=== PATIENT | female | born 1945 | race Caucasian/White ===

== ENCOUNTER 2016-09-29 07:31 | Inpatient (IN) ==
--- NOTE | 2016-09-28 20:54 | Discharge Summary ---
<Torri Sweet Karla - Last Filed: 09/28/16 20:52> Date of Encounter: 09/28/16 - Discharge Diagnosis (1) Arthritis of knee, left Priority: Primary Status: Acute (2) HTN (hypertension) Priority: Secondary Status: Chronic Qualifiers: Hypertension type: essential hypertension Qualified Code(s): I10 - Essential (primary) hypertension (3) A-fib Priority: Secondary Status: Chronic Qualifiers: Atrial fibrillation type: chronic Qualified Code(s): I48.2 - Chronic atrial fibrillation (4) Anticoagulated on Coumadin Priority: Secondary Status: Chronic - Discharge Medications Home Medications: Alendronate Sodium [Fosamax] 70 mg PO FR 11/18/15 [History] Hydrochlorothiazide 12.5 mg PO QAM 11/18/15 [History] Lovastatin [Mevacor] 20 mg PO HS 11/18/15 [History] Metoprolol XL (24 HR) Succ [Toprol XL] 25 mg PO QAM 11/18/15 [History] Omeprazole [PriLOSEC] 20 mg PO QAM 11/18/15 [History] PredniSONE 5 mg PO QAM 11/18/15 [History] Warfarin [Coumadin] 2.5 mg PO Q48H 11/18/15 [History] OxyCODONE Immed Rel [Roxicodone 5 MG] 5 - 10 mg PO Q6HR PRN #40 tablet 09/28/16 [Rx] Amlodipine Besylate 2.5 mg PO HS 09/29/16 [History] Enoxaparin [Lovenox] 30 mg SQ Q12HR 09/29/16 [History] Warfarin [Coumadin] 5 mg PO Q48H 09/29/16 [History] Allergies/Adverse Reactions: Allergies codeine Allergy (Verified 09/29/16 11:47) Dizziness albuterol Adverse Reaction (Verified 09/29/16 11:47) Blisters in mouth cephalexin [From Keflex] Adverse Reaction (Verified 09/29/16 11:47) blisters in mouth levofloxacin Adverse Reaction (Verified 09/29/16 11:47) patient unsure of reaction Primary care physician: Iván Rees - Patient Status Disposition: Home, Self-Care Condition: Good - Discharge Instructions Follow Up With: Ashwin Muñoz MD [Partnered Physician] - 10/26/16 10:35 am Trori Sweet, TRUONG [Physician Field Service Consultant] - 10/07/16 1:30 pm Eduardo Floyd DO [Primary Care Provider] - Tobias Perez DO [Partnered Physician] - 10/05/16 8:35 am - Hospital Course Hospital course: Ms. Sabillon is a 71 year old female - Time Spent with Patient Total time spent providing and/or coordinating discharge services: <ToniAshwin - Last Filed: 09/30/16 07:47> Date of Encounter: 09/30/16 Time of Encounter: 07:47 - Discharge Diagnosis (1) Arthritis of knee, left Priority: Primary Status: Acute (2) A-fib Priority: Secondary Status: Chronic Qualifiers: Atrial fibrillation type: chronic Qualified Code(s): I48.2 - Chronic atrial fibrillation (3) Anticoagulated on Coumadin Priority: Secondary Status: Chronic (4) HTN (hypertension) Priority: Secondary Status: Chronic Qualifiers: Hypertension type: essential hypertension Qualified Code(s): I10 - Essential (primary) hypertension (5) KRANTHI (acute kidney injury) Priority: Secondary Status: Resolved (6) Acute blood loss anemia Priority: Primary Status: Acute Primary care physician: Iván Rees - Patient Status Functional capacity at discharge: uses cane/walker Overall status at discharge: patient is progressing back to baseline - Hospital Course Hospital course: Ms. Sabillon is a 71 year old female The patient had an uneventful postoperative course. They received antibiotics and physical therapy and were discharged in stable condition. There will follow -up in the office in 2 weeks. Aspirin DVT prophylaxis - Time Spent with Patient Total time spent providing and/or coordinating discharge services:
[2016-09-29] MEDS ORDERED: Lidocaine 1% 20 ML MDV ID ONE (07:56)
[2016-09-29] MEDS ORDERED: Ringers Solution, Lactated 1,000 ML IVC SCH ×2 (08:00→11:19)
[2016-09-29] MEDS ORDERED: *HR* FentaNYL (PF) 100 MCG/2 ML VIAL ONE (08:01)
[2016-09-29] MEDS ORDERED: *HR* Midazolam HCl 2 MG/2 ML VIAL ONE (08:01)
[2016-09-29] MEDS ORDERED: *HR* Propofol 200 MG/20 ML VIAL IVP ONE (08:01)
[2016-09-29] MEDS ORDERED: Clindamycin 900 MG/50 ML 900 MG/50 ML IV.SOLN IVPB ONE (08:02)
--- NOTE | 2016-09-29 08:13 | History & Physical Report ---
Date of Encounter: 09/29/16 Time of Encounter: 08:12 24 Hour HP Update - Instructions Instructions: If the History and Physical is less than 30 days old and was completed prior to A.M. admission and or procedure and has NOT been updated on calendar day of procedure please complete this update prior to performing procedure. - Update Patient reports changes in Medical Condition: No Changes in assessment/condition: No Changes in Medication: No Preop tests/diagnostics Reviewed: Yes Surgery Remains Indicated: Yes Consent for Planned Operative Procedure(s) Verified: Yes - Pre-Operative Checklist Preoperative Checklist Indicated: No Prophylactic Antibiotic Ordered: Yes Is VTE Prophylaxis Indicated?: Yes
--- NOTE | 2016-09-29 08:14 | Anesthesia Evaluation PreOp ---
Date of Encounter: 09/29/16 Time of Encounter: 08:12 - Past History Planned Operation: left TKA Cardiac History: HTN, Hyperlipidemia, Arrhythmia (afib) Pulmonary History: Denies Any Significant HX SOLE STAPLER WELT History: CVA (resolved, no deficits) Other Medical History: Other (anemia, rheumatoid arthritis) Anesthesia History: No Prior Anesthetic Complications, Past Anesthesia (partial hysterectomy, laparoscopy, back surgery. No problems) : No Alcohol Use: none Drug use: none Medications and Allergies Amlodipine [Norvasc] 5 mg PO HS tablet 04/24/15 [Rx] Cholecalciferol (D-3) 1,000 unit PO DAILY tablet 04/24/15 [Rx] Lisinopril [Zestril] 10 mg PO BID tablet 04/24/15 [Rx] Metoprolol XL (24 HR) Succ [Toprol XL] 25 mg PO DAILY #30 tab.er.24h 04/24/15 [ Rx] Omeprazole [PriLOSEC] 20 mg PO DAILY@0600 capsule 04/24/15 [Rx] PredniSONE 5 mg PO DAILY tablet 04/24/15 [Rx] Warfarin [Coumadin] 5.5 mg PO 1800 tablet 04/24/15 [Rx] Alendronate Sodium [Fosamax] 70 mg PO QWEEK 11/18/15 [History] Amiodarone [Cordarone] 200 mg PO Q12H 11/18/15 [History] Hydrochlorothiazide 12.5 mg PO QAM 11/18/15 [History] Lovastatin [Mevacor] 20 mg PO HS 11/18/15 [History] Metoprolol XL (24 HR) Succ [Toprol XL] 25 mg PO QAM 11/18/15 [History] Omeprazole [PriLOSEC] 20 mg PO QAM 11/18/15 [History] PredniSONE 5 mg PO QAM 11/18/15 [History] Warfarin [Coumadin] 2.5 mg PO Q48H 11/18/15 [History] Warfarin [Coumadin] 3 mg PO Q48H 11/18/15 [History] MetroNIDAZOLE [Flagyl] 500 mg PO TID #21 tablet 11/21/15 [Rx] Potassium Chloride 20 meq PO BID #6 tab.er.prt 11/21/15 [Rx] OxyCODONE Immed Rel [Roxicodone 5 MG] 5 - 10 mg PO Q6HR PRN #40 tablet 09/28/16 [Rx] Allergies albuterol Allergy (Verified 05/16/16 14:27) Blister codeine Allergy (Verified 05/16/16 14:27) Dizziness - Meds/Allergy Pre-op Review Medications Reviewed: Yes Allergies Reviewed: Yes Beta Blockers on Current Med List: Yes If Beta Blockers taken, Date/Time (Last Dose taken): this morning about 6am Anesthesia Results - Labs Laboratory Tests 09/15/16 09/15/16 11:31 11:31 Hgb 12.0 Hct 38.5 Plt Count 245 Sodium 141 Potassium 3.4 L BUN 15 Creatinine 0.95 - Imaging EKG: report reviewed Additional studies: EF 60%, severly dilated left atrium. Anesthesia Exam Selected Entries 09/29/16 07:54 Temperature 98.8 F Pulse Rate 96 Respiratory Rate 18 Blood Pressure 140/87 O2 Sat by Pulse Oximetry 97 Height: 64in Weight: 150lbs NPO (# of Hours): 8 Pain Scale: 2 Pain Scale Used: Numeric (1 - 10) - HEENT Pupil (Motor): EOMI Mallampati: II Teeth: Edentulous (upper) Oral Opening: Greater than 3 - SOLE STAPLER WELT LOC: Oriented SOLE STAPLER WELT Motor: Normal RUE, Normal LUE, Normal RLE, Normal LLE, Normal Face SOLE STAPLER WELT Sensory: Normal: RUE, LUE, RLE, LLE, Face - Cardiac Rhythm: Irregular (afib) Murmur: None - Pulmonary Breath Sounds: bilateral Clear Respiratory Effort: Symmetrical Anesthesia Assess/Plan ASA Score: 3 Modified Farida Scale for Level of Consciousness: Cooperative, oriented, and tranquil Anesthetic Plan: General Monitoring Plan: Standard Monitors Recovery Plan: PACU (Discussed risks of GA and block. Questions answered. Agrees to proceed with block and GA)
[2016-09-29] MEDS ORDERED: Bupivacaine/Clonidine Syringe 1 EACH SYRINGE ONE (08:21)
--- NOTE | 2016-09-29 08:59 | Anesthesia Procedures ---
Date of Encounter: 09/29/16 Time of Encounter: 08:57 Procedures: Anesthesia - Nerve Block Procedure Date: 09/29/16 Time: 08:57 Allergies/Adv Reactions: albuterol Allergy (Verified 05/16/16 14:27) Blister codeine Allergy (Verified 05/16/16 14:27) Dizziness Pre-op Diagnosis: OA left knee Surgical Procedure: left total knee Checklist: Correct Patient Identifier, Correct procedure, History checked Correct side: Left Blood Thinner: No Monitor Applied: EKG, BP, Pulse Oximetry Supplemental Oxygen via Nasal Cannula (L/min): 2 Sedation: Versed (mg): 2 Sedation: Fentanyl (mcg): 100 Indication: Post Op Analgesia Pre-op Neuro Deficits: No Block Type: Femoral (30cc 0.5% bup), Other (iPACK 20cc 0.25% bup) Catheter placed: No Sterile Technique: Yes Ultrasound used: Yes Anatomy identified: Yes Visual spread of Local: Yes Neuro Stimulation: Yes Nerve Stimulator Range: 0.2 - 0.4 mA Blood on Needle Aspiration: No Smooth Injection of Local: Yes Pain with Injection of Local: No Prep: Chlorhexadine Needle: 22 x 50 mm Stimuplex, 21 x 100 mm Stimuplex Local: Other (see above) Volume (cc): 50 Number of Attempts: 1 Complications: None/effective block Vitals: Vital Signs/O2 Sat, Most Current Temp Pulse Resp BP Pulse Ox 98.8 F 80 16 133/87 97 09/29/16 07:54 09/29/16 08:51 09/29/16 08:51 09/29/16 08:51 09/29/16 08:51 Comments: peripheral nerve block with ultrasound for post op pain relief per dr botello request
[2016-09-29] MEDS ORDERED: *HR* HYDROmorphone (PF) 1 MG/ML SYRINGE IVP PRN ×2 (09:02→11:19)
[2016-09-29] MEDS ORDERED: Ondansetron 4 MG/2 ML VIAL ONE (09:43)
[2016-09-29] MEDS ORDERED: Dexamethasone 4 MG/ML VIAL ONE (09:43)
--- NOTE | 2016-09-29 09:51 | Orthopedic Operative Note ---
Date of procedure: 09/29/16 Pre-op diagnosis: Left knee arthritis Post-op diagnosis: same Procedure: Procedure: Left Total knee replacement Estimated blood loss: 700 cc Hardware: Arthrex Femur: 3 Tibia: 4 PS insert: 20 Patella: 34 Exam Under anesthesia: Full flexion full extension no instability Procedural Notes: Grade 4 arthritic changes medial compartment patellofemoral joint. Operative procedure: The patient was brought to the operating room and placed on the operating room table. After general anesthesia was administered the operative knee was examined. Findings were noted in the exam under anesthesia. The operative extremity was prepped and draped in sterile surgical fashion. The patient received IV antibiotics prior to skin incision. A standard midline incision was made centered over the patella. The incision was made through the skin and subcutaneous tissue. A medial parapatellar tendon approach was performed. Care was taken to preserve tissue along the medial aspect of the patella. And to protect the patella tendon. The deep MCL was released off the medial tibia. The infra patella fat pad was excised. Knee was brought into flexion. Patient noted to have grade 4 arthritic changes medial compartment patellofemoral joint. The entry hole was made for the intramedullary femoral guide. The guide was seated in 6 degrees of valgus. Anterior cut was made followed by the distal cut. The ACL the PCL the medial and the lateral menisci were excised. The tibia was subluxed forward. The entry hole was made for the intramedullary tibial guide. Guide was seated to resect 2 mm off the more abnormal side. The knee was brought into flexion the distal femur was sized to a 3. The femoral guide was seated, the anterior cut was made followed by the posterior condylar cut, followed by the chamfer cuts. The finishing guide was seated the box cut was made and the lug holes were drilled. The tibia was sized to a 4 the tibial tray was seated and prepared with the large drill followed by the fin cutter. Trial reduction revealed full extension no varus valgus instability with the appropriate 20 PS Noemy. The patella was everted and cut was made at the level of the insertion of the quadriceps and patella tendon. The patella was sized to a 34 the guide was seated and the lug holes are drilled. Trial reduction revealed excellent patella tracking. All trial components were removed all bony surfaces were irrigated. The tibia was cemented first followed by the femur. The 20 PS Noemy was seated and the knee was brought into full extension. The patella was cemented and held in place with the patellar holding clamp. After the cement had hardened, the knee sat for 2 minutes with a Betadine saline solution. The knee was then irrigated out with 2 L of pulse irrigation. The extensor mechanism was closed with #2 FiberWire suture and #2 PDS suture. The subcutaneous tissue was then irrigated and closed deep with #1 PDS suture superficially with 0 PDS suture and skin was closed with skin carmen and Dermabond. The patient was then placed in a sterile dressing and a postoperative brace extubated and transferred to recovery room in stable condition. Anesthesia: GETA Surgeon: Ashwin Muñoz Condition: stable Disposition: PACU
--- NOTE | 2016-09-29 10:50 | Anesthesia Evaluation Post Op ---
Date of Encounter: 09/29/16 Time of Encounter: 10:49 - Vital Signs Vital Signs: Vital Signs/O2 Sat, Most Current Temp Pulse Resp BP Pulse Ox 97.4 F L 73 18 112/72 97 09/29/16 10:44 09/29/16 10:44 09/29/16 10:44 09/29/16 10:44 09/29/16 10:44 - Lungs Lungs: Clear Ascult./Percussion - Airway Airway: Non-obstructed - Cardiovascular Regular Rate - Mental Status Mental Status: Alert & Oriented, Answers Appropriately - Pain Pain Scale: 0 - Nausea Vomiting Nausea Vomiting: Not Present - Hydration Hydration: Ice chips, Able to void - Discharge PostOp Status: Transfer Patient to floor
[2016-09-29 11:11] LABS: Hematocrit 32.6 % (35.3-44.9); Hemoglobin 10.2 g/dL (11.5-15.4)
[2016-09-29] MEDS ORDERED: Naloxone 0.4 MG/ML INJ IVP PRN (11:19)
[2016-09-29] MEDS ORDERED: Acetaminophen 325 MG TABLET PO PRN (11:19)
[2016-09-29] MEDS ORDERED: *HR* OxyCODONE Immed Rel 5 MG TABLET PO PRN (11:19)
[2016-09-29] MEDS ORDERED: MOM Conc 10 ML UD.LIQ PO PRN (11:19)
[2016-09-29] MEDS ORDERED: Ondansetron 4 MG/2 ML VIAL IVP PRN (11:19)
[2016-09-29] MEDS ORDERED: Sennosides 8.6 MG TABLET PO PRN (11:19)
[2016-09-29] MEDS ORDERED: Temazepam 15 MG CAPSULE PO PRN (11:19)
[2016-09-29] MEDS: Clindamycin 900 MG/50 ML 900 MG/50 ML IV.SOLN IVPB SCH (16:54)
[2016-09-29] MEDS: *HR* Enoxaparin 30 MG/0.3 ML SYRINGE SQ SCH (16:55)
[2016-09-29] MEDS ORDERED: *HR* Enoxaparin 30 MG/0.3 ML SYRINGE SQ SCH (18:00)
[2016-09-29] MEDS: *HR* OxyCODONE Immed Rel 5 MG TABLET PO PRN (21:01)
[2016-09-30] MEDS: Clindamycin 900 MG/50 ML 900 MG/50 ML IV.SOLN IVPB SCH (00:55)
[2016-09-30 05:00] LABS: Hematocrit 27.7 % (35.3-44.9)
[2016-09-30 05:17] LABS: BUN/Creatinine Ratio 17 (6-26); Blood Urea Nitrogen 15 mg/dL (7-20); Calcium 8.5 mg/dL (8.6-10.8); Carbon Dioxide 23 mEq/L (19-29); Chloride 102 mEq/L (98-109); Glucose 110 mg/dL (70-99); Osmolality,Calculated 283 (280-300); Potassium 3.8 mEq/L (3.5-4.5); Sodium 136 mEq/L (136-145); eGFR For African Americans > 60 (> 60); eGFR For Non-African Americans > 60 (> 60)
[2016-09-30] MEDS: *HR* Enoxaparin 30 MG/0.3 ML SYRINGE SQ SCH (06:20)
--- NOTE | 2016-09-30 07:48 | Orthopedics Progress Note ---
Date of Encounter: 09/30/16 Time of Encounter: 07:48 - Assessment and Plan (1) Arthritis of knee, left Current Visit: Yes Status: Acute (2) A-fib Current Visit: Yes Status: Chronic Qualifiers: Atrial fibrillation type: chronic Qualified Code(s): I48.2 - Chronic atrial fibrillation (3) Anticoagulated on Coumadin Current Visit: Yes Status: Chronic (4) HTN (hypertension) Current Visit: Yes Status: Chronic Qualifiers: Hypertension type: essential hypertension Qualified Code(s): I10 - Essential (primary) hypertension (5) KRANTHI (acute kidney injury) Current Visit: No Status: Resolved (6) Acute blood loss anemia Current Visit: Yes Status: Acute Subjective Interval history: Patient was seen this morning doing well without complaints. Afebrile vital signs stable. Operative extremity: Neurovascularly intact Dressing clean dry and intact Calves nontender Assessment and plan: Continue with postoperative care Hemoglobin 9.0 discharged today Objective Vital signs: Vital Signs Temp Pulse Resp BP Pulse Ox 09/30/16 06:30 99.0 F 97 20 119/71 96 09/30/16 05:22 100.7 F H 102 16 100/61 92 L 09/30/16 01:22 100.4 F H 105 17 114/66 94 L 09/29/16 21:37 97.9 F 91 16 109/60 97 09/29/16 14:30 98.4 F 96 18 144/92 98 09/29/16 13:20 97.9 F 70 17 99 09/29/16 12:25 97.6 F 84 16 109/88 97 09/29/16 11:20 97.7 F 80 17 133/80 98 09/29/16 10:54 97.4 F L 70 18 120/82 97 09/29/16 10:44 97.4 F L 73 18 112/72 97 09/29/16 10:34 79 18 100/72 97 09/29/16 10:24 81 20 112/76 97 09/29/16 10:14 98.0 F 88 20 123/74 98 09/29/16 08:51 80 16 133/87 97 09/29/16 08:40 92 18 164/104 98 09/29/16 07:54 98.8 F 96 18 140/87 97 Intake and Output 09/29/16 09/29/16 09/30/16 15:59 23:59 07:59 Intake Total 50 / 50 50 / 50 Output Total 700 / 700 Balance -650 / -650 50 / 50 Intake: IV Fluids 50 / 50 50 / 50 Cleocin 900 MG/50 ML 900 50 / 50 50 / 50 mg In 50 ml @ 50 mls/hr IVPB Q8HR ELVIN Rx#: [id number] Output: Estimated Blood Loss 700 / 700 Other: # Voids 1 - Labs CBC & BMP: 09/30/16 04:39 09/30/16 04:39 Labs: Abnormal lab results Hgb 9.0 g/dL (11.5-15.4) L 09/30/16 04:39 Hct 27.7 % (35.3-44.9) L 09/30/16 04:39 Glucose 110 mg/dL (70-99) H 09/30/16 04:39 Calcium 8.5 mg/dL (8.6-10.8) L 09/30/16 04:39 - VTE Documentation of Mechanical Device: Venous foot pump, device Consult Discharge Plan - Plan Referrals: Ashwin Muñoz MD [Partnered Physician] - 10/26/16 10:35 am Torri Sweet PAC [Physician Criminal Justice Teacher] - 10/07/16 1:30 pm Eduardo Floyd DO [Primary Care Provider] - Tobias Perez DO [Partnered Physician] - 10/05/16 8:35 am
[2016-09-30] MEDS: *HR* OxyCODONE Immed Rel 5 MG TABLET PO PRN ×2 (08:20→14:41)
[2016-09-30] MEDS ORDERED: Metoprolol XL (24 HR) Succ 25 MG TAB.ER.24H PO SCH (09:00)
[2016-09-30] MEDS ORDERED: hydroCHLOROthiazide 25 MG TABLET PO SCH (09:00)
[2016-09-30] MEDS ORDERED: amLODIPine 5 MG TABLET PO SCH (09:00)
[2016-09-30 14:28] VITALS: BP 126/72
[2016-10-01] MEDS ORDERED: ALENDRONATE 70 MG PO SCH (09:00)
== END 2016-09-30 17:30 | disposition home or self-care (01) | DRG 470 ==
LOC: SAMDAY 07:31 → 3NENU 11:18
PROVIDERS: ADMIT Orthopaedic Surgery; ATTEND Orthopaedic Surgery

== ENCOUNTER 2016-10-23 18:42 | Inpatient (IN) ==
--- NOTE | 2016-10-23 19:00 | Emergency Department Note ---
Disposition Clinical Impression: Atrial fibrillation with RVR Disposition: Admitted As Inpatient Condition: Fair Time of Disposition: 21:14 Arrhythmia/Palpitations HPI - General Chief Complaint: ED Arrhythmia/Palpitations Stated Complaint: "Think im in afib" Time Seen by Provider: 10/23/16 18:58 Source: patient, family Limitations: no limitations Nursing Notes Reviewed: Yes Vital Signs Reviewed: Yes - History of Present Illness HPI Narrative: 71-year-old female on Coumadin, history of paroxysmal A. fib, not usually in atrophic ablation was felt subjective palpitations for the last few weeks. She recently had a left knee replacement with Dr. Muñoz, she states that she has had 8 out of 10 now currently 6 out of 10 crampy chest pressure worse with exertion, increased shortness of breath and dyspnea on exertion. Patient states that she has been feeling lightheaded when she walks around. She has some improvement with standing still. Patient states that she is not able to take Tikosyn or amiodarone and was also discontinued on her Toprol recently for hypotension by Dr. Perez her general maintenance engineer. She denies hematuria dysuria productive cough, nausea vomiting diarrhea or constipation Pt Subjective Complaint: rapid heart beat Onset (ago): week(s) (2) Duration: intermittent Severity: moderate Context: occurred during rest, occurred during exertion Arrhythmia History: atrial fibrillation Associated symptoms: Reports: chest pain, shortness of breath, near-syncope. Denies: nausea, vomiting, anxiety, diaphoresis - Related Data Home Medications Medication Instructions Recorded Confirmed Alendronate Sodium [Fosamax] 70 mg PO 11/18/15 09/29/16 Hydrochlorothiazide 12.5 mg PO [facility] 11/18/15 09/29/16 Lovastatin [Mevacor] 20 mg PO 11/18/15 09/29/16 Metoprolol XL (24 HR) Succ [Toprol 25 mg PO QAM 11/18/15 09/29/16 XL] Omeprazole [PriLOSEC] 20 mg PO QAM 11/18/15 09/29/16 PredniSONE 5 mg PO [facility] 11/18/15 09/29/16 Warfarin [Coumadin] 2.5 mg PO Q48H 11/18/15 09/29/16 Amlodipine Besylate 2.5 mg PO 09/29/16 09/29/16 Enoxaparin [Lovenox] 30 mg SQ Q12HR 09/29/16 09/29/16 Warfarin [Coumadin] 5 mg PO Q48H 09/29/16 09/29/16 Previous Rx's Medication Instructions Recorded OxyCODONE Immed Rel [Roxicodone 5 5 - 10 mg PO Q6HR PRN #40 tablet 09/28/16 MG] Allergies Allergy/AdvReac Type Severity Reaction Status Date / Time codeine Allergy Dizziness Verified 09/29/16 11:47 albuterol AdvReac Blisters Verified 09/29/16 11:47 in mouth cephalexin [From Keflex] AdvReac blisters Verified 09/29/16 11:47 in mouth levofloxacin AdvReac patient Verified 09/29/16 11:47 unsure of reaction Constitutional: Denies: as per HPI, fever, chills, weakness Cardiovascular: Reports: as per HPI, chest pain, palpitations, dyspnea on exertion. Denies: syncope Respiratory: Reports: as per HPI, dyspnea. Denies: cough, wheezes, hemoptysis Gastrointestinal: Denies: abdominal pain, nausea, vomiting, diarrhea, hematochezia Genitourinary: Denies: urgency, dysuria, hematuria Neurological: Denies: headache Past Medical History - Past Medical History Attestation: Yes The following information was validated with the patient. Source: patient Medical history: Reports: atrial fibrillation, GERD, hypertension Surgical history: Reports: hysterectomy Psychiatric history: Reports: no psych history DIRECTOR OF CASEWORK history: Reports: no DIRECTOR OF CASEWORK history - Social History Smoking Status: Never smoker Smokeless Tobacco Status: No Alcohol use: Reports: none Drug use: Reports: none Physical Exam Constitutional: Thin pleasant elderly female alert and oriented, mild distress , tachycardic irregular rhythm Neck: normal inspection, neck is supple, trachea midline Resp: normal chest inspection, CTA bilaterally, no resp distress CV: Irregularly irregular. GI: Soft nontender nondistended abdomen Back: normal inspection, no tenderness to palpation Neuro: A&O3, no gross motor or sensory deficits bilaterally MSK: normal inspection, bilateral UE and LE with normal ROM Psych: normal mood, normal affect Skin: No rashes, skin warm, dry, intact - General Limitations: no limitations General appearance: alert Course Course Narrative: 71-year-old female with atrial fibrillation, history of paroxysmal A. fib, she appears to be in A. fib with RVR will start on Cardizem drip, basic lab work plan admit to hospital - Reevaluation(s) Reevaluation #1: Labwork reviewed troponin negative, EKG with no acute changes, admitting hospital service for workup and cardiology consultation, HR 92 vital signs stable patient stress Time: 21:14 Vital Signs Temperature 97.7 F 10/23/16 18:45 Pulse Rate 111 10/23/16 18:45 Respiratory Rate 16 10/23/16 18:45 Blood Pressure 159/85 10/23/16 18:45 O2 Sat by Pulse Oximetry 100 10/23/16 18:45 Temperature 97.7 F 10/23/16 18:45 Pulse Rate 88 10/23/16 20:08 Respiratory Rate 18 10/23/16 21:14 Blood Pressure 146/93 10/23/16 21:14 O2 Sat by Pulse Oximetry 100 10/23/16 20:08 Oxygen Delivery Oxygen Delivery Room Air Arrhythmia/Palpitations - MDM Narrative Medical decision making narrative: 71-year-old female atrial fibrillation RVR history of paroxysmal A. fib on Coumadin Cardizem Drip and Admitted to Medicine Service in Stable Condition - Differential Diagnosis Differential Diagnosis: Likely: palpitations, undetermined arrhythmia - Medical Records Medical records reviewed: Yes I reviewed the patient's medical records. - Lab Data Lab results reviewed: Yes I reviewed the patient's lab results. Result diagrams: 10/23/16 18:30 10/23/16 18:30 Lab Results 10/23/16 10/23/16 10/23/16 Range/Units 18:30 18:30 18:30 WBC 6.4 (4.3-11.1) K/mcL RBC 3.97 (3.82-4.97) M/mcL Hgb 10.0 L (11.5-15.4) g/dL Hct 32.8 L (35.3-44.9) % MCV 82.6 L (83.0-100.0) fL MCH 25.2 L (28.0-33.3) pg MCHC 30.5 L (31.6-35.5) g/dL RDW 15.2 H (11.5-14.5) % Plt Count 270 (140-400) K/mcL MPV 10.6 (9.4-12.4) fL Immature Gran % 0.2 (0-4) % Seg Neutrophils % 56.3 % Lymphocytes % 34.4 % Monocytes % 8.6 % Eosinophils % 0.2 % Basophils % 0.3 % Neutrophils # 3.6 (1.6-8.9) K/mcL Lymphocytes # 2.2 (0.6-4.6) K/mcL Monocytes # 0.6 (0.0-1.3) K/mcL Eosinophils # 0.0 (0.0-0.6) K/mcL Basophils # 0.0 (0.0-0.2) K/mcL PT 27.8 H (9.4-12.1) Seconds INR 2.5 APTT 31.0 (26.0-36.0) Seconds Sodium 140 (136-145) mEq/L Potassium 3.0 L (3.5-4.5) mEq/L Chloride 105 (98-109) mEq/L Carbon Dioxide 24 (19-29) mEq/L BUN 12 (7-20) mg/dL Creatinine 0.87 (0.57-1.11) mg/dL Est GFR ( Amer) > 60 (> 60) Est GFR (Non-Af Amer) > 60 (> 60) BUN/Creatinine Ratio 14 (6-26) Glucose 94 (70-99) mg/dL Calculated Osmolality 290 (280-300) Calcium 8.5 L (8.6-10.8) mg/dL Magnesium 1.6 (1.6-2.6) mg/dL Troponin I (0-0.03) ng/mL TSH 2.362 (0.350-4.840) mcIU/mL Urine Color (Yellow) Urine Clarity (Clear) Urine pH (5.0-8.0) pH Units Ur Specific [place] (1.010-1.025) Urine Protein (Neg-Trace) mg/dL Urine Glucose (UA) (Normal) mg/dL Urine Ketones (Negative) mg/dL Urine Blood (Negative) Urine Nitrite (Negative) Urine Bilirubin (Negative) Urine Urobilinogen (Normal) mg/dL Ur Leukocyte Esterase (Negative) Urine Microscopic RBC (0-3) per hpf Urine Microscopic WBC (0-3) per hpf Ur Squamous Epith Cells (None-Few) per lpf Urine Bacteria (None-Few) per hpf Hyaline Casts (None-Few) per lpf Ur Culture Indicated? (NO) 10/23/16 10/23/16 Range/Units 18:30 19:57 WBC (4.3-11.1) K/mcL RBC (3.82-4.97) M/mcL Hgb (11.5-15.4) g/dL Hct (35.3-44.9) % MCV (83.0-100.0) fL MCH (28.0-33.3) pg MCHC (31.6-35.5) g/dL RDW (11.5-14.5) % Plt Count (140-400) K/mcL MPV (9.4-12.4) fL Immature Gran % (0-4) % Seg Neutrophils % % Lymphocytes % % Monocytes % % Eosinophils % % Basophils % % Neutrophils # (1.6-8.9) K/mcL Lymphocytes # (0.6-4.6) K/mcL Monocytes # (0.0-1.3) K/mcL Eosinophils # (0.0-0.6) K/mcL Basophils # (0.0-0.2) K/mcL PT (9.4-12.1) Seconds INR APTT (26.0-36.0) Seconds Sodium (136-145) mEq/L Potassium (3.5-4.5) mEq/L Chloride (98-109) mEq/L Carbon Dioxide (19-29) mEq/L BUN (7-20) mg/dL Creatinine (0.57-1.11) mg/dL Est GFR ( Amer) (> 60) Est GFR (Non-Af Amer) (> 60) BUN/Creatinine Ratio (6-26) Glucose (70-99) mg/dL Calculated Osmolality (280-300) Calcium (8.6-10.8) mg/dL Magnesium (1.6-2.6) mg/dL Troponin I 0.02 (0-0.03) ng/mL TSH (0.350-4.840) mcIU/mL Urine Color Yellow (Yellow) Urine Clarity Clear (Clear) Urine pH 6.5 (5.0-8.0) pH Units Ur Specific [place] 1.010 (1.010-1.025) Urine Protein Negative (Neg-Trace) mg/dL Urine Glucose (UA) Normal (Normal) mg/dL Urine Ketones Negative (Negative) mg/dL Urine Blood Negative (Negative) Urine Nitrite Positive A (Negative) Urine Bilirubin Negative (Negative) Urine Urobilinogen Normal (Normal) mg/dL Ur Leukocyte Esterase Negative (Negative) Urine Microscopic RBC 0-3 (0-3) per hpf Urine Microscopic WBC 0-3 (0-3) per hpf Ur Squamous Epith Cells Moderate H (None-Few) per lpf Urine Bacteria Many H (None-Few) per hpf Hyaline Casts None Seen (None-Few) per lpf Ur Culture Indicated? YES A (NO) - Radiology Data Radiology results reviewed: Yes I reviewed the patient's radiology results. Chest X-Ray 10/23/16 18:58 IMPRESSION: No acute cardiopulmonary disease. Hiatal hernia. D/ / 10/23/2016 19:30:52 Jamie Leonard MD / [email or web address] Interpreting Provider: Jamie Leonard MD - EKG Data EKG attestation: Yes I reviewed and interpreted this EKG. EKG shows normal: sinus rhythm Rate: tachycardia Rhythm: A.Fib Interpretation: no acute changes, unchanged when compared to prior tracing (date ) - Core Measures AMI Core Measures Followed: No Measure Exclusions: not indicated Critical Care Time Critical Care Time: Yes Total Critical Care Time: 40 Attestation: Critical care performed: Time is exclusive of separately billable procedures. Time includes: direct patient care, patient reassessment, coordination of patient care, interpretation of data (laboratory data, radiology data, and respiratory data), review of patient's medical records, medical consultation and documentation of patient care. Procedures included in critical care time: Procedures excluded from critical care time: Attestation Statement - Attestation Attestation: I, Claudio Simon MD, personally performed a history and physical exam of the patient and discussed their management with the resident. I reviewed the resident's note and agree with the documented findings, medical decision making , and plan of care. 71-year-old female with history of paroxysmal atrial fibrillation presents to the emergency department with a complaint of 2 week history of palpitations associated with some shortness of breath with exertion and some chest discomfort. Some dizziness and lightheadedness. No syncope. On examination patient is a well-developed well-nourished well-appearing elderly female in no acute distress. She is alert and oriented 3. There is no cyanosis or diaphoresis. Breath sounds are clear and equal bilaterally. Heart irregularly irregular with mild tachycardia. Abdomen soft and nontender with normal bowel sounds. EKG shows atrial fibrillation with heart rate of 100. Chest x-ray negative. Labs reviewed with no significant acute abnormalities. Troponin normal. Patient received a Cardizem bolus and was placed on Cardizem infusion with control of her heart rate. The hospitalist, Dr. Barnett, was consulted and accepted admission of the patient.
[2016-10-23 19:07] LABS: Basophils % 0.3 %; Eosinophils % 0.2 %; Hematocrit 32.8 % (35.3-44.9); Immature Granulocytes % 0.2 % (0-4); Lymphocytes # 2.2 K/mcL (0.6-4.6); Lymphocytes % 34.4 %; Mean Corpuscular HGB Conc 30.5 g/dL (31.6-35.5); Mean Corpuscular Hemoglobin 25.2 pg (28.0-33.3); Mean Corpuscular Volume 82.6 fL (83.0-100.0); Mean Platelet Volume 10.6 fL (9.4-12.4); Monocytes # 0.6 K/mcL (0.0-1.3); Monocytes % 8.6 %; Neutrophils # 3.6 K/mcL (1.6-8.9); Platelet Count 270 K/mcL (140-400); Red Blood Count 3.97 M/mcL (3.82-4.97); Red Cell Distribution Width 15.2 % (11.5-14.5); Segmented Neutrophils % 56.3 %
[2016-10-23 19:13] LABS: INR 2.5; Prothrombin Time 27.8 Seconds (9.4-12.1)
[2016-10-23 19:19] LABS: BUN/Creatinine Ratio 14 (6-26); Blood Urea Nitrogen 12 mg/dL (7-20); Calcium 8.5 mg/dL (8.6-10.8); Carbon Dioxide 24 mEq/L (19-29); Chloride 105 mEq/L (98-109); Glucose 94 mg/dL (70-99); Osmolality,Calculated 290 (280-300); Sodium 140 mEq/L (136-145); eGFR For African Americans > 60 (> 60); eGFR For Non-African Americans > 60 (> 60)
[2016-10-23] MEDS ORDERED: 0.9 % Sodium Chloride 1,000 ML IV SCH (19:30)
[2016-10-23 19:41] LABS: Magnesium 1.6 mg/dL (1.6-2.6); Thyroid Stimulating Hormone 2.362 mcIU/mL (0.350-4.840)
[2016-10-23 20:04] LABS: Bilirubin,Urine Negative (Negative); Blood,Urine Negative (Negative); Clarity,Urine Clear (Clear); Color,Urine Yellow (Yellow); Glucose,Urine (UA) Normal (Normal); Ketones,Urine Negative (Negative); Leukocyte Esterase,Urine Negative (Negative); Nitrite,Urine Positive (Negative); PH,Urine 6.5 pH Units (5.0-8.0); Protein,Urine Negative (Neg-Trace); Urobilinogen,Urine Normal (Normal)
[2016-10-23 20:06] LABS: Bacteria,Urine Many per hpf (None-Few); Hyaline Casts,Urine None Seen per lpf (None-Few); RBC,Urine 0-3 per hpf (0-3); Squamous Epithelial Cell,Urine Moderate per lpf (None-Few); WBC,Urine 0-3 per hpf (0-3)
[2016-10-23] MEDS ORDERED: *HR* Metoprolol 5 MG/5 ML VIAL IVP PRN (21:34)
[2016-10-23] MEDS ORDERED: Acetaminophen 325 MG TABLET PO PRN (21:34)
[2016-10-23] MEDS ORDERED: *HR* OxyCODONE Immed Rel 5 MG TABLET PO PRN (21:34)
[2016-10-23] MEDS ORDERED: *HR* Morphine 2 MG/ML SYRINGE IVP PRN (21:34)
[2016-10-23] MEDS ORDERED: Ondansetron 4 MG/2 ML VIAL IVP PRN (21:34)
[2016-10-23] MEDS ORDERED: Naloxone 0.4 MG/ML INJ IVP PRN (21:34)
[2016-10-23] MEDS ORDERED: Ketorolac 15 MG/ML VIAL IVP ONE (21:34)
[2016-10-23] MEDS ORDERED: Pantoprazole 40 MG VIAL IVP STA (21:34)
[2016-10-23] MEDS ORDERED: Magnesium Sulfate 1 GM in D5% in Water 100 ML IVPB ONE (21:34)
[2016-10-23] MEDS: 0.9 % Sodium Chloride 1,000 ML IV SCH (22:59)
[2016-10-23] MEDS ORDERED: Potassium Chloride Elixir 20 MEQ/15 ML UDC GTUBE STA (23:20)
[2016-10-23] MEDS ORDERED: Potassium Chloride 40 MEQ, Lidocaine 1% 2 ML in D5% in Water 500 ML IVPB STA (23:20)
[2016-10-23] MEDS ORDERED: *HR* Warfarin 2.5 MG TABLET PO SCH ×2 (23:30)
--- NOTE | 2016-10-23 23:39 | Internal Med History&Physical ---
Date of Encounter: 10/23/16 Time of Encounter: 21:00 Assessment and Plan (1) Chest pain, rule out acute myocardial infarction Status: Acute . (2) Chest pain with low risk of acute coronary syndrome Status: Acute . (3) Atrial fibrillation with RVR Status: Acute . (4) Cough Status: Acute . (5) Dehydration Status: Acute . (6) Diverticulitis Status: Chronic . Qualifiers: Diverticulitis site: large intestine Diverticulitis bleeding: with bleeding Diverticulitis complication: without perforation or abscess Qualified Code(s): K57.33 - Diverticulitis of large intestine without perforation or abscess with bleeding (7) Hypokalemia Status: Acute . (8) Weakness generalized Status: Acute . (9) Anticoagulated on Coumadin Status: Chronic . (10) HTN (hypertension) Status: Chronic . Qualifiers: Hypertension type: essential hypertension Qualified Code(s): I10 - Essential (primary) hypertension (11) PAF (paroxysmal atrial fibrillation) Status: Chronic . (12) Anemia associated with acute blood loss Status: Chronic . (13) Dyslipidemia Status: Chronic . (14) Hypocalcemia Status: Acute . (15) Osteoarthritis involving multiple joints on both sides of body Status: Chronic . (16) Osteoporosis Status: Chronic . Qualifiers: Osteoporosis type: age-related Presence of current pathological fracture: without current pathological fracture Qualified Code(s): M81.0 - Age-related osteoporosis without current pathological fracture Internal Medicine - H&P: HPI Chief complaint: "I think I am in A. fib" Admitted From: Emergency Dept Plans for Post Hospital Care: Home History of present illness: Ms. Sabillon is a 71 year old female patient presents with a history of paroxysmal atrial fibrillation has subjectively felt palpitations for the last few weeks. Recently underwent left total knee replacement. Presents with complaints of rapid irregular heartbeats and crampy chest pressure. Pain is rated as a 6-8/10 in severity intermittently. Increased shortness of breath and dyspnea on exertion and postural lightheadedness also experienced. Findings confirm atrial fibrillation RVR. Patient is currently on Coumadin therapy. Intravenous Cardizem drip initiated for rate control and admission facilitated to complete evaluation and rule out ACS/UA. The patient was visited and interviewed and examined. Cumulative laboratory and radiographic data base will be considered and discussed. Pertinent ancillary medical records including ECW and PCI documentation when available was reviewed and considered. Given the patient's presenting concerns, past medical history, clinical findings and symptoms, she is admitted at this time will undergo further evaluation and disposition. Orders were written as per Computerized physician telephone order clerk room service system.......................................................................... .................... Consultative opinion and will be sought as clinical circumstances justify. Pain management needs will be addressed. Laboratory radiographic data base will be updated as appropriate. Studies include: Cultures of blood and urine and sputum, negative cardiac injury panel, BNP, troponin metabolic and hematologic panel, magnesium phosphorus, ionized calcium, thyroid panel lipid profile, A1c C-peptide, CRP sedimentation rate, respiratory infection profile, respiratory virus panel, blood gas, lactic acid, serologies, etc. Precautions: Aspiration, fall, delirium protocol/surveillance initiated. Telemetry with continuous hemodynamic monitoring and pulse oximetry initiated. Empiric antibiotic coverage: pending culture data. Special studies: CT/CTA chest, chest x-ray, telemetry, EKG, 2D echo. Pulmonary toilet: Incentive spirometry, aerosol bronchodilator, mucolytic, antitussive, supplemental oxygen. Corticosteroid therapy. CPAP/BiPAP supplemental oxygen delivery employed. Aerosol Mucomyst therapy may be employed. Fluid and electrolyte repletion efforts will proceed. Careful attention to fluid balance and renal recovery will be emphasized. Avoidance of nephrotoxic exposure and adverse drug drug interaction in the setting of impaired renal function will be monitored closely. Acute coronary syndrome protocol/surveillance initiated. Intravenous Cardizem drip and loading dose as per protocol. Continuance of chronic anticoagulation. Coumadin dosing per pharmacy with goal INR 2-3. DVT and PUD prophylaxis initiated: PPI therapy, intermittent pneumatic cuffs. Early ambulation will be encouraged. Immunization updates recommended. Influenza and pneumococcal vaccinations as part of ongoing preventative healthcare recommendations strongly recommended. Smoke cessation counseling briefly addressed. Patient is a nonsmoker. Advanced care directive discussion briefly addressed. Patient does not declare any healthcare restrictions at this time. Cardiovascular risk appraisal and cardiovascular risk reduction efforts will be emphasized. Physical occupational therapy may be counseled to evaluate patient's function capacity and progressive mobility of her circumstances justify. Sliding scale insulin coverage, ADA dietary restraint and schedule an as-needed basis fingerstick glucose assessments were initiated. Nutrition/diabetes education counseling may be considered as circumstances justify. Outpatient medication schedules will be reviewed confirmed and facilitated as appropriate. Reconciliation of home treatments including adjustment substitutions and reintroduction into the treatment regimen as necessary maintenance therapies for chronic pre-existing medical conditions. Plan of care has been reviewed and discussed in detail with the patient. Questions addressed. Hospital course and clinical findings, treatment response and potential consultative interventions. Patient is a risk for further acute clinical decline due to her age, chief complaints and comorbid conditions. Condition is serious. Prognosis is guarded. CODE STATUS is full. Past Med Surg Social Fam HX - Past Medical History Source: old records reviewed Medical history: arthritis, atrial fibrillation, GERD, GI bleed, hypertension, osteoporosis, RA Psychiatric history: no psych history - Past Surgical History Surgical History: hysterectomy - Social History Smoking Status: Never smoker Smokeless Tobacco Status: No Alcohol use: none Drug use: none - Family History Mother Adopted: No Family Member Ethnicity: Non- Living Status: Hx Family Cardiac Disorders: Yes Hx Family Respiratory Disorders: No Hx Family Cancer: No Hx Family GI Disorders: No Hx Family Endocrine Disorder: No Hx Family Neuromuscular Disorders: No Hx Family Neurologic Disorders: No Hx Family HEENT Disorders: No Hx Family Autoimmune Disorders: Yes Father Living Status: Age at : 62 Cause of : Heart attack Hx Family Cardiac Disorders: Yes Internal Medicine - H&P: Meds Alendronate Sodium [Fosamax] 70 mg PO FR 11/18/15 [History] Hydrochlorothiazide 12.5 mg PO QAM 11/18/15 [History] Lovastatin [Mevacor] 20 mg PO HS 11/18/15 [History] Metoprolol XL (24 HR) Succ [Toprol XL] 25 mg PO QAM 11/18/15 [History] Omeprazole [PriLOSEC] 20 mg PO QAM 11/18/15 [History] PredniSONE 5 mg PO QAM 11/18/15 [History] Warfarin [Coumadin] 2.5 mg PO SUMOTUWETHFR 11/18/15 [History] OxyCODONE Immed Rel [Roxicodone 5 MG] 5 - 10 mg PO Q6HR PRN #40 tablet 02/07/17 [Rx] Amlodipine Besylate 2.5 mg PO HS 09/29/16 [History] Warfarin [Coumadin] 5 mg PO SA 09/29/16 [History] Aspirin [Lo-Dose Aspirin EC] 81 mg PO DAILY 10/24/16 [History] Nitrofurantoin (BID) [Macrobid] 100 mg PO BID #4 capsule 10/25/16 [Rx] Allergies codeine Allergy (Verified 09/29/16 11:47) Dizziness albuterol Adverse Reaction (Verified 09/29/16 11:47) Blisters in mouth cephalexin [From Keflex] Adverse Reaction (Verified 09/29/16 11:47) blisters in mouth levofloxacin Adverse Reaction (Verified 09/29/16 11:47) patient unsure of reaction All Systems PM: A 10-system review of systems was performed and is negative for pertinent findings except as documented above in the HPI. - Constitutional Constitutional: as per HPI, malaise, no chills, no fever(s), no night sweats - EENT Eyes: as per HPI, no change in vision, no discharge, no pain, no photophobia Ears: as per HPI, no ear discharge, no ear pain, no tinnitus Nose, mouth and throat: as per HPI, no dysphagia, no nasal discharge, no neck pain, no sore throat - Cardiovascular Cardiovascular ROS IM: as per HPI, chest pain, dyspnea, dyspnea on exertion, irregular heart rhythm, lightheadedness, palpitations, no diaphoresis, no syncope - Respiratory Respiratory: as per HPI, no cough, no dyspnea, no wheezing, no excessive phlegm production - Gastrointestinal Gastrointestinal: as per HPI, no abdominal pain, no diarrhea, no hematemesis, no hematochezia, no melena, no nausea, no vomiting - Genitourinary Genitourinary: as per HPI, no change in urinary stream, no dysuria, no flank pain, no hematuria - Musculoskeletal Musculoskeletal ROS IM: as per HPI, no numbness, no tingling - Integumentary Integumentary IM: as per HPI, no rash, no unusual bruising - Neurological Neurological ROS: as per HPI, no confusion, no convulsions, no focal weakness, no numbness, no tingling, no tremor(s) - Psychiatric Psychiatric: as per HPI - Endocrine Endocrine IM: as per HPI - Hematologic/Lymphatic Hematologic/Lymphatic: as per HPI, no easy bruising - Allergic/Immunologic Allergic/Immunologic: as per HPI - Constitutional Vitals: Temp Pulse Resp BP Pulse Ox 97.8 F 80 16 118/90 96 10/23/16 22:15 10/23/16 23:14 10/23/16 23:14 10/23/16 23:14 10/23/16 23:14 General appearance: Present: mild distress, A&O X 3, answers questions appropriately - Head Head exam: Present: atraumatic, normocephalic - Eye Eye exam: Present: EOMI, PERRL, conjuntiva pink, sclera anicteric Pupils: Present: normal accommodation, PERRL - ENT ENT exam: Present: mucous membranes moist, normal oropharynx - Neck Neck exam general surgery: Present: full ROM, supple, trachea midline. Absent: lymphadenopathy - Respiratory Respiratory exam: Present: decreased breath sounds, CTAB. Absent: accessory muscle use, rales, rhonchi, wheezes - Cardiovascular Cardiovascular exam: Present: distant heart sounds, RRR, +S1, +S2. Absent: diastolic murmur, gallop, rubs, systolic murmur - GI/Abdominal GI/Abdominal exam: Present: normal bowel sounds, soft, no peritoneal signs. Absent: distended, tenderness - Extremities Exam Extremities exam: Present: full ROM, warm, radial pulses palpable and symetrical. Absent: calf tenderness, cyanotic, pedal edema - Neurological Exam Neurological exam: Present: alert, CN II-XII intact, oriented X3, no focal deficits. Absent: pronater drift, facial droop, speech deficit - Psychiatric Psychiatric exam: Present: normal affect, normal mood - Skin Skin exam: Present: dry, intact, warm Internal Med - H&P Results - Labs CBC & Chem 7: 10/23/16 18:30 10/25/16 05:49 Labs: Cardiac Enzymes 10/23/16 Range/Units 21:58 Troponin I 0.02 (0-0.03) ng/mL Vital Signs Temp Pulse Resp BP Pulse Ox 10/23/16 23:14 80 16 118/90 96 10/23/16 22:15 97.8 F 88 16 149/88 99 10/23/16 21:14 18 146/93 10/23/16 20:08 88 18 135/80 100 10/23/16 20:00 109 16 159/105 100 10/23/16 18:45 97.7 F 111 16 159/85 100 Intake and Output 10/23/16 10/23/16 10/23/16 07:59 15:59 23:59 Intake Total 0 / 0 Balance 0 / 0 Intake: Oral 0 / 0 Other: # Voids 1 Weight 56.4 kg Patient Weight 10/23/16 23:59 Weight 56.4 kg Short CBC 10/23/16 Range/Units 18:30 WBC 6.4 (4.3-11.1) K/mcL Hgb 10.0 L (11.5-15.4) g/dL Hct 32.8 L (35.3-44.9) % Plt Count 270 (140-400) K/mcL Neutrophils # 3.6 (1.6-8.9) K/mcL BMP 10/23/16 Range/Units 18:30 Sodium 140 (136-145) mEq/L Potassium 3.0 L (3.5-4.5) mEq/L Chloride 105 (98-109) mEq/L Carbon Dioxide 24 (19-29) mEq/L BUN 12 (7-20) mg/dL Creatinine 0.87 (0.57-1.11) mg/dL Glucose 94 (70-99) mg/dL Calcium 8.5 L (8.6-10.8) mg/dL Cardiac Enzymes 10/23/16 10/23/16 Range/Units 21:58 18:30 Troponin I 0.02 0.02 (0-0.03) ng/mL Urine 10/23/16 Range/Units 19:57 Urine Color Yellow (Yellow) Urine Clarity Clear (Clear) Urine pH 6.5 (5.0-8.0) pH Units Ur Specific [place] 1.010 (1.010-1.025) Urine Protein Negative (Neg-Trace) mg/dL Urine Glucose (UA) Normal (Normal) mg/dL Allergies Allergy/AdvReac Type Severity Reaction Status Date / Time codeine Allergy Dizziness Verified 09/29/16 11:47 albuterol AdvReac Blisters Verified 09/29/16 11:47 in mouth cephalexin [From Keflex] AdvReac blisters Verified 09/29/16 11:47 in mouth levofloxacin AdvReac patient Verified 09/29/16 11:47 unsure of reaction - Impressions Abnormal lab results Hgb 10.0 g/dL (11.5-15.4) L 10/23/16 18:30 Hct 32.8 % (35.3-44.9) L 10/23/16 18:30 MCV 82.6 fL (83.0-100.0) L 10/23/16 18:30 MCH 25.2 pg (28.0-33.3) L 10/23/16 18:30 MCHC 30.5 g/dL (31.6-35.5) L 10/23/16 18:30 RDW 15.2 % (11.5-14.5) H 10/23/16 18:30 PT 27.8 Seconds (9.4-12.1) H 10/23/16 18:30 Potassium 3.0 mEq/L (3.5-4.5) L 10/23/16 18:30 Calcium 8.5 mg/dL (8.6-10.8) L 10/23/16 18:30 Urine Nitrite Positive (Negative) A 10/23/16 19:57 Ur Squamous Epith Cells Moderate per lpf (None-Few) H 10/23/16 19:57 Urine Bacteria Many per hpf (None-Few) H 10/23/16 19:57 Ur Culture Indicated? YES (NO) A 10/23/16 19:57 Laboratory Results WBC 6.4 K/mcL (4.3-11.1) 10/23/16 18:30 RBC 3.97 M/mcL (3.82-4.97) 10/23/16 18:30 Hgb 10.0 g/dL (11.5-15.4) L 10/23/16 18:30 Hct 32.8 % (35.3-44.9) L 10/23/16 18:30 MCV 82.6 fL (83.0-100.0) L 10/23/16 18:30 MCH 25.2 pg (28.0-33.3) L 10/23/16 18:30 MCHC 30.5 g/dL (31.6-35.5) L 10/23/16 18:30 RDW 15.2 % (11.5-14.5) H 10/23/16 18:30 Plt Count 270 K/mcL (140-400) 10/23/16 18:30 MPV 10.6 fL (9.4-12.4) 10/23/16 18:30 Immature Gran % 0.2 % (0-4) 10/23/16 18:30 Seg Neutrophils % 56.3 % 10/23/16 18:30 Lymphocytes % 34.4 % 10/23/16 18:30 Monocytes % 8.6 % 10/23/16 18:30 Eosinophils % 0.2 % 10/23/16 18:30 Basophils % 0.3 % 10/23/16 18:30 Neutrophils # 3.6 K/mcL (1.6-8.9) 10/23/16 18:30 Lymphocytes # 2.2 K/mcL (0.6-4.6) 10/23/16 18:30 Monocytes # 0.6 K/mcL (0.0-1.3) 10/23/16 18:30 Eosinophils # 0.0 K/mcL (0.0-0.6) 10/23/16 18:30 Basophils # 0.0 K/mcL (0.0-0.2) 10/23/16 18:30 PT 27.8 Seconds (9.4-12.1) H 10/23/16 18:30 INR 2.5 10/23/16 18:30 APTT 31.0 Seconds (26.0-36.0) 10/23/16 18:30 Sodium 140 mEq/L (136-145) 10/23/16 18:30 Potassium 3.0 mEq/L (3.5-4.5) L 10/23/16 18:30 Chloride 105 mEq/L (98-109) 10/23/16 18:30 Carbon Dioxide 24 mEq/L (19-29) 10/23/16 18:30 BUN 12 mg/dL (7-20) 10/23/16 18:30 Creatinine 0.87 mg/dL (0.57-1.11) 10/23/16 18:30 Est GFR ( Amer) > 60 (> 60) 10/23/16 18:30 Est GFR (Non-Af Amer) > 60 (> 60) 10/23/16 18:30 BUN/Creatinine Ratio 14 (6-26) 10/23/16 18:30 Glucose 94 mg/dL (70-99) 10/23/16 18:30 Calculated Osmolality 290 (280-300) 10/23/16 18:30 Calcium 8.5 mg/dL (8.6-10.8) L 10/23/16 18:30 Magnesium 1.6 mg/dL (1.6-2.6) 10/23/16 18:30 Troponin I 0.02 ng/mL (0-0.03) 10/23/16 21:58 TSH 2.362 mcIU/mL (0.350-4.840) 10/23/16 18:30 Urine Color Yellow (Yellow) 10/23/16 19:57 Urine Clarity Clear (Clear) 10/23/16 19:57 Urine pH 6.5 pH Units (5.0-8.0) 10/23/16 19:57 Ur Specific [place] 1.010 (1.010-1.025) 10/23/16 19:57 Urine Protein Negative mg/dL (Neg-Trace) 10/23/16 19:57 Urine Glucose (UA) Normal mg/dL (Normal) 10/23/16 19:57 Urine Ketones Negative mg/dL (Negative) 10/23/16 19:57 Urine Blood Negative (Negative) 10/23/16 19:57 Urine Nitrite Positive (Negative) A 10/23/16 19:57 Urine Bilirubin Negative (Negative) 10/23/16 19:57 Urine Urobilinogen Normal mg/dL (Normal) 10/23/16 19:57 Ur Leukocyte Esterase Negative (Negative) 10/23/16 19:57 Urine Microscopic RBC 0-3 per hpf (0-3) 10/23/16 19:57 Urine Microscopic WBC 0-3 per hpf (0-3) 10/23/16 19:57 Ur Squamous Epith Cells Moderate per lpf (None-Few) H 10/23/16 19:57 Urine Bacteria Many per hpf (None-Few) H 10/23/16 19:57 Hyaline Casts None Seen per lpf (None-Few) 10/23/16 19:57 Ur Culture Indicated? YES (NO) A 10/23/16 19:57 Impressions Chest X-Ray 10/23/16 18:58 IMPRESSION: No acute cardiopulmonary disease. Hiatal hernia. D/ / 10/23/2016 19:30:52 Jamie Leonard MD / [email or web address] Interpreting Provider: Jamie Leonard MD - Attending Attestation Allergies codeine Allergy (Verified 09/29/16 11:47) Dizziness albuterol Adverse Reaction (Verified 09/29/16 11:47) Blisters in mouth cephalexin [From Keflex] Adverse Reaction (Verified 09/29/16 11:47) blisters in mouth levofloxacin Adverse Reaction (Verified 09/29/16 11:47) patient unsure of reaction Home Medications Medication Instructions Recorded Confirmed Type Alendronate Sodium [Fosamax] 70 mg PO 11/18/15 10/24/16 History Hydrochlorothiazide 12.5 mg PO [facility] 11/18/15 10/24/16 History Lovastatin [Mevacor] 20 mg PO 11/18/15 10/24/16 History Metoprolol XL (24 HR) Succ [Toprol 25 mg PO [facility] 11/18/15 10/24/16 History XL] Omeprazole [PriLOSEC] 20 mg PO [facility] 11/18/15 10/24/16 History PredniSONE 5 mg PO [facility] 11/18/15 10/24/16 History Warfarin [Coumadin] 2.5 mg PO SUMOTUWETHFR 11/18/15 10/24/16 History Amlodipine Besylate 2.5 mg PO 09/29/16 10/24/16 History Warfarin [Coumadin] 5 mg PO SA 09/29/16 10/24/16 History Aspirin [Lo-Dose Aspirin EC] 81 mg PO DAILY 10/24/16 10/24/16 History Prescriptions Medication Instructions Recorded Type Nitrofurantoin (BID) [Macrobid] 100 mg PO BID #4 capsule 10/25/16 Rx Medications Discontinued Medications Acetaminophen (Tylenol) 650 mg PO Q6HR PRN PRN Reason: Mild Pain (1-3) Stop: 04/24/17 21:35 Aspirin (Aspirin) 81 mg PO DAILY [facility] Stop: 04/25/17 09:01 Last Admin: 10/25/16 08:18 Dose: 81 mg Diltiazem HCl (Cardizem) 10 mg IVP ONCE ONE Stop: 10/23/16 19:30 Last Admin: 10/23/16 20:03 Dose: 10 mg Docusate Sodium (Colace) 100 mg PO BID [facility] Stop: 04/25/17 09:01 Last Admin: 10/25/16 08:18 Dose: 100 mg Sodium Chloride (0.9 % Sodium Chloride) 1,000 mls @ 125 mls/hr IV CONT [facility] Stop: 04/24/17 19:31 Last Admin: 10/23/16 20:02 Dose: 125 mls/hr Diltiazem HCl 125 mg/ Dextrose 125 mls @ 5 mls/hr IVC .Q24H [facility] PRN Reason: 5 MG/HR Stop: 04/24/17 19:31 Last Admin: 10/23/16 20:04 Dose: 5 mg/hr, 5 mls/hr Magnesium Sulfate 1 gm/ (Dextrose) 102 mls @ 100 mls/hr IVPB ONCE ONE Stop: 10/23/16 22:35 Last Admin: 10/23/16 22:58 Dose: 100 mls/hr Sodium Chloride (0.9 % Sodium Chloride) 1,000 mls @ 75 mls/hr IV CONT [facility] Stop: 04/24/17 21:38 Last Admin: 10/24/16 21:47 Dose: 75 mls/hr Diltiazem HCl 125 mg/ Dextrose 125 mls @ 5 mls/hr IVC .Q24H [facility]; 5 MG/HR PRN Reason: Protocol Stop: 04/24/17 19:31 Last Titration: 10/24/16 05:50 Dose: 2.5 mg/hr, 2.5 mls/hr Potassium Chloride 40 meq/ (Lidocaine 2 ml/ Dextrose) 522 mls @ 130.5 mls/hr IVPB ONCE STA Stop: 10/24/16 03:19 Last Admin: 10/24/16 00:52 Dose: 130.5 mls/hr Aztreonam 1,000 mg/ Dextrose 100 mls @ 200 mls/hr IVPB Q8HR [facility] Stop: 04/25/17 08:01 Last Admin: 10/25/16 08:19 Dose: 200 mls/hr Potassium Chloride 20 meq/ (Lidocaine 2 ml/ Dextrose) 262 mls @ 131 mls/hr IVPB ONCE ONE Stop: 10/24/16 08:17 Last Admin: 10/24/16 08:24 Dose: Ketorolac Tromethamine (Toradol) 15 mg IVP ONCE ONE Stop: 10/23/16 21:35 Last Admin: 10/23/16 22:59 Dose: Not Given Non-Admin Reason: Patient Refused Metoprolol Succinate (Toprol Xl) 25 mg PO DAILY [facility] Stop: 04/25/17 10:46 Last Admin: 10/25/16 08:18 Dose: 25 mg Metoprolol Tartrate (Lopressor) 5 mg IVP Q6HR PRN PRN Reason: SEE COMMENTS Stop: 04/24/17 21:35 Metoprolol Tartrate (Lopressor) 12.5 mg PO BID [facility] Stop: 04/25/17 09:01 Last Admin: 10/24/16 08:40 Dose: 12.5 mg Morphine Sulfate (Morphine Sulfate) 2 mg IVP Q4HR PRN PRN Reason: Severe Pain (7-10) Stop: 04/24/17 21:35 Naloxone HCl (Narcan) 0.4 mg IVP Q2MIN PRN PRN Reason: Opioid Reversal Stop: 04/24/17 21:35 Omeprazole (Prilosec) 20 mg PO DAILY@0630 [facility] PRN Reason: Protocol Stop: 04/25/17 06:31 Last Admin: 10/25/16 05:27 Dose: 20 mg Ondansetron HCl (Zofran) 4 mg IVP Q8HR PRN PRN Reason: Nausea And Vomiting Stop: 04/24/17 21:35 Oxycodone HCl (Roxicodone) 5 mg PO Q6HR PRN PRN Reason: Moderate Pain (4-6) Stop: 04/24/17 21:35 Pantoprazole Sodium (Protonix) 40 mg IVP NOW STA Stop: 10/23/16 21:35 Last Admin: 10/23/16 22:58 Dose: 40 mg Potassium Chloride (Potassium Chloride) 40 meq GTUBE ONCE STA Stop: 10/23/16 23:21 Last Admin: 10/24/16 05:54 Dose: 40 meq Potassium Chloride (Potassium Chloride) 40 meq GTUBE ONCE ONE Stop: 10/24/16 06:19 Last Admin: 10/24/16 08:05 Dose: [facility] Stop: 04/25/17 09:01 Last Admin: 10/25/16 08:18 Dose: 5 mg Warfarin Sodium (Coumadin) 5 mg PO Q48H [facility] Stop: 04/24/17 23:31 Warfarin Sodium (Coumadin Perpt) 1 each PO DAILY@1800 PRN PRN Reason: SEE COMMENTS Stop: 04/25/17 18:01 Warfarin Sodium (Coumadin) 2.5 mg PO Q48H [facility] Stop: 04/24/17 23:31 Warfarin Sodium (Coumadin) 5 mg PO QD@1800 [facility] Stop: 04/25/17 18:01 Warfarin Sodium (Coumadin) 4 mg PO QD@1800 [facility] Stop: 04/25/17 18:01 Warfarin Sodium (Coumadin) 4 mg PO QD@1800 [facility] Stop: 04/25/17 18:01 Last Admin: 10/24/16 18:53 Dose: 4 mg Warfarin Sodium (Coumadin) 5 mg PO 1800 ONE Stop: 10/25/16 18:01 Microbiology Results 10/23/16 19:57 Urine,Clean Catch Urine Culture - Final Escherichia coli Nursing Notes 10/25/16 14:14 Medicare IM by Marissa Juarez A Important Message from Medicare reviewed with Juan Luis Sabillon and patient verbalized understanding. Original notice provided to patient and signed copy placed on chart. Initialized on 10/25/16 14:14 - END OF NOTE 10/23/16 21:15 Transport Report by Tessa Petersen Date: 10/23/16 Transport Method: Ambulatory codeine Allergy (Verified 09/29/16 11:47) Dizziness albuterol Adverse Reaction (Verified 09/29/16 11:47) Blisters in mouth cephalexin [From Keflex] Adverse Reaction (Verified 09/29/16 11:47) blisters in mouth levofloxacin Adverse Reaction (Verified 09/29/16 11:47) patient unsure of reaction Resuscitation Status 10/23/16 18:58 ECG 12 lead ECG [ECG] Stat Mode Of Transportation: Ambulatory Reason For Exam: palpatations Exam Performed At:: [facility] Oxygen: Mental Status: Fall Risk: Isolation: Nurse Required for Transport: No ___ Yes Limb Restrictions: No ___ Yes Behavioral issue/Risk for Elopement: No ___ Yes Telemetry Room Notification: Destination: MRI XRAY STRESS ULTRASOUND CT DIALYSIS ENDO OTHER: Depart Time: Nurse: Transporter: Arrive Time: Received by: ___ Return Time: Nurse: Transporter: ] Initialized on 10/23/16 21:15 - END OF NOTE Orders 10/23/16 18:30 Activated Partial Thrombo Time [COAG] Stat Comment: Specimen: Send someone from the department to collect Basic Metabolic Panel Stat Comment: Specimen: Send someone from the department to collect Complete Blood Count [HEME] Stat Comment: Specimen: Send someone from the department to collect Magnesium Stat Prothrombin Time INR [COAG] Stat Comment: Specimen: Send someone from the department to collect Thyroid Stimulating Hormone Stat Comment: Specimen: Send someone from the department to collect Troponin I Stat Comment: Specimen: Send someone from the department to collect 10/23/16 18:58 12 lead ECG assessment [RC] NOW Cardiac monitoring [RC] .ONCE Saline lock [RC] .ONCE Supplemental oxygen titration [RC] .ONCE Physician Instructions: Vital Signs Assessment [RC] PROTOCOL XR chest 1V portable [XR] Stat Mode Of Transportation: Ambulatory Reason For Exam: palpitations Exam Performed At:: [facility] ECG 12 lead ECG [ECG] Stat Mode Of Transportation: Ambulatory Reason For Exam: palpatations Exam Performed At:: [facility] 10/23/16 19:29 Diltiazem [Cardizem] 10 mg IVP ONCE ONE 10/23/16 19:30 0.9 % Sodium Chloride 1,000 ml IV CONT D5% in Water [Dextrose 5%] 100 ml Diltiazem [Cardizem] 125 mg IVC 5 mg/hr 10/23/16 19:57 Culture,Urine [] Stat CARRIE Source: [facility] Specimen Description: Urinalysis Reflex Cult & Micro [URIN] Stat Comment: Specimen: Has been collected 10/23/16 20:[address] Stat Comment: Reason for Visit: afib rvr 10/23/16 21:34 Peripheral IV [RC] CONT Placement to Observation Routine Physician Instructions: Reason for Visit: Rapid, irregular heart beats Is VTE Prophylaxis Indicated?: Yes Vital Signs Assessment [RC] Q4H Acetaminophen [Tylenol] 650 mg PO Q6HR PRN Ketorolac [Toradol] 15 mg IVP ONCE ONE Magnesium Sulfate 1 gm D5% in Water [Dextrose 5%] 100 ml IVPB ONCE Metoprolol [Lopressor] 5 mg IVP Q6HR PRN Morphine [Morphine Sulfate] 2 mg IVP Q4HR PRN Naloxone [Narcan] 0.4 mg IVP Q2MIN PRN Ondansetron [Zofran] 4 mg IVP Q8HR PRN OxyCODONE Immed Rel [Roxicodone] 5 mg PO Q6HR PRN Pantoprazole [Protonix] 40 mg IVP NOW STA 10/23/16 21:35 Bed rest [RC] .CONT Physician Instructions: Bed rest w/bedside commode [RC] .PRN Cardiac Monitoring Med/Surg [RC] .CONT Telemetry Reason: New Arrhythmia Continuous pulse oximetry [RC] CONT Comment: Measure intake and output [RC] QSHIFT Measure weight [RC] DAILY 10/23/16 21:36 RT has an order or consult [RC] NOW 10/23/16 21:37 Oxygen via nasal cannula Nasal Cannula 2 lpm Comment: Titrate O2 to main O2 sat greater than: 92% 10/23/16 21:41 0.9 % Sodium Chloride 1,000 ml IV CONT 10/23/16 21:42 D5% in Water [Dextrose 5%] 100 ml Diltiazem [Cardizem] 125 mg IVC 5 mg/hr HR Less Than ____: 100 10/23/16 21:45 Up with Assist Daily Comment: Physician Instructions: 10/23/16 21:58 Troponin I Q6H Comment: Specimen: Send someone from the department to collect 10/23/16 23:20 Potassium Chloride Elixir [Potassium Chloride] 40 meq GTUBE ONCE STA Potassium Chloride [KCl] 40 meq Lidocaine 1% [Xylocaine] 2 ml D5% in Water [ Dextrose 5%] 500 ml IVPB ONCE 10/23/16 23:30 Warfarin [Coumadin] 2.5 mg PO Q48H Warfarin [Coumadin] 5 mg PO Q48H 10/23/16 Dinner Cardiac Diet Diet Modifications: 10/24/16 03:31 Activated Partial Thrombo Time [COAG] AM 0400 Comment: Specimen: Send someone from the department to collect B-Type Natriuretic Peptide AM 0400 Comment: Specimen: Send someone from the department to collect Comprehensive Metabolic Panel AM 0400 Comment: Specimen: Send someone from the department to collect Ionized Calcium AM 0400 Comment: Specimen: Send someone from the department to collect Iron Profile AM 0400 Comment: Specimen: Send someone from the department to collect Lipid Panel AM 0400 Comment: Specimen: Send someone from the department to collect Magnesium AM 0400 Comment: Specimen: Send someone from the department to collect Phosphorous AM 0400 Comment: Specimen: Send someone from the department to collect Prothrombin Time INR [COAG] AM 0400 Comment: Specimen: Send someone from the department to collect Thyroxine (T4) Free AM 0400 Comment: Specimen: Send someone from the department to collect Triiodothyronine (T3) Free AM 0400 Comment: Specimen: Send someone from the department to collect Troponin I Q6H Comment: Specimen: Send someone from the department to collect Venous Blood Gas AM 0400 Comment: Specimen: Send someone from the department to collect 10/24/16 06:18 Potassium Chloride Elixir [Potassium Chloride] 40 meq GTUBE ONCE ONE Potassium Chloride [KCl] 20 meq Lidocaine 1% [Xylocaine] 2 ml D5% in Water [ Dextrose 5%] 250 ml IVPB ONCE 10/24/16 06:30 Omeprazole [PriLOSEC] 20 mg PO DAILY@0630 10/24/16 08:00 Consult to Cardiology [CONS] Routine Comment: Consulting Provider: Cardiology Avis Reason for Consult: Long-standing paroxysmal atrial fibrillation with history of being refractory/intolerant of pharmacologic treatments presents with atrial fibrillation RVR and acute chest pain. Please evaluate and advise. Time Notified: 23:17 Call Completed: No Aztreonam [Azactam] 1,000 mg D5% in Water (Mini-Bag+) [Dextrose 5% (Minibag+) 100 ML] 100 ml IVPB Q8HR 10/24/16 09:00 Aspirin 81 mg PO DAILY Docusate [Colace] 100 mg PO BID Metoprolol [Lopressor] 12.5 mg PO BID PredniSONE 5 mg PO QAM 10/24/16 09:31 Troponin I Q6H Comment: Specimen: Send someone from the department to collect 10/24/16 10:45 Metoprolol XL (24 HR) Succ [Toprol XL] 25 mg PO DAILY 10/24/16 18:00 Warfarin [Coumadin] 4 mg PO QD@1800 Warfarin [Coumadin] 4 mg PO QD@1800 Warfarin [Coumadin] 5 mg PO QD@1800 Warfarin perPT [Coumadin perPT] 1 each PO DAILY@1800 PRN 10/24/16 21:41 EV echocardiogram Stat Mode Of Transportation: Ambulatory Reason For Exam: afib rvr Exam Performed At:: [facility] 10/24/16 21:45 Up with Assist Daily Comment: Physician Instructions: 10/25/16 05:49 Activated Partial Thrombo Time [COAG] AM 0400 Comment: Specimen: Send someone from the department to collect Basic Metabolic Panel AM 0400 Comment: Specimen: Send someone from the department to collect Prothrombin Time INR [COAG] AM 0400 Comment: Specimen: Send someone from the department to collect 10/25/16 11:45 Admit as Inpatient Routine Estimated Total Length of Stay (Days): 2 Plans for Post Hospital Care: Home Inpatient Status Required: Unresolved acute problem Explain each choice below Explain Concerns: A.FIB WITH RVR Potential Adverse Outcome: Respiratory Failure Is VTE Prophylaxis Indicated?: Yes 10/25/16 11:49 Discharge Order [DISCHARGE] Routine Comment: 10/25/16 18:00 Warfarin [Coumadin] 5 mg PO 1800 ONE Vital Signs Temp Pulse Resp BP Pulse Ox 10/25/16 08:25 98 10/25/16 07:18 98.2 F 86 16 143/90 98 10/25/16 06:14 147/91 10/25/16 05:14 98.3 F 81 18 152/101 97 10/25/16 00:19 97.6 F 91 16 135/90 98 10/24/16 20:02 97.3 F L 90 16 131/86 97 10/24/16 15:40 97.9 F 85 15 128/91 98 10/24/16 11:14 97.9 F 88 15 133/86 98 10/24/16 08:43 100 10/24/16 08:41 100 10/24/16 07:07 98.8 F 65 15 132/86 97 10/24/16 04:42 98.4 F 69 16 130/69 98 10/24/16 00:04 98.1 F 78 16 132/86 99 10/23/16 23:14 80 16 118/90 96 10/23/16 23:00 99 10/23/16 22:15 97.8 F 88 16 149/88 99 10/23/16 21:14 18 146/93 10/23/16 20:08 88 18 135/80 100 10/23/16 20:00 109 16 159/105 100 10/23/16 18:45 97.7 F 111 16 159/85 100 Laboratory Results 10/23/16 10/23/16 10/23/16 Range/Units 18:30 18:30 18:30 WBC 6.4 (4.3-11.1) K/mcL RBC 3.97 (3.82-4.97) M/mcL Hgb 10.0 L (11.5-15.4) g/dL Hct 32.8 L (35.3-44.9) % MCV 82.6 L (83.0-100.0) fL MCH 25.2 L (28.0-33.3) pg MCHC 30.5 L (31.6-35.5) g/dL RDW 15.2 H (11.5-14.5) % Plt Count 270 (140-400) K/mcL MPV 10.6 (9.4-12.4) fL Immature Gran % 0.2 (0-4) % Seg Neutrophils % 56.3 % Lymphocytes % 34.4 % Monocytes % 8.6 % Eosinophils % 0.2 % Basophils % 0.3 % Neutrophils # 3.6 (1.6-8.9) K/mcL Lymphocytes # 2.2 (0.6-4.6) K/mcL Monocytes # 0.6 (0.0-1.3) K/mcL Eosinophils # 0.0 (0.0-0.6) K/mcL Basophils # 0.0 (0.0-0.2) K/mcL PT 27.8 H (9.4-12.1) Seconds INR 2.5 APTT 31.0 (26.0-36.0) Seconds VBG pH (7.32-7.42) pH Units VBG pCO2 (41-51) mmHg VBG pO2 (25-40) mmHg VBG HCO3 (21-27) mEq/L Sodium 140 (136-145) mEq/L Potassium 3.0 L (3.5-4.5) mEq/L Chloride 105 (98-109) mEq/L Carbon Dioxide 24 (19-29) mEq/L BUN 12 (7-20) mg/dL Creatinine 0.87 (0.57-1.11) mg/dL Est GFR ( Amer) > 60 (> 60) Est GFR (Non-Af Amer) > 60 (> 60) BUN/Creatinine Ratio 14 (6-26) Glucose 94 (70-99) mg/dL Calculated Osmolality 290 (280-300) Calcium 8.5 L (8.6-10.8) mg/dL Ionized Calcium (1.15-1.35) mmol/L Phosphorus (2.3-4.7) mg/dL Magnesium 1.6 (1.6-2.6) mg/dL Iron (50-170) mcg/dL % Saturation (15-50) % Transferrin (180-382) mg/dL Total Bilirubin (0.2-1.2) mg/dL AST (5-34) Units/L ALT (0-55) Units/L Alkaline Phosphatase (38-126) Units/L Troponin I (0-0.03) ng/mL B-Natriuretic Peptide (0-100) pg/mL Serum Total Protein (6.0-8.3) g/dL Albumin (3.5-5.0) g/dL Globulin (2.4-3.5) g/dL Albumin/Globulin Ratio (1.1-2.2) Triglycerides (< 150) mg/dL Cholesterol (< 200) mg/dL LDL Cholesterol, Calc (0-99) mg/dL VLDL Cholesterol, Calc (< 31) mg/dL HDL Cholesterol (40-59) mg/dL Cholesterol/HDL Ratio (0-4.9) TSH 2.362 (0.350-4.840) mcIU/mL Free T4 (0.70-1.48) ng/dl Free T3 (1.71-3.71) pg/mL Urine Color (Yellow) Urine Clarity (Clear) Urine pH (5.0-8.0) pH Units Ur Specific [place] (1.010-1.025) Urine Protein (Neg-Trace) mg/dL Urine Glucose (UA) (Normal) mg/dL Urine Ketones (Negative) mg/dL Urine Blood (Negative) Urine Nitrite (Negative) Urine Bilirubin (Negative) Urine Urobilinogen (Normal) mg/dL Ur Leukocyte Esterase (Negative) Urine Microscopic RBC (0-3) per hpf Urine Microscopic WBC (0-3) per hpf Ur Squamous Epith Cells (None-Few) per lpf Urine Bacteria (None-Few) per hpf Hyaline Casts (None-Few) per lpf Ur Culture Indicated? (NO) 10/23/16 10/23/16 10/23/16 Range/Units 18:30 19:57 21:58 WBC (4.3-11.1) K/mcL RBC (3.82-4.97) M/mcL Hgb (11.5-15.4) g/dL Hct (35.3-44.9) % MCV (83.0-100.0) fL MCH (28.0-33.3) pg MCHC (31.6-35.5) g/dL RDW (11.5-14.5) % Plt Count (140-400) K/mcL MPV (9.4-12.4) fL Immature Gran % (0-4) % Seg Neutrophils % % Lymphocytes % % Monocytes % % Eosinophils % % Basophils % % Neutrophils # (1.6-8.9) K/mcL Lymphocytes # (0.6-4.6) K/mcL Monocytes # (0.0-1.3) K/mcL Eosinophils # (0.0-0.6) K/mcL Basophils # (0.0-0.2) K/mcL PT (9.4-12.1) Seconds INR APTT (26.0-36.0) Seconds VBG pH (7.32-7.42) pH Units VBG pCO2 (41-51) mmHg VBG pO2 (25-40) mmHg VBG HCO3 (21-27) mEq/L Sodium (136-145) mEq/L Potassium (3.5-4.5) mEq/L Chloride (98-109) mEq/L Carbon Dioxide (19-29) mEq/L BUN (7-20) mg/dL Creatinine (0.57-1.11) mg/dL Est GFR ( Amer) (> 60) Est GFR (Non-Af Amer) (> 60) BUN/Creatinine Ratio (6-26) Glucose (70-99) mg/dL Calculated Osmolality (280-300) Calcium (8.6-10.8) mg/dL Ionized Calcium (1.15-1.35) mmol/L Phosphorus (2.3-4.7) mg/dL Magnesium (1.6-2.6) mg/dL Iron (50-170) mcg/dL % Saturation (15-50) % Transferrin (180-382) mg/dL Total Bilirubin (0.2-1.2) mg/dL AST (5-34) Units/L ALT (0-55) Units/L Alkaline Phosphatase (38-126) Units/L Troponin I 0.02 0.02 (0-0.03) ng/mL B-Natriuretic Peptide (0-100) pg/mL Serum Total Protein (6.0-8.3) g/dL Albumin (3.5-5.0) g/dL Globulin (2.4-3.5) g/dL Albumin/Globulin Ratio (1.1-2.2) Triglycerides (< 150) mg/dL Cholesterol (< 200) mg/dL LDL Cholesterol, Calc (0-99) mg/dL VLDL Cholesterol, Calc (< 31) mg/dL HDL Cholesterol (40-59) mg/dL Cholesterol/HDL Ratio (0-4.9) TSH (0.350-4.840) mcIU/mL Free T4 (0.70-1.48) ng/dl Free T3 (1.71-3.71) pg/mL Urine Color Yellow (Yellow) Urine Clarity Clear (Clear) Urine pH 6.5 (5.0-8.0) pH Units Ur Specific [place] 1.010 (1.010-1.025) Urine Protein Negative (Neg-Trace) mg/dL Urine Glucose (UA) Normal (Normal) mg/dL Urine Ketones Negative (Negative) mg/dL Urine Blood Negative (Negative) Urine Nitrite Positive A (Negative) Urine Bilirubin Negative (Negative) Urine Urobilinogen Normal (Normal) mg/dL Ur Leukocyte Esterase Negative (Negative) Urine Microscopic RBC 0-3 (0-3) per hpf Urine Microscopic WBC 0-3 (0-3) per hpf Ur Squamous Epith Cells Moderate H (None-Few) per lpf Urine Bacteria Many H (None-Few) per hpf Hyaline Casts None Seen (None-Few) per lpf Ur Culture Indicated? YES A (NO) 10/24/16 10/24/16 10/24/16 Range/Units 03:31 03:31 03:31 WBC (4.3-11.1) K/mcL RBC (3.82-4.97) M/mcL Hgb (11.5-15.4) g/dL Hct (35.3-44.9) % MCV (83.0-100.0) fL MCH (28.0-33.3) pg MCHC (31.6-35.5) g/dL RDW (11.5-14.5) % Plt Count (140-400) K/mcL MPV (9.4-12.4) fL Immature Gran % (0-4) % Seg Neutrophils % % Lymphocytes % % Monocytes % % Eosinophils % % Basophils % % Neutrophils # (1.6-8.9) K/mcL Lymphocytes # (0.6-4.6) K/mcL Monocytes # (0.0-1.3) K/mcL Eosinophils # (0.0-0.6) K/mcL Basophils # (0.0-0.2) K/mcL PT 25.4 H (9.4-12.1) Seconds INR 2.3 APTT 30.1 (26.0-36.0) Seconds VBG pH (7.32-7.42) pH Units VBG pCO2 (41-51) mmHg VBG pO2 (25-40) mmHg VBG HCO3 (21-27) mEq/L Sodium 143 (136-145) mEq/L Potassium 3.4 L (3.5-4.5) mEq/L Chloride 110 H (98-109) mEq/L Carbon Dioxide 25 (19-29) mEq/L BUN 8 (7-20) mg/dL Creatinine 0.80 (0.57-1.11) mg/dL Est GFR ( Amer) > 60 (> 60) Est GFR (Non-Af Amer) > 60 (> 60) BUN/Creatinine Ratio 10 (6-26) Glucose 97 (70-99) mg/dL Calculated Osmolality 294 (280-300) Calcium 8.0 L (8.6-10.8) mg/dL Ionized Calcium (1.15-1.35) mmol/L Phosphorus 3.3 (2.3-4.7) mg/dL Magnesium 2.0 (1.6-2.6) mg/dL Iron (50-170) mcg/dL % Saturation (15-50) % Transferrin (180-382) mg/dL Total Bilirubin 0.7 (0.2-1.2) mg/dL AST 20 (5-34) Units/L ALT 13 (0-55) Units/L Alkaline Phosphatase 56 (38-126) Units/L Troponin I 0.02 (0-0.03) ng/mL B-Natriuretic Peptide (0-100) pg/mL Serum Total Protein 5.5 L (6.0-8.3) g/dL Albumin 2.7 L (3.5-5.0) g/dL Globulin 2.8 (2.4-3.5) g/dL Albumin/Globulin Ratio 1.0 L (1.1-2.2) Triglycerides 85 (< 150) mg/dL Cholesterol 132 (< 200) mg/dL LDL Cholesterol, Calc 66 (0-99) mg/dL VLDL Cholesterol, Calc 17 (< 31) mg/dL HDL Cholesterol 49 (40-59) mg/dL Cholesterol/HDL Ratio 2.7 (0-4.9) TSH (0.350-4.840) mcIU/mL Free T4 (0.70-1.48) ng/dl Free T3 (1.71-3.71) pg/mL Urine Color (Yellow) Urine Clarity (Clear) Urine pH (5.0-8.0) pH Units Ur Specific [place] (1.010-1.025) Urine Protein (Neg-Trace) mg/dL Urine Glucose (UA) (Normal) mg/dL Urine Ketones (Negative) mg/dL Urine Blood (Negative) Urine Nitrite (Negative) Urine Bilirubin (Negative) Urine Urobilinogen (Normal) mg/dL Ur Leukocyte Esterase (Negative) Urine Microscopic RBC (0-3) per hpf Urine Microscopic WBC (0-3) per hpf Ur Squamous Epith Cells (None-Few) per lpf Urine Bacteria (None-Few) per hpf Hyaline Casts (None-Few) per lpf Ur Culture Indicated? (NO) 10/24/16 10/24/16 10/24/16 Range/Units 03:31 03:31 03:31 WBC (4.3-11.1) K/mcL RBC (3.82-4.97) M/mcL Hgb (11.5-15.4) g/dL Hct (35.3-44.9) % MCV (83.0-100.0) fL MCH (28.0-33.3) pg MCHC (31.6-35.5) g/dL RDW (11.5-14.5) % Plt Count (140-400) K/mcL MPV (9.4-12.4) fL Immature Gran % (0-4) % Seg Neutrophils % % Lymphocytes % % Monocytes % % Eosinophils % % Basophils % % Neutrophils # (1.6-8.9) K/mcL Lymphocytes # (0.6-4.6) K/mcL Monocytes # (0.0-1.3) K/mcL Eosinophils # (0.0-0.6) K/mcL Basophils # (0.0-0.2) K/mcL PT (9.4-12.1) Seconds INR APTT (26.0-36.0) Seconds VBG pH 7.43 H (7.32-7.42) pH Units VBG pCO2 47 (41-51) mmHg VBG pO2 71 H (25-40) mmHg VBG HCO3 31.2 H (21-27) mEq/L Sodium (136-145) mEq/L Potassium (3.5-4.5) mEq/L Chloride (98-109) mEq/L Carbon Dioxide (19-29) mEq/L BUN (7-20) mg/dL Creatinine (0.57-1.11) mg/dL Est GFR ( Amer) (> 60) Est GFR (Non-Af Amer) (> 60) BUN/Creatinine Ratio (6-26) Glucose (70-99) mg/dL Calculated Osmolality (280-300) Calcium (8.6-10.8) mg/dL Ionized Calcium 1.18 (1.15-1.35) mmol/L Phosphorus (2.3-4.7) mg/dL Magnesium (1.6-2.6) mg/dL Iron 24 L (50-170) mcg/dL % Saturation 8 L (15-50) % Transferrin 206 (180-382) mg/dL Total Bilirubin (0.2-1.2) mg/dL AST (5-34) Units/L ALT (0-55) Units/L Alkaline Phosphatase (38-126) Units/L Troponin I (0-0.03) ng/mL B-Natriuretic Peptide 193 H (0-100) pg/mL Serum Total Protein (6.0-8.3) g/dL Albumin (3.5-5.0) g/dL Globulin (2.4-3.5) g/dL Albumin/Globulin Ratio (1.1-2.2) Triglycerides (< 150) mg/dL Cholesterol (< 200) mg/dL LDL Cholesterol, Calc (0-99) mg/dL VLDL Cholesterol, Calc (< 31) mg/dL HDL Cholesterol (40-59) mg/dL Cholesterol/HDL Ratio (0-4.9) TSH (0.350-4.840) mcIU/mL Free T4 1.14 (0.70-1.48) ng/dl Free T3 2.51 (1.71-3.71) pg/mL Urine Color (Yellow) Urine Clarity (Clear) Urine pH (5.0-8.0) pH Units Ur Specific [place] (1.010-1.025) Urine Protein (Neg-Trace) mg/dL Urine Glucose (UA) (Normal) mg/dL Urine Ketones (Negative) mg/dL Urine Blood (Negative) Urine Nitrite (Negative) Urine Bilirubin (Negative) Urine Urobilinogen (Normal) mg/dL Ur Leukocyte Esterase (Negative) Urine Microscopic RBC (0-3) per hpf Urine Microscopic WBC (0-3) per hpf Ur Squamous Epith Cells (None-Few) per lpf Urine Bacteria (None-Few) per hpf Hyaline Casts (None-Few) per lpf Ur Culture Indicated? (NO) 10/24/16 10/25/16 10/25/16 Range/Units 09:31 05:49 05:49 WBC (4.3-11.1) K/mcL RBC (3.82-4.97) M/mcL Hgb (11.5-15.4) g/dL Hct (35.3-44.9) % MCV (83.0-100.0) fL MCH (28.0-33.3) pg MCHC (31.6-35.5) g/dL RDW (11.5-14.5) % Plt Count (140-400) K/mcL MPV (9.4-12.4) fL Immature Gran % (0-4) % Seg Neutrophils % % Lymphocytes % % Monocytes % % Eosinophils % % Basophils % % Neutrophils # (1.6-8.9) K/mcL Lymphocytes # (0.6-4.6) K/mcL Monocytes # (0.0-1.3) K/mcL Eosinophils # (0.0-0.6) K/mcL Basophils # (0.0-0.2) K/mcL PT 21.9 H (9.4-12.1) Seconds INR 2.0 APTT 28.1 (26.0-36.0) Seconds VBG pH (7.32-7.42) pH Units VBG pCO2 (41-51) mmHg VBG pO2 (25-40) mmHg VBG HCO3 (21-27) mEq/L Sodium 143 (136-145) mEq/L Potassium 3.7 (3.5-4.5) mEq/L Chloride 112 H (98-109) mEq/L Carbon Dioxide 23 (19-29) mEq/L BUN 8 (7-20) mg/dL Creatinine 0.78 (0.57-1.11) mg/dL Est GFR ( Amer) > 60 (> 60) Est GFR (Non-Af Amer) > 60 (> 60) BUN/Creatinine Ratio 10 (6-26) Glucose 81 (70-99) mg/dL Calculated Osmolality 293 (280-300) Calcium 7.9 L (8.6-10.8) mg/dL Ionized Calcium (1.15-1.35) mmol/L Phosphorus (2.3-4.7) mg/dL Magnesium (1.6-2.6) mg/dL Iron (50-170) mcg/dL % Saturation (15-50) % Transferrin (180-382) mg/dL Total Bilirubin (0.2-1.2) mg/dL AST (5-34) Units/L ALT (0-55) Units/L Alkaline Phosphatase (38-126) Units/L Troponin I 0.01 (0-0.03) ng/mL B-Natriuretic Peptide (0-100) pg/mL Serum Total Protein (6.0-8.3) g/dL Albumin (3.5-5.0) g/dL Globulin (2.4-3.5) g/dL Albumin/Globulin Ratio (1.1-2.2) Triglycerides (< 150) mg/dL Cholesterol (< 200) mg/dL LDL Cholesterol, Calc (0-99) mg/dL VLDL Cholesterol, Calc (< 31) mg/dL HDL Cholesterol (40-59) mg/dL Cholesterol/HDL Ratio (0-4.9) TSH (0.350-4.840) mcIU/mL Free T4 (0.70-1.48) ng/dl Free T3 (1.71-3.71) pg/mL Urine Color (Yellow) Urine Clarity (Clear) Urine pH (5.0-8.0) pH Units Ur Specific [place] (1.010-1.025) Urine Protein (Neg-Trace) mg/dL Urine Glucose (UA) (Normal) mg/dL Urine Ketones (Negative) mg/dL Urine Blood (Negative) Urine Nitrite (Negative) Urine Bilirubin (Negative) Urine Urobilinogen (Normal) mg/dL Ur Leukocyte Esterase (Negative) Urine Microscopic RBC (0-3) per hpf Urine Microscopic WBC (0-3) per hpf Ur Squamous Epith Cells (None-Few) per lpf Urine Bacteria (None-Few) per hpf Hyaline Casts (None-Few) per lpf Ur Culture Indicated? (NO) Assessments/Treatments 12 lead ECG assessment Start: 10/23/16 18: 45 Freq: Status: Complete Document 10/23/16 18:53 JBF (Rec: 10/23/16 18:55 JBF [id number]) EKG Time EKG Completed 18:56 EKG performed by Malou EKG shown to and signed by Dr. Pemberton Ambulation assistance Start: 10/24/16 03: 55 Freq: Status: Complete Document 10/25/16 02:22 Farhan (Rec: 10/25/16 02:22 Farhan [id number]) Cardiac monitoring Start: 10/23/16 18: 58 Freq: .ONCE Status: Discharge Document 10/24/16 12:18 [id number] (Rec: 10/24/16 12:19 [id number]) Cardiac Monitoring Monitor Number HW Strip placed in Chart Yes Alarms/Limits HR Alarm 110/45 Heart Rate 82 EKG Method Telemetry Rhythm Atrial Fibrillation AK Interval 0.16 QRS Interval 0.07 QT Interval 0.39 Document 10/24/16 20:00 Farhan (Rec: 10/25/16 01:59 Farhan [id number]) Cardiac Monitoring Monitor Number HW Strip placed in Chart Yes Alarms/Limits HR Alarm 140/65 Heart Rate 81 EKG Method Telemetry Rhythm Sinus Rhythm AK Interval 0.26 QRS Interval 0.03 QT Interval 0.31 Document 10/25/16 01:59 Farhan (Rec: 10/25/16 02:00 Farhan [id number]) Cardiac Monitoring Monitor Number HW Strip placed in Chart Yes Alarms/Limits HR Alarm 140/65 Heart Rate 90 EKG Method Telemetry Rhythm Sinus Rhythm AK Interval 0.14 QRS Interval 0.04 QT Interval 0.34 Document 10/25/16 04:17 Farhan (Rec: 10/25/16 04:18 Farhan [id number]) Cardiac Monitoring Monitor Number HW Strip placed in Chart Yes Alarms/Limits HR Alarm 140/65 Heart Rate 96 Rhythm Atrial Fibrillation QRS Interval 0.04 QT Interval 0.34 Communication, pharmacist Start: 10/24/16 03: 55 Freq: Status: Complete Document 10/25/16 02:22 Farhan (Rec: 10/25/16 02:22 Farhan [id number]) Discharge Assessment Start: 10/23/16 20: 52 Freq: Status: Discharge Document 10/25/16 12:40 CJW (Rec: 10/25/16 12:46 CJW [id number]) Discharge Assessment Discharge Disposition Home Mode of Discharge Wheelchair Belongings sent with patient Yes Services Needed at Discharge Physical Therapy Summary of Care Provided Yes Patient was provided information on Yes accessing patient portal Level Of Consciousness Awake Alert Appropriate Follows Commands Eating (Feeding) Ability Independent Bathing Ability Independent Upper Body Dressing Ability Independent Lower Body Dressing Ability Independent Ambulation Ability Independent Toileting Ability Independent Bowel Continent Bladder Continent Has Patient Been in Isolation During No Hospital Stay Doctor's Appointment Made Yes Patient Education Given Yes Discharge Instructions Given To Patient Discharge Instructions Address Activity Diet Weight Measures Medications Symptoms Worsening Follow Up Labs Problems Patient instructed regarding new Yes medications and to provide the list to their Primary Care Provider Was patient discharged on Warfarin for No confirmed VTE diagnosis? Was patient discharged with diagnosis of No ischemic or hemmorrhagic stroke? Flu Vaccine Given No Reason Flu Vaccine Not Given Previously Received Current Flu Season Vaccine administration documented on No EMAR Nursing Summary CALL YOUR FAMILY PHYSICIAN OR RETURN TO THE EMERGENCY ROOM FOR A RETURN OR WORSENING OF SYMPTOMS. Document 10/25/16 12:47 TL (Rec: 10/25/16 12:51 TL [id number]) Discharge Assessment Discharge Disposition Home Mode of Discharge Wheelchair Belongings sent with patient Yes Services Needed at Discharge Physical Therapy Summary of Care Provided Yes Patient was provided information on Yes accessing patient portal Level Of Consciousness Awake Alert Appropriate Follows Commands Eating (Feeding) Ability Independent Bathing Ability Independent Upper Body Dressing Ability Independent Lower Body Dressing Ability Independent Ambulation Ability Independent Toileting Ability Independent Bowel Continent Bladder Continent Has Patient Been in Isolation During No Hospital Stay Doctor's Appointment Made Yes Patient Education Given Yes Discharge Instructions Given To Patient Discharge Instructions Address Activity Diet Weight Measures Medications Symptoms Worsening Follow Up Labs Problems Patient instructed regarding new Yes medications and to provide the list to their Primary Care Provider Was patient discharged on Warfarin for No confirmed VTE diagnosis? Follow-up appointment for INR monitoring Yes /lab draw scheduled Where scheduled? Avis Date 10/29/2016 Time 1300 Nurse provided patient with copy of Patient given written Warfarin discharge instructions from the information Discharge tab VTE Discharge Instructions Provided Follow-up arranged INR monitoring education Medication regimen compliance education Medication action/side effects education, guidance and counseling Medication interaction with food education Recommendation to continue current diet Vitamin K dietary intake education Was patient discharged with diagnosis of No ischemic or hemmorrhagic stroke? Flu Vaccine Given No Reason Flu Vaccine Not Given Previously Received Current Flu Season Vaccine administration documented on No [facility] Nursing Summary CALL YOUR FAMILY PHYSICIAN OR RETURN TO THE EMERGENCY ROOM FOR A RETURN OR WORSENING OF SYMPTOMS. Patient to follow normal Coumadin dosage and go to [place] [facility] on Tuesday's as usual. ED Arrhythmia Assessment Start: 10/23/16 18: 45 Freq: Status: Complete Document 10/23/16 18:51 JBF (Rec: 10/23/16 18:53 JBF [id number]) Arrhythmia/Palpations Symptoms/Complaint Rapid Heart Beat Irregular Heart Beat Onset 3 weeks Duration Constant Severity Moderate Context Unknown Arrhythmia History Atrial Fibrillation On Anti-Coagulants Hx Electrical Cardioversion Associated Symptoms Chest Pain Nausea Chest Pain Intensity (out of 10) 3 Description Tightness Radiation Location Back Level Of Consciousness Awake Alert Patient Orientation Person Place Time Name Age Date of Day of Month Day of Week Month Year Time of Day Skin Temperature Warm Skin Moisture Dry Skin Turgor Elastic Respiratory Depth Normal Respiratory Effort Normal for Patient Respiratory Pattern Regular Nausea/Vomiting Presence Nauseated Anxiety Level No Symptoms or Sensations Anxiety Associated Symptoms Denies Other Symptoms ED Discharge Assessment Start: 10/23/16 18: 45 Freq: Status: Discharge Document 10/23/16 21:14 NNN (Rec: 10/23/16 21:15 NNN [id number]) ED Discharge Assessment ED Discharge Disposition Admitted ED Condition on Discharge Fair Med Rec/Patient Pharmacy Completed? No Admitted to 2NE Bed assigned [id number] Transported by animal technician Transported with monitor IV Report given to Nurse Care transferred to (name/credentials) supplier specialist Information relayed patient's care treatments medications given condition recent/anticipated changes Clinical Documentation Summary Provided Yes Pain Scale 0 Pain Scale Used Standard (1-10) Blood Pressure 146/93 Heart rate 89 Respiratory Rate 18 Oxygen Delivery Room Air Oxygen Saturation 100 Critical Care Minutes 0 Environmental safety management Start: 10/24/16 03: 55 Freq: Status: Complete Document 10/25/16 02:22 Farhan (Rec: 10/25/16 02:22 Farhan [id number]) Fall Precautions Acute Start: 10/23/16 21: 43 Freq: Q12H Status: Discharge Document 10/23/16 23:00 [facility] (Rec: 10/24/16 03:55 [facility] [id number]) [facility] Fall Risk Assessment Tool Age 70-79 years (2 points) Fall History No falls within last 6 months (0 points) Elimination, Bowel, and Urine N/A (0 pts) Medications: Includes TRAINING ENGINEER/opiates, On 1 high fall risk drug (3 antivulsants, ant-hypertensives, points) diuretics, hypnotics, Patient Care Equipment: Any equipment One present (1 point) that tethers patient (e.g. IV infusions, chest tube, indwelling Mobility N/A (0 points) Cognition N/A (0 points) Total Fall Risk Score 6 Fall Risk Category Moderate Risk (6-13) Fall Risk Interventions Low Risk Interventions Bed in lowest position Top side rails up x 2 Secure brake on bed Use properly fitting non-skid footwear Call light and frequently needed objects within reach Encourage patients/families to call for assistance when needed Fall education including risk assessment, injury risk and routine/ Inspect environment for safety and communication risk Supervise and assist with toileting/ADLs as needed Document 10/24/16 08:43 [id number] (Rec: 10/24/16 08:45 [id number]) [facility] Fall Risk Assessment Tool Age 70-79 years (2 points) Fall History No falls within last 6 months (0 points) Elimination, Bowel, and Urine N/A (0 pts) Medications: Includes TRAINING ENGINEER/opiates, On 1 high fall risk drug (3 antivulsants, ant-hypertensives, points) diuretics, hypnotics, Patient Care Equipment: Any equipment One present (1 point) that tethers patient (e.g. IV infusions, chest tube, indwelling Mobility N/A (0 points) Cognition N/A (0 points) Total Fall Risk Score 6 Fall Risk Category Moderate Risk (6-13) Fall Risk Interventions Low Risk Interventions Bed in lowest position Top side rails up x 2 Secure brake on bed Use properly fitting non-skid footwear Call light and frequently needed objects within reach Encourage patients/families to call for assistance when needed Fall education including risk assessment, injury risk and routine/ Inspect environment for safety and communication risk Supervise and assist with toileting/ADLs as needed Document 10/24/16 19:30 Farhan (Rec: 10/24/16 19:41 Farhan [id number]) [facility] Fall Risk Assessment Tool High Fall Risk-Implement High Fall Risk History of more than one fall interventions per protocol within 6 months before admission Fall Risk Category High Risk Fall Risk Interventions Low Risk Interventions Bed in lowest position Top side rails up x 2 Secure brake on bed Use properly fitting non-skid footwear Call light and frequently needed objects within reach Encourage patients/families to call for assistance when needed Fall education including risk assessment, injury risk and routine/ Inspect environment for safety and communication risk Supervise and assist with toileting/ADLs as needed Moderate Risk Interventions Institue fall-risk tooklit ( yellow flag, yellow non-skid socks and Document 10/25/16 08:25 [facility] (Rec: 10/25/16 08:29 [facility] [id number]) [facility] Fall Risk Assessment Tool Age 70-79 years (2 points) Fall History No falls within last 6 months (0 points) Elimination, Bowel, and Urine N/A (0 pts) Medications: Includes TRAINING ENGINEER/opiates, On 1 high fall risk drug (3 antivulsants, ant-hypertensives, points) diuretics, hypnotics, Patient Care Equipment: Any equipment One present (1 point) that tethers patient (e.g. IV infusions, chest tube, indwelling Mobility N/A (0 points) Cognition N/A (0 points) Total Fall Risk Score 6 Fall Risk Category Moderate Risk (6-13) Fall Risk Interventions Low Risk Interventions Bed in lowest position Top side rails up x 2 Secure brake on bed Use properly fitting non-skid footwear Call light and frequently needed objects within reach Encourage patients/families to call for assistance when needed Fall education including risk assessment, injury risk and routine/ Inspect environment for safety and communication risk Supervise and assist with toileting/ADLs as needed Moderate Risk Interventions Institue fall-risk tooklit ( yellow flag, yellow non-skid socks and Flu Vaccine Screen Start: 10/23/16 20: 52 Freq: Status: Discharge Document 10/25/16 12:40 [facility]ERN[facility] (Rec: 10/25/16 12:46 ANA LILIA [id number]) Flu Vaccine Screen Influenza vaccine indications 6 months of age or older Flu Vaccine Contraindications Previously Received Current Flu Season Vaccine Information Sheet Given(Version Yes 03/28/2015) Patient meets criteria for vaccination No and consents to receive it IV-Invasive Line Management Start: 10/23/16 21: 43 Freq: Q4H Status: Discharge Document 10/23/16 23:00 SMM (Rec: 10/24/16 03:55 SMM [id number]) IV/Invasive Line Assessment Right Antecubital Reason for Line Insertion/Rationale for Provide Access for IV Insertion Medication(s) Provide Access for Emergency Gauge (gauge) 18 IV Catheter Type Peripheral IV Site Observation Patent Site Observation Intervention Inspected Line Dressing Applied Transparent Dressing Dry/Intact Line Care Saline Flush Document 10/24/16 03:30 SMM (Rec: 10/24/16 08:42 SMM [id number]) IV/Invasive Line Assessment Right Antecubital Reason for Line Insertion/Rationale for Provide Access for IV Insertion Medication(s) Provide Access for Emergency Gauge (gauge) 18 IV Catheter Type Peripheral IV Site Observation Patent Site Observation Intervention Inspected Line Dressing Applied Transparent Dressing Dry/Intact Line Care Saline Flush Document 10/24/16 08:41 [id number] (Rec: 10/24/16 08:42 [id number]) IV/Invasive Line Assessment Right Antecubital Reason for Line Insertion/Rationale for Provide Access for IV Insertion Medication(s) Provide Access for Emergency Gauge (gauge) 18 IV Catheter Type Peripheral IV Site Observation Patent Site Observation Intervention Inspected Line Dressing Applied Transparent Dressing Dry/Intact Line Care Saline Flush Document 10/24/16 12:18 [id number] (Rec: 10/24/16 12:19 [id number]) IV/Invasive Line Assessment Right Antecubital Reason for Line Insertion/Rationale for Provide Access for IV Insertion Medication(s) Provide Access for Emergency Gauge (gauge) 18 IV Catheter Type Peripheral IV Site Observation Patent Site Observation Intervention Inspected Line Dressing Applied Transparent Dressing Dry/Intact Line Care Saline Flush Document 10/24/16 17:21 TLH (Rec: 10/24/16 17:27 TLH [id number]) IV/Invasive Line Assessment Right Antecubital Reason for Line Insertion/Rationale for Provide Access for IV Insertion Medication(s) Provide Access for Emergency Gauge (gauge) 18 IV Catheter Type Peripheral IV Site Observation Patent Site Observation Intervention Inspected Line Dressing Applied Transparent Dressing Dry/Intact Line Care Saline Flush Labs drawn from Line* No Document 10/24/16 19:30 Farhan (Rec: 10/24/16 19:41 Farhan [id number]) IV/Invasive Line Assessment Right Antecubital Reason for Line Insertion/Rationale for Provide Access for IV Insertion Medication(s) Provide Access for Emergency Gauge (gauge) 18 IV Catheter Type Peripheral IV Site Observation Patent Site Observation Intervention Inspected Line Dressing Applied Transparent Dressing Dry/Intact Line Care Saline Flush Document 10/25/16 01:33 Farhan (Rec: 10/25/16 01:34 Farhan [id number]) IV/Invasive Line Assessment Right Antecubital Reason for Line Insertion/Rationale for Provide Access for IV Insertion Medication(s) Provide Access for Emergency Gauge (gauge) 18 IV Catheter Type Peripheral IV Site Observation Patent Site Observation Intervention Inspected Line Dressing Applied Transparent Dressing Dry/Intact Line Care Saline Flush Labs drawn from Line* No Document 10/25/16 04:05 Farhan (Rec: 10/25/16 04:09 Farhan [id number]) IV/Invasive Line Assessment Right Antecubital Reason for Line Insertion/Rationale for Provide Access for IV Insertion Medication(s) Provide Access for Emergency Gauge (gauge) 18 IV Catheter Type Peripheral IV Site Observation Patent Site Observation Intervention Inspected Line Dressing Applied Transparent Dressing Dry/Intact Line Care Saline Flush Labs drawn from Line* No Document 10/25/16 08:25 TLH (Rec: 10/25/16 08:29 TLH [id number]) IV/Invasive Line Assessment Right Antecubital Reason for Line Insertion/Rationale for Provide Access for IV Insertion Medication(s) Provide Access for Emergency Gauge (gauge) 18 IV Catheter Type Peripheral IV Site Observation Patent Site Observation Intervention Inspected Line Dressing Applied Transparent Dressing Dry/Intact Line Care Saline Flush Document 10/25/16 13:00 TLH (Rec: 10/25/16 13:52 TLH [id number]) IV/Invasive Line Assessment Date IV Line Discontinued 10/25/16 Time IV Line Discontinued 13:51 IV Line Discontinue Reason discharge Condition of IV Line Removed angiocath intact IV Line Removal Patient Tolerance Tolerated Well Sterile Dressing Applied IV removed/ tip intact Bleeding Controlled Education Completed Expresses Understanding Labs drawn from Line* No Initial Patient Assessment Start: 10/23/16 21: 43 Freq: .ONCE Status: Discharge Document 10/23/16 23:58 SMM (Rec: 10/24/16 00:17 SMM [id number]) General Questions Date of Arrival on Unit 10/23/16 Time of Arrival on Unit 21:45 Admitted From Emergency Dept Chief Complaint [place], chest pressure, thought she was going into a-fib? Onset of Chief Complaint 10/11/16 History Provided By Patient Orientation To Call Light Bed Phone TV Bathroom Smoking Policy Visiting Hours Procedures ID Bracelet On Emergency Contact Name Lacey Garcia Relationship to Patient sister in law Emergency Contact Bands applied ID band Allergy band Patient Health Portal Patient was provided information on Yes accessing patient portal Patient Requests Portal Enrollment No Reason No Portal Enrollment Patient Declines Malnutrition Screening Tool (MST) Have You Recently Lost Weight Without No Trying Advance Directives Advance Directives Yes Advance Directives on File Yes: Pt states has put them on file with Dr. Muñoz in the past. Living Will Yes Patient Rights Copy of Rights Given and Verbalizes Yes Understanding Tobacco Free Melba: Copy of AHS Yes Statement Given and Patient Verbalizes Understanding Communication Ability Preferred Language Italian Ability to Follow Directions Excellent Able to Read Yes Able to Write Yes Learning Preferences Written Discussion Hearing Ability Normal Visual Assistive Devices Glasses Pain Assessment Do You Have Any Ongoing (Chronic) Pain No Problems Educated on Pain Scale Yes Past Medical History Medical history arthritis atrial fibrillation GERD GI bleed hypertension osteoporosis RA Female Surgical History hysterectomy knee replacement Psychiatric history no psych history Smoking Status Never smoker Smokeless Tobacco Status No Alcohol use none Drug use none Family History-Meaningful Use Father Race Living Status Age at 62 Cause of Heart attack Hx Family Cardiac Disorders Yes Mother Race Living Status Age at 72 Cause of Heart attack Hx Family Cardiac Disorders Yes Hx Family Endocrine Disorder Yes: DM Spiritual Needs Spiritual Referral None Psychosocial Over Age 75 and Lives Alone or Over Age No 80 Potential Need for Follow-up Care (ECF, No Home Health, ECT) Developmentally Disabled or History of No Mental Health Problems Diagnosis with Relocation Director Need or No Terminal Implications Responsible for Care of Others No Financial Concerns No Suspected Abuse or Neglect No Suicidal or Homicidal Ideation No Social Service Consult Needed No Functional Assessment Employment Status Retired Community Services Used Prior to Physical Therapy Admission Eating (Feeding) Ability Independent Bathing Ability Independent Upper Body Dressing Ability Independent Lower Body Dressing Ability Independent Ambulation Ability Independent Toileting Ability Independent Bladder Continent Bowel Continent Normal Bowel Pattern Daily Date of Last Known Bowel Movement 10/23/16 Measure intake and output Start: 10/23/16 21: 35 Freq: QSHIFT Status: Discharge Document 10/23/16 22:15 [id number] (Rec: 10/23/16 22:42 WJS [id number]) Document 10/24/16 07:07 [id number] (Rec: 10/24/16 07:08 [id number]) Intake and Output Intake, Oral Amount 200 Output, Urine Amount 300 Document 10/24/16 08:42 [id number] (Rec: 10/24/16 08:43 [id number]) Intake and Output Intake, Oral Amount 120 Meal Breakfast Percent of Meal Consumed 30% Oral Supplements* None Document 10/24/16 11:14 [id number] (Rec: 10/24/16 11:15 [id number]) Intake and Output Intake, Oral Amount 0 Output, Urine Amount 150 Document 10/24/16 13:28 KSR (Rec: 10/24/16 13:29 KSR [id number]) Intake and Output Intake, Oral Amount 60 Meal Lunch Percent of Meal Consumed 90% Oral Supplements* None Document 10/24/16 20:02 WJS (Rec: 10/24/16 20:09 WJS [id number]) Intake and Output Intake, Oral Amount 0 Number of Voids 0 Document 10/25/16 00:19 WJS (Rec: 10/25/16 00:23 WJS [id number]) Intake and Output Intake, Oral Amount 0 Number of Voids 0 Document 10/25/16 05:14 WJS (Rec: 10/25/16 05:20 WJS [id number]) Intake and Output Intake, Oral Amount 200 Number of Voids 0 Document 10/25/16 09:00 CJW (Rec: 10/25/16 09:54 CJW [id number]) Intake and Output Output, Urine Amount 3,000 Document 10/25/16 09:54 JAB (Rec: 10/25/16 09:55 JAB [id number]) Intake and Output Intake, Oral Amount 240 Meal Breakfast Percent of Meal Consumed 60% Oral Supplements* None Measure weight Start: 10/23/16 21: 35 Freq: DAILY Status: Discharge Document 10/23/16 22:44 WJS (Rec: 10/23/16 22:45 WJS [id number]) Height and Weight Weight 56.4 kg Weight Measurement Method Built in Bedscale Document 10/25/16 05:14 WJS (Rec: 10/25/16 05:20 WJS [id number]) Height and Weight Weight 57.3 kg Weight Measurement Method Built in Bedscale Med [employer] Start: 10/24/16 14: 03 Freq: Status: Discharge Document 10/24/16 14:03 MRB (Rec: 10/24/16 14:03 MRB [id number]) Pharmacy [facility] [employer] Home Medicatons Reconciled? Yes Was this to catch up from previous day Yes Does patient take 10 or more medications Yes ? Does patient request medication No education Do home meds include Coumadin, Xarelto, No Pradaxa, Eliquis Added Patient Preferred Pharmacy Yes Verified Allergies Yes Would Patient Like to use [facility] No Patient Pharmacy Oxygen administration Start: 10/23/16 21: 43 Freq: Q12H Status: Discharge Document 10/23/16 23:00 SMM (Rec: 10/24/16 03:55 SMM [id number]) Oxygen Heart rate 81 O2 Sat by Pulse Oximetry (95-100) 99 Oxygen Delivery Method Room Air Document 10/24/16 08:43 [id number] (Rec: 10/24/16 08:45 [id number]) Oxygen Heart rate 105 O2 Sat by Pulse Oximetry (95-100) 100 Oxygen Delivery Method Room Air Comment no home O2 Document 10/24/16 19:30 Farhan (Rec: 10/24/16 19:41 Farhan [id number]) Oxygen Oxygen Delivery Method Room Air Document 10/25/16 08:25 TLH (Rec: 10/25/16 08:29 TLH [id number]) Oxygen O2 Sat by Pulse Oximetry (95-100) 98 Oxygen Delivery Method Room Air Patient Belongings Start: 10/23/16 21: 43 Freq: .ONCE Status: Discharge Document 10/23/16 23:58 SMM (Rec: 10/24/16 00:17 SMM [id number]) Patient Belongings Belongings With Patient on Admission Yes In Patient Closet Patient Belongings Cell Phone Coat Glasses Jewelry Pants Purse Shirt Shoes Socks Undergarments Belongings Comment Pt denies locking any items up . Patient Rounding Start: 10/23/16 21: 43 Freq: Q1H Status: Discharge Document 10/23/16 22:15 WJS (Rec: 10/23/16 22:42 WJS [id number]) Hourly Rounding Hourly Rounding Checked for Patient Positioning Patient Personal Items Placed Within Reach Hourly Rounding Completed Yes Patient Awake Is family present? No Safety Call Light Within Reach Bed Position Low Fall Precautions Phone Within Reach Bed Brake On Side Rails Up X2 Are the Floors Free From Trip Hazards? Yes Is the Room Free From Clutter? Yes Document 10/23/16 23:00 SMM (Rec: 10/24/16 03:55 SMM [id number]) Hourly Rounding Hourly Rounding Checked for Patient Positioning Patient Personal Items Placed Within Reach Checked Patient Pain Level Hourly Rounding Completed Yes Patient Awake Is family present? No Equipment in Use Specialty Bed Safety Call Light Within Reach Bed Position Low Fall Precautions Phone Within Reach Bed Brake On Side Rails Up X2 Are the Floors Free From Trip Hazards? Yes Is the Room Free From Clutter? Yes Turn and Postion Bedrest No Turn Q 2HR No Patient Position Back Head of Bed Position (degrees) 20 Document 10/24/16 00:04 WJS (Rec: 10/24/16 00:08 WJS [id number]) Hourly Rounding Hourly Rounding Checked for Patient Positioning Patient Personal Items Placed Within Reach Hourly Rounding Completed Yes Patient Awake Is family present? No Safety Call Light Within Reach Bed Position Low Fall Precautions Phone Within Reach Bed Brake On Side Rails Up X2 Are the Floors Free From Trip Hazards? Yes Is the Room Free From Clutter? Yes Document 10/24/16 01:15 SMM (Rec: 10/24/16 03:57 SMM [id number]) Hourly Rounding Hourly Rounding Checked for Patient Positioning Patient Personal Items Placed Within Reach Hourly Rounding Completed Yes Patient Resting With Eyes Closed Is family present? No Equipment in Use Specialty Bed Safety Call Light Within Reach Bed Position Low Fall Precautions Phone Within Reach Bed Brake On Side Rails Up X2 Are the Floors Free From Trip Hazards? Yes Is the Room Free From Clutter? Yes Turn and Postion Bedrest No Turn Q 2HR No Patient Position Back Head of Bed Position (degrees) 20 Document 10/24/16 04:42 WJS (Rec: 10/24/16 04:43 WJS [id number]) Hourly Rounding Hourly Rounding Checked for Patient Positioning Patient Personal Items Placed Within Reach Hourly Rounding Completed Yes Patient Awake Is family present? No Safety Call Light Within Reach Bed Position Low Fall Precautions Phone Within Reach Bed Brake On Side Rails Up X2 Are the Floors Free From Trip Hazards? Yes Is the Room Free From Clutter? Yes Document 10/24/16 05:30 SMM (Rec: 10/24/16 08:36 SMM [id number]) Hourly Rounding Hourly Rounding Checked for Patient Positioning Hourly Rounding Completed Yes Patient Resting With Eyes Closed Is family present? No Equipment in Use Specialty Bed Safety Call Light Within Reach Bed Position Low Fall Precautions Phone Within Reach Bed Brake On Side Rails Up X2 Are the Floors Free From Trip Hazards? Yes Is the Room Free From Clutter? Yes Turn and Postion Bedrest No Turn Q 2HR No Patient Position Back Head of Bed Position (degrees) 20 Document 10/24/16 09:00 [id number] (Rec: 10/24/16 10:30 [id number]) Hourly Rounding Patient Out of Room Document 10/24/16 10:00 [id number] (Rec: 10/24/16 10:30 [id number]) Hourly Rounding Patient Out of Room Document 10/24/16 11:14 [id number] (Rec: 10/24/16 11:15 [id number]) Hourly Rounding Hourly Rounding Checked for Patient Positioning Patient Personal Items Placed Within Reach Hourly Rounding Completed Yes Patient Awake Is family present? No Equipment in Use Specialty Bed Safety Call Light Within Reach Bed Position Low Fall Precautions Phone Within Reach Bed Brake On Side Rails Up X2 Are the Floors Free From Trip Hazards? Yes Is the Room Free From Clutter? Yes Turn and Postion Bedrest No Turn Q 2HR No Document 10/24/16 14:00 [id number] (Rec: 10/24/16 15:41 [id number]) Hourly Rounding Hourly Rounding Checked for Patient Positioning Patient Personal Items Placed Within Reach Hourly Rounding Completed Yes Patient Awake Is family present? No Equipment in Use Specialty Bed Safety Call Light Within Reach Bed Position Low Fall Precautions Phone Within Reach Bed Brake On Side Rails Up X2 Are the Floors Free From Trip Hazards? Yes Is the Room Free From Clutter? Yes Turn and Postion Bedrest No Turn Q 2HR No Patient Position Sitting on Side of Bed Document 10/24/16 17:21 TLH (Rec: 10/24/16 17:27 TLH [id number]) Hourly Rounding Hourly Rounding Checked for Patient Positioning Patient Personal Items Placed Within Reach Checked Patient Pain Level Hourly Rounding Completed Yes Patient Awake Is family present? No Equipment in Use Specialty Bed Safety Call Light Within Reach Bed Position Low Fall Precautions Phone Within Reach Bed Brake On Side Rails Up X2 Are the Floors Free From Trip Hazards? Yes Is the Room Free From Clutter? Yes Turn and Postion Bedrest No Turn Q 2HR No Patient Position Sitting on Side of Bed Document 10/24/16 19:30 Farhan (Rec: 10/24/16 19:41 Farhan [id number]) Hourly Rounding Hourly Rounding Checked for Patient Positioning Patient Personal Items Placed Within Reach Checked Patient Pain Level Hourly Rounding Completed Yes Patient Awake Is family present? No Safety Call Light Within Reach Bed Position Low Fall Precautions Phone Within Reach Bed Brake On Side Rails Up X2 Are the Floors Free From Trip Hazards? Yes Is the Room Free From Clutter? Yes Turn and Postion Bedrest No Turn Q 2HR No Patient Position Back Positioning Aides Pillows Document 10/24/16 20:02 WJS (Rec: 10/24/16 20:09 WJS [id number]) Hourly Rounding Hourly Rounding Checked for Patient Positioning Patient Personal Items Placed Within Reach Hourly Rounding Completed Yes Patient Awake Is family present? No Safety Call Light Within Reach Bed Position Low Fall Precautions Phone Within Reach Bed Brake On Side Rails Up X2 Are the Floors Free From Trip Hazards? Yes Is the Room Free From Clutter? Yes Document 10/25/16 00:19 WJS (Rec: 10/25/16 00:23 WJS [id number]) Hourly Rounding Hourly Rounding Checked for Patient Positioning Patient Personal Items Placed Within Reach Hourly Rounding Completed Yes Patient Awake Is family present? No Safety Call Light Within Reach Bed Position Low Fall Precautions Phone Within Reach Bed Brake On Side Rails Up X2 Are the Floors Free From Trip Hazards? Yes Is the Room Free From Clutter? Yes Document 10/25/16 01:33 Farhan (Rec: 10/25/16 01:33 Farhan [id number]) Hourly Rounding Hourly Rounding Checked for Patient Positioning Patient Personal Items Placed Within Reach Checked Patient Pain Level Hourly Rounding Completed Yes Patient Sleeping Is family present? No Safety Call Light Within Reach Bed Position Low Fall Precautions Phone Within Reach Bed Brake On Side Rails Up X2 Are the Floors Free From Trip Hazards? Yes Is the Room Free From Clutter? Yes Turn and Postion Bedrest No Turn Q 2HR No Patient Position Back Positioning Aides Pillows Document 10/25/16 04:05 Farhan (Rec: 10/25/16 04:09 Farhan [id number]) Hourly Rounding Hourly Rounding Checked for Patient Positioning Patient Personal Items Placed Within Reach Checked Patient Pain Level Hourly Rounding Completed Yes Patient Sleeping Is family present? No Safety Call Light Within Reach Bed Position Low Fall Precautions Phone Within Reach Bed Brake On Side Rails Up X2 Are the Floors Free From Trip Hazards? Yes Is the Room Free From Clutter? Yes Turn and Postion Bedrest No Turn Q 2HR No Patient Position Right Side Positioning Aides Pillows Document 10/25/16 05:14 WJS (Rec: 10/25/16 05:20 WJS [id number]) Hourly Rounding Hourly Rounding Checked for Patient Positioning Patient Personal Items Placed Within Reach Hourly Rounding Completed Yes Patient Awake Is family present? No Safety Call Light Within Reach Bed Position Low Fall Precautions Phone Within Reach Bed Brake On Side Rails Up X2 Are the Floors Free From Trip Hazards? Yes Is the Room Free From Clutter? Yes Document 10/25/16 07:18 JAB (Rec: 10/25/16 07:21 JAB [id number]) Hourly Rounding Hourly Rounding Checked for Patient Positioning Patient Personal Items Placed Within Reach Hourly Rounding Completed Yes Patient Awake Is family present? No Safety Call Light Within Reach Bed Position Low Bed Exit Alarm Fall Precautions Phone Within Reach Bed Brake On Side Rails Up X2 Are the Floors Free From Trip Hazards? Yes Is the Room Free From Clutter? Yes Turn and Postion Bedrest Yes Turn Q 2HR No Document 10/25/16 08:25 TLH (Rec: 10/25/16 08:29 TLH [id number]) Hourly Rounding Hourly Rounding Checked for Patient Positioning Patient Personal Items Placed Within Reach Checked Patient Pain Level Hourly Rounding Completed Yes Patient Awake Is family present? No Equipment in Use Specialty Bed Safety Call Light Within Reach Bed Position Low Bed Exit Alarm Fall Precautions Phone Within Reach Bed Brake On Side Rails Up X2 Are the Floors Free From Trip Hazards? Yes Is the Room Free From Clutter? Yes Turn and Postion Bedrest Yes Turn Q 2HR No Document 10/25/16 11:22 JAB (Rec: 10/25/16 11:22 CADE [id number]) Hourly Rounding Hourly Rounding Checked for Patient Positioning Patient Personal Items Placed Within Reach Checked Patient Pain Level Hourly Rounding Completed Yes Patient Awake Is family present? No Equipment in Use Specialty Bed Safety Call Light Within Reach Bed Position Low Phone Within Reach Bed Brake On Side Rails Up X2 Are the Floors Free From Trip Hazards? Yes Is the Room Free From Clutter? Yes Turn and Postion Bedrest No Turn Q 2HR No Document 10/25/16 13:00 TLH (Rec: 10/25/16 13:52 TLH [id number]) Hourly Rounding Hourly Rounding Checked for Patient Positioning Patient Personal Items Placed Within Reach Checked Patient Pain Level Hourly Rounding Completed No Patient Awake Is family present? No Equipment in Use Specialty Bed Safety Call Light Within Reach Bed Position Low Phone Within Reach Bed Brake On Side Rails Up X2 Are the Floors Free From Trip Hazards? Yes Is the Room Free From Clutter? Yes Turn and Postion Bedrest No Turn Q 2HR No RT Continuous Pulse Oximetry Start: 10/23/16 21: 35 Freq: CONT Status: Discharge Document 10/24/16 08:41 [id number] (Rec: 10/24/16 08:42 [id number]) Pulse Oximetry O2 Sat by Pulse Oximetry (95-100) 100 Heart rate 105 Oxygen Delivery Method Room Air Comment no home O2 Saline lock insertion/management Start: 10/23/16 18: 58 Freq: .ONCE Status: Complete Document 10/23/16 19:02 [facility] (Rec: 10/23/16 19:02 [facility] [id number]) IV Insertion/Site Assessment IV Attempt 1 Successful Successful Blood drawn and sent to Lab Yes Right Antecubital Date of Insertion 10/23/16 Time of Insertion 19:02 Reason for IV Insertion Provide Access for IV Medication(s) IV Catheter Type Peripheral IV Gauge (gauge) 18 Site Observation Patent Dressing Applied Transparent Dressing Patient Tolerance Tolerated Well Sepsis Screening Start: 10/23/16 21: 43 Freq: Q8H Status: Discharge Document 10/23/16 23:00 SMM (Rec: 10/24/16 03:55 SMM [id number]) Sepsis Screening Sepsis Infection Criteria Present none Sepsis SIRS Criteria none Sepsis Screen No Definite Risk Sepsis Action Taken no action required Document 10/24/16 03:30 SMM (Rec: 10/24/16 08:42 SMM [id number]) Sepsis Screening Sepsis Infection Criteria Present none Sepsis SIRS Criteria none Sepsis Screen No Definite Risk Sepsis Action Taken no action required Document 10/24/16 08:43 [id number] (Rec: 10/24/16 08:43 [id number]) Sepsis Screening Sepsis Infection Criteria Present none Sepsis SIRS Criteria none Sepsis Screen No Definite Risk Sepsis Action Taken no action required Document 10/24/16 17:21 TLH (Rec: 10/24/16 17:27 TLH [id number]) Sepsis Screening Sepsis Infection Criteria Present none Sepsis SIRS Criteria none Sepsis Screen No Definite Risk Sepsis Action Taken no action required Document 10/24/16 19:30 Farhan (Rec: 10/24/16 19:41 Farhan [id number]) Sepsis Screening Sepsis Infection Criteria Present none Sepsis SIRS Criteria none Sepsis Screen No Definite Risk Sepsis Action Taken no action required Document 10/25/16 04:05 Farhan (Rec: 10/25/16 04:09 Farhan [id number]) Sepsis Screening Sepsis Infection Criteria Present none Sepsis SIRS Criteria none Sepsis Screen No Definite Risk Sepsis Action Taken no action required Skin Risk Assessment Scale Start: 10/23/16 21: 43 Freq: Q12H Status: Discharge Document 10/23/16 23:00 SMM (Rec: 10/24/16 03:55 SMM [id number]) Skin Risk Assessment Scale Moisture Risk Rarely Moist Sensory Perception No Impairment Activity Risk Walks Frequently Mobility Risk No Limitations Nutrition Risk Adequate Friction & Shear Risk No Apparent Problem Skin Risk Total Score (points) 22 Document 10/24/16 08:43 [id number] (Rec: 10/24/16 08:45 [id number]) Skin Risk Assessment Scale Moisture Risk Rarely Moist Sensory Perception No Impairment Activity Risk Walks Frequently Mobility Risk No Limitations Nutrition Risk Adequate Friction & Shear Risk No Apparent Problem Skin Risk Total Score (points) 22 Document 10/24/16 19:30 Farhan (Rec: 10/24/16 19:41 Farhan [id number]) Skin Risk Assessment Scale Moisture Risk Rarely Moist Sensory Perception No Impairment Activity Risk Walks Frequently Mobility Risk No Limitations Nutrition Risk Adequate Friction & Shear Risk No Apparent Problem Skin Risk Total Score (points) 22 Document 10/25/16 08:25 TLH (Rec: 10/25/16 08:29 TLH [id number]) Skin Risk Assessment Scale Moisture Risk Rarely Moist Sensory Perception No Impairment Activity Risk Walks Frequently Mobility Risk No Limitations Nutrition Risk Adequate Friction & Shear Risk No Apparent Problem Skin Risk Total Score (points) 22 System Review Start: 10/23/16 21: 43 Freq: Q8H Status: Discharge Document 10/23/16 23:00 SMM (Rec: 10/24/16 03:55 SMM [id number]) Pain Assessment Pain Present Reports No Pain Neurological Assessment Eye Opening Spontaneous Motor Obeys Commands Verbal Oriented Coma Scale Total 15 Neurologic Status Alert Patient Orientation Person Place Time Arousable To Name Speech Pattern Normal rate Normal rhythm Normal tone Appropriate Clear Coherent Patient Behavior Appropriate Cooperative Mood Description Calm Relaxed Appropriate Bilateral Pupil Reaction Reactive Pupil Size (mm) 3 Pupil [place] Equal Embalmer Apprentice Strength Equal Push/Pull Equal Numbness/Tingling No Facial Symmetry Symmetrical Neurological Comment: Pt is pleasant and conversant. Cardiovascular Assessment Signs and Symptoms Irregular Heart Rhythm Arrhythmia on Telemetry Pulse Rhythm Irregular Jugular Vein Distention None Capillary Refill < 3 Seconds Circulatory Tenderness Description None Right Radial 2+ Left Radial 2+ Right Dorsalis Pedis 2+ Left Dorsalis Pedis 2+ Intensity (out of 10) 0 Has Confirmed Diagnosis of DVT, PE or No VTE VTE Prophylaxis PO Treatment Mechanical Prophylaxis No Cardiac Monitoring Heart Rate 81 Monitoring Method Telemetry Rhythm Atrial Fibrillation Monitor Number HW Investment Strategist Limits 120/70 Strip placed in Chart Yes Pacemaker Assessment Cardiac Comment: Pt states no chest pain at this time. Respiratory Assessment Respiratory Symptoms None Effort Normal for Patient Depth Normal Respiratory Pattern Regular Chest Shape Normal Expansion Symmetrical All Lung Horn Clear Oxygen Delivery Method Room Air Cough Description None Sputum Amount None Gastrointestinal Assessment Abdomen Description Soft Non-Tender 3 or more loose stools, in less than 24 No hours Nausea/Vomiting Presence None All Four Quadrants Active Flatus Presence Present Genitourinary Assessment Genitourinary Symptoms None Bladder Pattern Normal Voiding Method Bedside Commode Urine Appearance Clear Color Dark Yellow Odor Normal Bladder Distention None Suprapubic Tenderness with Palpation No Integumentary Assessment Nail Bed Appearance [place] Temperature Warm Moisture Dry Turgor Normal Color Normal All Pressure Points Assessed Yes Evidence of Incision/Wounds/Breakdown Yes: s/p L knee replacement healing inscision. Edges well aproximated. Integumentary Comment: No open wounds noted. Small scab noted to top of L knee inscision. No drainage. Open to air. Skin pink warm and dry . Musculoskeletal Assessment Musculoskeletal Symptoms Generalized Weakness Document 10/24/16 03:30 SMM (Rec: 10/24/16 08:42 SMM [id number]) Pain Assessment Pain Present Reports No Pain Neurological Assessment Eye Opening Spontaneous Motor Obeys Commands Verbal Oriented Coma Scale Total 15 Neurologic Status Alert Patient Orientation Person Place Time Arousable To Name Speech Pattern Normal rate Normal rhythm Normal tone Appropriate Clear Coherent Patient Behavior Appropriate Cooperative Mood Description Calm Relaxed Appropriate Embalmer Apprentice Strength Equal Numbness/Tingling No Facial Symmetry Symmetrical Cardiovascular Assessment Signs and Symptoms Irregular Heart Rhythm Arrhythmia on Telemetry Pulse Rhythm Irregular Capillary Refill < 3 Seconds Right Radial 2+ Left Radial 2+ Right Dorsalis Pedis 2+ Left Dorsalis Pedis 2+ Intensity (out of 10) 0 Has Confirmed Diagnosis of DVT, PE or No VTE VTE Prophylaxis PO Treatment Mechanical Prophylaxis No Cardiac Monitoring Heart Rate 70 Monitoring Method Telemetry Rhythm Atrial Fibrillation Monitor Number HW Investment Strategist Limits 120/70 Strip placed in Chart Yes Respiratory Assessment Respiratory Symptoms None Effort Normal for Patient Depth Normal Respiratory Pattern Regular Chest Shape Normal Expansion Symmetrical Right Upper Lobe Clear Right Middle Lobe Clear Right Lower Lobe Clear Left Upper Lobe Clear Left Lower Lobe Clear Oxygen Delivery Method Room Air Cough Description None Sputum Amount None Genitourinary Assessment Genitourinary Symptoms None Bladder Distention None Suprapubic Tenderness with Palpation No Integumentary Assessment Nail Bed Appearance [place] Temperature Warm Moisture Dry Turgor Normal Color Normal All Pressure Points Assessed Yes Evidence of Incision/Wounds/Breakdown Yes: s/p L knee replacement healing inscision. Edges well aproximated. Integumentary Comment: No open wounds noted. Small scab noted to top of L knee inscision. No drainage. Open to air. Skin pink warm and dry . Musculoskeletal Assessment Musculoskeletal Symptoms Generalized Weakness Document 10/24/16 08:45 [id number] (Rec: 10/24/16 08:48 [id number]) Pain Assessment Pain Present Reports No Pain Neurological Assessment Eye Opening Spontaneous Motor Obeys Commands Verbal Oriented Coma Scale Total 15 Neurologic Status Alert Patient Orientation Person Place Time Arousable To Name Speech Pattern Normal rate Normal rhythm Normal tone Appropriate Clear Coherent Patient Behavior Appropriate Cooperative Mood Description Calm Relaxed Appropriate Bilateral Pupil Reaction Reactive Pupil Size (mm) 3 Pupil [place] Equal Embalmer Apprentice Strength Equal Push/Pull Equal Numbness/Tingling No Facial Symmetry Symmetrical Cardiovascular Assessment Signs and Symptoms Irregular Heart Rhythm Arrhythmia on Telemetry Pulse Rhythm Irregular Jugular Vein Distention None Capillary Refill < 3 Seconds Circulatory Tenderness Description None Right Radial 2+ Left Radial 2+ Right Dorsalis Pedis 2+ Left Dorsalis Pedis 2+ Chest Pain Complaint No Intensity (out of 10) 0 Description Tightness Radiation Location Back Has Confirmed Diagnosis of DVT, PE or No VTE VTE Prophylaxis PO Treatment Mechanical Prophylaxis No Cardiac Monitoring Heart Rate 72 Monitoring Method Telemetry Rhythm Atrial Fibrillation [place] Interval 0 QRS Interval 0.10 QT Interval 0 Monitor Number HW Investment Strategist Limits 120/70 Strip placed in Chart Yes Respiratory Assessment Respiratory Symptoms None Effort Normal for Patient Depth Normal Respiratory Pattern Regular Chest Shape Normal Expansion Symmetrical All Lung [place] Clear Right Upper Lobe Clear Right Middle Lobe Clear Right Lower Lobe Clear Left Upper Lobe Clear Left Lower Lobe Clear Right Upper Lobe Clear Right Middle Lobe Clear Right Lower Lobe Clear Left Upper Lobe Clear Left Lower Lobe Clear Oxygen Delivery Method Room Air Cough Description None Sputum Amount None Gastrointestinal Assessment Abdomen Description Soft Non-Tender 3 or more loose stools, in less than 24 No hours Nausea/Vomiting Presence None All Four Quadrants Active Flatus Presence Present Genitourinary Assessment Genitourinary Symptoms None Bladder Pattern Normal Voiding Method Bedside Commode Bladder Distention None Suprapubic Tenderness with Palpation No Comment: no urine at this time Integumentary Assessment Nail Bed Appearance [place] Temperature Warm Moisture Dry Turgor Normal Color Normal All Pressure Points Assessed Yes Evidence of Incision/Wounds/Breakdown Yes: s/p L knee replacement healing inscision. Edges well aproximated. Integumentary Comment: No open wounds noted. Small scab noted to top of L knee inscision. No drainage. Open to air. Skin pink warm and dry . Musculoskeletal Assessment Musculoskeletal Symptoms Generalized Weakness Musculoskeletal Comment: lives alone states no needs Document 10/24/16 17:21 [facility] (Rec: 10/24/16 17:27 [facility] [id number]) Pain Assessment Pain Present Reports No Pain Neurological Assessment Eye Opening Spontaneous Motor Obeys Commands Verbal Oriented Coma Scale Total 15 Neurologic Status Alert Patient Orientation Person Place Time Arousable To Name Speech Pattern Normal rate Normal rhythm Normal tone Appropriate Clear Coherent Patient Behavior Appropriate Cooperative Mood Description Calm Relaxed Appropriate Bilateral Pupil Reaction Reactive Pupil Size (mm) 3 Pupil [place] Equal Embalmer Apprentice Strength Equal Push/Pull Equal Numbness/Tingling No Facial Symmetry Symmetrical Cardiovascular Assessment Signs and Symptoms Irregular Heart Rhythm Arrhythmia on Telemetry Heart Sounds S1 & S2 Pulse Rhythm Irregular Jugular Vein Distention None Capillary Refill < 3 Seconds Circulatory Tenderness Description None Right Radial 2+ Left Radial 2+ Right Dorsalis Pedis 2+ Left Dorsalis Pedis 2+ Has Confirmed Diagnosis of DVT, PE or No VTE VTE Prophylaxis PO Treatment Mechanical Prophylaxis No Cardiac Monitoring Heart Rate 82 Monitoring Method Telemetry Rhythm Atrial Fibrillation [place] Interval 0.17 QRS Interval 0.04 QT Interval 0.38 Monitor Number HW Strip placed in Chart Yes Respiratory Assessment Respiratory Symptoms None Effort Normal for Patient Depth Normal Respiratory Pattern Regular Chest Shape Normal Expansion Symmetrical All Lung [place] Clear Oxygen Delivery Method Room Air Cough Description None Sputum Amount None Gastrointestinal Assessment Abdomen Description Soft Non-Tender 3 or more loose stools, in less than 24 No hours Nausea/Vomiting Presence None All Four Quadrants Active Flatus Presence Present Genitourinary Assessment Genitourinary Symptoms None Bladder Pattern Normal Voiding Method Bedside Commode Urine Appearance Clear Color Dark Yellow Odor Normal Bladder Distention None Suprapubic Tenderness with Palpation No Comment: no urine at this time Integumentary Assessment Nail Bed Appearance [place] Temperature Warm Moisture Dry Turgor Normal Color Normal All Pressure Points Assessed Yes Evidence of Incision/Wounds/Breakdown Yes: s/p L knee replacement healing inscision. Edges well aproximated. Mucous membranes moist, pink and intact Yes Integumentary Comment: No open wounds noted. Small scab noted to top of L knee inscision from knee replacement surgery 3weeks ago . No drainage. Open to air. Skin pink warm and dry. Musculoskeletal Assessment Musculoskeletal Symptoms Generalized Weakness Document 10/24/16 19:30 [facility] (Rec: 10/24/16 19:41 Farhan [id number]) Pain Assessment Pain Present Reports No Pain Neurological Assessment Eye Opening Spontaneous Motor Obeys Commands Verbal Oriented Coma Scale Total 15 Neurologic Status Alert Patient Orientation Person Place Time Arousable To Name Speech Pattern Normal rate Normal rhythm Normal tone Appropriate Clear Coherent Patient Behavior Appropriate Cooperative Mood Description Calm Relaxed Appropriate Bilateral Pupil Reaction Reactive Pupil Size (mm) 3 Pupil [place] Equal Scleral Edema No Embalmer Apprentice Strength Equal Push/Pull Equal Numbness/Tingling No Facial Symmetry Symmetrical Cardiovascular Assessment Signs and Symptoms Irregular Heart Rhythm Heart Sounds S1 & S2 Pulse Rhythm Irregular Jugular Vein Distention None Capillary Refill < 3 Seconds Circulatory Tenderness Description None Right Radial 2+ Left Radial 2+ Right Dorsalis Pedis 2+ Left Dorsalis Pedis 2+ Has Confirmed Diagnosis of DVT, PE or No VTE VTE Prophylaxis PO Treatment Mechanical Prophylaxis No Respiratory Assessment Respiratory Symptoms None Effort Normal for Patient Spontaneous Non-Labored Depth Normal Respiratory Pattern Regular Chest Shape Normal Expansion Symmetrical All Lung [place] Clear Oxygen Delivery Method Room Air Cough Description None Gastrointestinal Assessment Abdomen Description Soft Non-Tender Round 3 or more loose stools, in less than 24 No hours Nausea/Vomiting Presence None All Four Quadrants Active Flatus Presence Present Genitourinary Assessment Genitourinary Symptoms None Bladder Pattern Normal Voiding Method Bedside Commode Bladder Distention None Suprapubic Tenderness with Palpation No Integumentary Assessment Nail Bed Appearance [place] Temperature Warm Moisture Dry Turgor Normal Color Normal All Pressure Points Assessed Yes Evidence of Incision/Wounds/Breakdown No: previous surgery to left knee, scab SOLUTION MAKER, no problems noted Mucous membranes moist, pink and intact Yes Oral Cavity Dentures Musculoskeletal Assessment Musculoskeletal Symptoms Generalized Weakness Document 10/25/16 04:05 [facility] (Rec: 10/25/16 04:09 Farhan [id number]) Pain Assessment Pain Present Reports No Pain Neurological Assessment Eye Opening Spontaneous Motor Obeys Commands Verbal Oriented Coma Scale Total 15 Neurologic Status Alert Patient Orientation Person Place Time Arousable To Name Speech Pattern Normal rate Normal rhythm Normal tone Appropriate Clear Coherent Patient Behavior Appropriate Cooperative Mood Description Calm Relaxed Appropriate Bilateral Pupil Reaction Reactive Embalmer Apprentice Strength Equal Push/Pull Equal Numbness/Tingling No Facial Symmetry Symmetrical Cardiovascular Assessment Signs and Symptoms Irregular Heart Rhythm Heart Sounds S1 & S2 Pulse Rhythm Irregular Jugular Vein Distention None Capillary Refill < 3 Seconds Circulatory Tenderness Description None Right Radial 2+ Left Radial 2+ Right Dorsalis Pedis 2+ Left Dorsalis Pedis 2+ Has Confirmed Diagnosis of DVT, PE or No VTE VTE Prophylaxis PO Treatment Mechanical Prophylaxis No Respiratory Assessment Respiratory Symptoms None Effort Normal for Patient Spontaneous Non-Labored Depth Normal Respiratory Pattern Regular Chest Shape Normal Expansion Symmetrical All Lung [place] Clear Oxygen Delivery Method Room Air Cough Description None Gastrointestinal Assessment Abdomen Description Soft Non-Tender Round 3 or more loose stools, in less than 24 No hours Nausea/Vomiting Presence None All Four Quadrants Active Flatus Presence Present Genitourinary Assessment Genitourinary Symptoms None Bladder Pattern Normal Voiding Method Bedside Commode Bladder Distention None Suprapubic Tenderness with Palpation No Integumentary Assessment Nail Bed Appearance [place] Temperature Warm Moisture Dry Turgor Normal Color Normal All Pressure Points Assessed Yes Evidence of Incision/Wounds/Breakdown No: previous surgery to left knee, scab [id number], no problems noted Mucous membranes moist, pink and intact Yes Oral Cavity Dentures Musculoskeletal Assessment Musculoskeletal Symptoms Generalized Weakness Document 10/25/16 08:25 [facility] (Rec: 10/25/16 08:29 [facility] [id number]) Pain Assessment Pain Present Reports No Pain Neurological Assessment Eye Opening Spontaneous Motor Obeys Commands Verbal Oriented Coma Scale Total 15 Neurologic Status Alert Patient Orientation Person Place Time Arousable To Name Speech Pattern Normal rate Normal rhythm Normal tone Appropriate Clear Coherent Patient Behavior Appropriate Cooperative Mood Description Calm Relaxed Appropriate Bilateral Pupil Reaction Reactive Embalmer Apprentice Strength Equal Push/Pull Equal Numbness/Tingling No Facial Symmetry Symmetrical Blink Present Cough/Gag Normal Doll's-Eye Absent Neurological Comment: Pt is pleasant and conversant. Cardiovascular Assessment Signs and Symptoms Irregular Heart Rhythm Heart Sounds S1 & S2 Pulse Rhythm Irregular Jugular Vein Distention None Capillary Refill < 3 Seconds Circulatory Tenderness Description None Right Radial 2+ Left Radial 2+ Right Dorsalis Pedis 2+ Left Dorsalis Pedis 2+ Chest Pain Complaint No Intensity (out of 10) 0 Has Confirmed Diagnosis of DVT, PE or No VTE VTE Prophylaxis PO Treatment Mechanical Prophylaxis No Cardiac Monitoring Heart Rate 87 Monitoring Method Telemetry Rhythm Atrial Fibrillation [place] Interval 0.18 QRS Interval 0.07 QT Interval 0.43 Monitor Number HW Strip placed in Chart Yes Respiratory Assessment Respiratory Symptoms None Effort Normal for Patient Spontaneous Non-Labored Depth Normal Respiratory Pattern Regular Chest Shape Normal Expansion Symmetrical All Lung [place] Clear Oxygen Delivery Method Room Air Cough Description None Sputum Amount None Gastrointestinal Assessment Abdomen Description Soft Non-Tender Round 3 or more loose stools, in less than 24 No hours Nausea/Vomiting Presence None All Four Quadrants Active Flatus Presence Present Genitourinary Assessment Genitourinary Symptoms None Bladder Pattern Normal Voiding Method Bedside Commode Urine Appearance Clear Color Dark Yellow Odor Normal Bladder Distention None Suprapubic Tenderness with Palpation No Comment: no urine at this time Integumentary Assessment Nail Bed Appearance [place] Temperature Warm Moisture Dry Turgor Normal Color Normal All Pressure Points Assessed Yes Evidence of Incision/Wounds/Breakdown No: previous surgery to left knee, scab SOLUTION MAKER, no problems noted Mucous membranes moist, pink and intact Yes Oral Cavity Dentures Integumentary Comment: No open wounds noted. Small scab noted to top of L knee inscision from knee replacement surgery 3weeks ago . No drainage. Open to air. Skin pink warm and dry. Musculoskeletal Assessment Musculoskeletal Symptoms Generalized Weakness Musculoskeletal Comment: lives alone states no needs Teaching Record Start: 10/23/16 21: 43 Freq: Q12H Status: Discharge Document 10/23/16 23:00 SMM (Rec: 10/24/16 03:55 SMM [id number]) Teaching Record: General Education Topics Medications Hospital Environment Response Verbalize understanding Methods Discussion Recipient Patient Education Provided: Details call light, cardizem gtt, fall precautions Document 10/24/16 08:43 [id number] (Rec: 10/24/16 08:45 [id number]) Teaching Record: General Education Topics Medications Hospital Environment Response Verbalize understanding Methods Discussion Recipient Patient Education Provided: Details am medications Document 10/24/16 19:30 Farhan (Rec: 10/24/16 19:41 [facility] [id number]) Teaching Record: General Education Topics Hospital Environment Response Verbalize understanding Methods Discussion Recipient Patient Education Provided: Details educted pt to use call light before getting up Document 10/25/16 08:25 [facility] (Rec: 10/25/16 08:29 [facility] [id number]) Teaching Record: General Education Topics Medications Disease Process Pertinence afib Response Verbalize understanding Methods Discussion Recipient Patient Education Provided: Details educated on medications and afib Thrombosis Risk Factor Assessment Start: 10/23/16 21: 43 Freq: .ONCE Status: Discharge Document 10/23/16 23:58 [facility]MM (Rec: 10/24/16 00:17 SMM [id number]) Thrombosis Risk Factor Assessment Each Risk Factor Represents 2 Points Age 60 - 74 years Each Risk Factor Represents 5 Points Elective major lower extremity arthoplasty Total Risk Factor Score 7 Risk Level Highest Risk Triage Start: 10/23/16 18: 45 Freq: Status: Complete Document 10/23/16 18:45 [facility] (Rec: 10/23/16 18:51 [facility]BF [id number]) Triage Chief Complaint triage ED Arrhythmia/Palpitations Patient Stated Complaint irregular HR/Low BP ALFREDO 2 Onset (ago) hour(s) Description of Symptoms patient states she feels like she is in Afib, drank water at home and not any better so her doctor [facility]. General Appearance alert Work Related Injury? No Mode of arrival wheelchair Source patient family Limitations no limitations Ebola Risk: Travel/Contact With Anyone No From Affected Area/s Has Patient Experienced Ebola Symptoms No Temperature (97.6 F-99.6 F) 97.7 F Temperature Source Oral Pulse Rate 111 Respiratory Rate 16 Blood Pressure 159/85 O2 Sat by Pulse Oximetry (95-100) 100 Oxygen Delivery Room Air Height 1.6 m Weight 57.153 kg Weight Measurement Method Stated by Patient Pain Scale 3 Pain Scale Used Standard (1-10) Medical history atrial fibrillation GERD hypertension Additional medical history PMH cardioversion x 4 anemia a fib Female surgical history knee replacement other Additional surgical history PMH lower back surgery, left Psychiatric history no psych history Smoking Status Never smoker Smokeless Tobacco Status No Alcohol Use none Drug Use none Patient resides with/at Alone Safety Concerns Feels Safe At This Time Do you currently feel hopless, have No thoughts of self harm, or thoughts of harming others History of fall in last 14 days? No RESIDENTIAL SERVICE TECHNICIAN history no RESIDENTIAL SERVICE TECHNICIAN history Coma Scale Eye Opening Spontaneous Coma Scale Motor Response Obeys Commands Coma Scale Verbal Response Oriented Coma Scale Total 15 Mother Adopted No Family Member Ethnicity Non- Family Member Living Status Hx Family Cardiac Disorders Yes Hx Family Respiratory Disorders No Hx Family Cancer No Hx Family GI Disease No Hx Family Endocrine Disorder No Hx Family Neuromuscular Dysfunction No Hx Family Neurologic Problems No Hx Family HEENT Problems No Hx Family Autoimmune Disease Problems Yes Vital Signs Assessment Start: 10/23/16 18: 45 Freq: Status: Discharge Document 10/23/16 20:00 NNN (Rec: 10/23/16 20:08 NNN [id number]) ED Vital Signs Pain Reported No Pain Reported Pain Scale 0 Blood Pressure 159/105 Pulse Rate 109 Respiratory Rate 16 Pulse Oximetry (95-100) 100 Oxygen Delivery Room Air Document 10/23/16 20:08 NNN (Rec: 10/23/16 20:09 NNN [id number]) ED Vital Signs Pain Reported No Pain Reported Pain Scale 0 Blood Pressure 135/80 Pulse Rate 88 Respiratory Rate 18 Pulse Oximetry (95-100) 100 Oxygen Delivery Room Air Vital Signs Assessment Start: 10/23/16 21: 43 Freq: Q4H Status: Discharge Document 10/23/16 22:15 WJS (Rec: 10/23/16 22:42 WJS [id number]) Vital Signs with MEWS Temperature (97.6 F-99.6 F) 97.8 F Temperature Source Oral Pulse Rate 88 Respiratory Rate 16 Pulse Oximetry (95-100) 99 Oxygen Delivery Room Air Blood Pressure 149/88 Blood Pressure Location Left Arm Source Automatic Cuff Position HOB Elevated Document 10/23/16 23:14 SMM (Rec: 03/04/17 23:15 SM [id number]) Vital Signs with MEWS Pulse Rate 80 Respiratory Rate 16 Pulse Oximetry (95-100) 96 Oxygen Delivery Room Air Blood Pressure 118/90 Blood Pressure Location Left Arm Source Automatic Cuff Position HOB Elevated Neuro Status *recalled from last Alert documentation Document 10/24/16 00:04 WJS (Rec: 10/24/16 00:08 WJS [id number]) Vital Signs with MEWS Temperature (97.6 F-99.6 F) 98.1 F Temperature Source Oral Pulse Rate 78 Respiratory Rate 16 Pulse Oximetry (95-100) 99 Oxygen Delivery Room Air Blood Pressure 132/86 Blood Pressure Location Left Arm Source Automatic Cuff Position HOB Elevated Document 10/24/16 04:42 WJS (Rec: 10/24/16 04:43 WJS [id number]) Vital Signs with MEWS Temperature (97.6 F-99.6 F) 98.4 F Temperature Source Oral Pulse Rate 69 Respiratory Rate 16 Pulse Oximetry (95-100) 98 Oxygen Delivery Room Air Blood Pressure 130/69 Blood Pressure Location Left Arm Source Automatic Cuff Position HOB Elevated Document 10/24/16 07:07 [id number] (Rec: 10/24/16 07:08 [id number]) Vital Signs with MEWS Temperature (97.6 F-99.6 F) 98.8 F Temperature Source Oral Pulse Rate 65 Respiratory Rate 15 Pulse Oximetry (95-100) 97 Oxygen Delivery Room Air Blood Pressure 132/86 Blood Pressure Location Left Arm Source Automatic Cuff Position Supine Document 10/24/16 11:14 [id number] (Rec: 10/24/16 11:15 [id number]) Vital Signs with MEWS Temperature (97.6 F-99.6 F) 97.9 F Temperature Source Oral Pulse Rate 88 Respiratory Rate 15 Pulse Oximetry (95-100) 98 Oxygen Delivery Room Air Blood Pressure 133/86 Blood Pressure Location Left Arm Source Automatic Cuff Position Sitting Document 10/24/16 15:40 [id number] (Rec: 10/24/16 15:40 [id number]) Vital Signs with MEWS Temperature (97.6 F-99.6 F) 97.9 F Temperature Source Oral Pulse Rate 85 Respiratory Rate 15 Pulse Oximetry (95-100) 98 Oxygen Delivery Room Air Blood Pressure 128/91 Blood Pressure Location Left Arm Source Automatic Cuff Position Sitting Document 10/24/16 20:02 WJS (Rec: 10/24/16 20:09 WJS [id number]) Vital Signs with MEWS Temperature (97.6 F-99.6 F) 97.3 F L Temperature Source Axillary Pulse Rate 90 Respiratory Rate 16 Pulse Oximetry (95-100) 97 Oxygen Delivery Room Air Blood Pressure 131/86 Blood Pressure Location Left Arm Source Automatic Cuff Position HOB Elevated Document 10/25/16 00:19 WJS (Rec: 10/25/16 00:23 WJS [id number]) Vital Signs with MEWS Temperature (97.6 F-99.6 F) 97.6 F Temperature Source Oral Pulse Rate 91 Respiratory Rate 16 Pulse Oximetry (95-100) 98 Oxygen Delivery Room Air Blood Pressure 135/90 Blood Pressure Location Left Arm Source Automatic Cuff Position HOB Elevated Document 10/25/16 05:14 WJS (Rec: 10/25/16 05:20 WJS [id number]) Vital Signs with MEWS Temperature (97.6 F-99.6 F) 98.3 F Temperature Source Oral Pulse Rate 81 Respiratory Rate 18 Pulse Oximetry (95-100) 97 Oxygen Delivery Room Air Blood Pressure 152/101 Blood Pressure Location Left Arm Source Automatic Cuff Position HOB Elevated Document 10/25/16 06:14 Farhan (Rec: 10/25/16 06:15 Farhan [id number]) Vital Signs with MEWS Blood Pressure 147/91 Blood Pressure Location Left Arm Source Automatic Cuff Position HOB Elevated Document 10/25/16 07:18 JAB (Rec: 10/25/16 07:21 JAB [id number]) Vital Signs with MEWS Temperature (97.6 F-99.6 F) 98.2 F Temperature Source Oral Pulse Rate 86 Respiratory Rate 16 Pulse Oximetry (95-100) 98 Oxygen Delivery Room Air Blood Pressure 143/90 Blood Pressure Location Left Arm Source Automatic Cuff Position HOB Elevated Neuro Status *recalled from last Alert documentation MEWS Score 1 Wound Assessment Start: 10/23/16 21: 43 Freq: Q8H Status: Discharge Document 10/23/16 23:00 SMM (Rec: 10/24/16 03:55 SMM [id number]) Wound Assessment Left Anterior Knee Wound Type Surgical Wound Wound Bed Appearance [place] Wound Surrounding Tissue Appearance ( Dry Periwound) 1 Intact Surrounding Tissue Temperature Warm Wound Drainage Amount 1 None Wound Dressing Status Open to Air Document 10/24/16 03:30 SMM (Rec: 10/24/16 08:42 SMM [id number]) Wound Assessment Left Anterior Knee Wound Type Surgical Wound Wound Length (cm) 14 Wound Width (cm) 0.5 Wound Bed Appearance [place] Wound Surrounding Tissue Appearance ( Dry Periwound) 1 Intact Surrounding Tissue Temperature Warm Wound Drainage Amount 1 None Wound Dressing Status Open to Air Document 10/24/16 08:43 [id number] (Rec: 10/24/16 08:45 [id number]) Wound Assessment Left Anterior Knee Wound Type Surgical Wound Wound Bed Appearance [place] Wound Surrounding Tissue Appearance ( Dry Periwound) 1 Intact Surrounding Tissue Temperature Warm Wound Drainage Amount 1 None Wound Dressing Status Open to Air Document 10/24/16 19:30 Farhan (Rec: 10/24/16 19:41 Farhan [id number]) Wound Assessment Left Anterior Knee Wound Type previous surgery, pt has only a scab to knee Wound Bed Appearance [place] Wound Surrounding Tissue Appearance ( Dry Periwound) 1 Surrounding Tissue Temperature Warm Wound Drainage Amount 1 None Wound Dressing Type Open to air Document 10/25/16 04:05 Farhan (Rec: 10/25/16 04:09 Farhan [id number]) Wound Assessment Left Anterior Knee Wound Type previous surgery, pt has scab Wound Bed Appearance [place] Wound Surrounding Tissue Appearance ( Dry Periwound) 1 Surrounding Tissue Temperature Warm Wound Drainage Amount 1 None Wound Dressing Status Open to Air Discharge Information ED Provider: Claudio Simon Status: Departed Time Seen by Provider: 10/23/16 18:58 Condition: Good Triaged At: Emergency Discharge Date/Time: 10/23/16 21:33 Emergency Discharge Disposition: Admitted As Inpatient Clinical Impression Atrial fibrillation with RVR Emergency Discharge Comment: Admit Intervention Last Done ED Arrhythmia Assessment 10/23/16 18:51 Query Result Arrhythmia Symptoms/Complaint Rapid Heart Beat Irregular Heart Beat Arrhythmia/Palpations Onset 3 weeks Arrhythmia/Palpations Duration Constant Arrhythmia/Palpations Severity Moderate Arrhythmia/Palpations Context Unknown Arrhythmia/Palpation History Atrial Fibrillation On Anti-Coagulants Hx Electrical Cardiovers Arrhythmia/Palpation Associated Symptoms Chest Pain Nausea Chest Pain Intensity 3 Chest Pain Description Tightness Chest Pain Radiation Location Back Level Of Consciousness Awake Alert Patient Orientation Person Place Time Name Age Date of Day of Month Day of Week Month Year Time of Day Skin Temperature Warm Skin Moisture Dry Skin Turgor Elastic Respiratory Depth Normal Respiratory Effort Normal for Patient Respiratory Pattern Regular Nausea/Vomiting Presence Nauseated Anxiety Level No Symptoms or Sensations Anxiety Associated Symptoms Denies Other Symptoms ED Discharge Assessment 10/23/16 21:14 Query Result ED Discharge Disposition Admitted ED Condition on Discharge Fair Med Rec/Patient Phamracy completed? No ED Admit to 2NE Bed assigned [id number] Transported by animal technician Transported with monitor IV Report given to Nurse Care transferred to supplier specialist Information relayed patient's care treatments medications given condition recent/anticipated change Clinical Documentation Summary Provided Yes Severity scale (1-10) 0 Pain Scale Used Standard (1-10) Blood Pressure 146/93 Heart rate 89 Respiratory Rate 18 Oxygen Delivery Room Air Pulse Oximetry Reading 100 Critical Care Minutes 0 Inpatient Discharge Date/Time: 10/25/16 14:02 Inpatient Discharge Disposition: Home, Self-Care Inpatient Discharge Comment: Instructions: Warfarin (By mouth) Atrial Fibrillation (DC) Chest Pain (DC) Urinary Tract Infection in Women (DC) Stand-Alone Forms: Prescriptions: Nitrofurantoin (BID) [Macrobid] Florence Dent Visit Report - Forms: - Referrals: Ashwin Muñoz MD (Partnered Physician) - 10/26/16 10: 35 am Armando Mendiola MD (Partnered Physician) Eduardo Floyd DO (Primary Care Provider) - 11/02/16 12 :00 pm - Additional text: F/up with [facility]- in 1-2 weeks Radiology Results Chest X-Ray 10/23/16 18:58 IMPRESSION: No acute cardiopulmonary disease. Hiatal hernia. D/ / 10/23/2016 19:30:52 Jamie Leonard MD / bcarter Interpreting Provider: Jamie Leonard MD
[2016-10-24 04:13] LABS: INR 2.3; Prothrombin Time 25.4 Seconds (9.4-12.1); VBG HCO3 31.2 mEq/L (21-27); VBG PH 7.43 pH Units (7.32-7.42)
[2016-10-24 04:15] LABS: Activated Partial Thrombo Time 30.1 Seconds (26.0-36.0)
[2016-10-24 04:23] LABS: Alanine Aminotransferase 13 Units/L (0-55); Albumin 2.7 g/dL (3.5-5.0); Alkaline Phosphatase 56 Units/L (38-126); Aspartate Amino Transferase 20 Units/L (5-34); BUN/Creatinine Ratio 10 (6-26); Bilirubin,Total 0.7 mg/dL (0.2-1.2); Blood Urea Nitrogen 8 mg/dL (7-20); Carbon Dioxide 25 mEq/L (19-29); Chloride 110 mEq/L (98-109); Chol/HDL Ratio 2.7 (0-4.9); Cholesterol 132 mg/dL (< 200); Globulin 2.8 g/dL (2.4-3.5); Glucose 97 mg/dL (70-99); HDL Cholesterol 49 mg/dL (40-59); LDL Cholesterol,Calculated 66 mg/dL (0-99); Osmolality,Calculated 294 (280-300); Phosphorous 3.3 mg/dL (2.3-4.7); Potassium 3.4 mEq/L (3.5-4.5); Sodium 143 mEq/L (136-145); Total Protein 5.5 g/dL (6.0-8.3); Triglycerides 85 mg/dL (< 150); eGFR For African Americans > 60 (> 60); eGFR For Non-African Americans > 60 (> 60)
[2016-10-24 04:24] LABS: Ionized Calcium 1.18 mmol/L (1.15-1.35)
[2016-10-24 04:40] LABS: Triiodothyronine (T3) Free 2.51 pg/mL (1.71-3.71)
[2016-10-24] MEDS ORDERED: Potassium Chloride Elixir 20 MEQ/15 ML UDC GTUBE ONE (06:18)
[2016-10-24] MEDS ORDERED: Potassium Chloride 20 MEQ, Lidocaine 1% 2 ML in D5% in Water 250 ML IVPB ONE (06:18)
--- NOTE | 2016-10-24 08:01 | Cardiology Consult Note ---
<Lance Dhillon R - Last Filed: 10/24/16 10:26> Date of Encounter: 10/24/16 Time of Encounter: 08:15 Assessment and Plan (1) Atrial fibrillation with RVR Current Visit: Yes Status: Acute Per Cardiology: History of symptomatic paroxysmal atrial fibrillation with failed antiarrhythmic therapy of flecainide, sotalol, Tikosyn, and amiodarone. On beta jodee of Toprol-XL 25 mg by mouth daily at home. Will resume home regimen. Currently rate controlled in the 70s, however remains A. fib. Not currently on IV Cardizem drip. Continue with rate control strategy for now. Patient interested in discussion with electrophysiology regarding potential ablation. Regarding long-term anticoagulation, anticoagulated with Coumadin followed by [facility]. Current INR 2.3. Denies any active bleeding or blood loss (2) Chest pain, rule out acute myocardial infarction Current Visit: Yes Status: Acute Per Cardiology: Troponins negative 3. Currently chest pain-free. Negative stress test in September 2014. Heart catheterization October 2011 showed mild obstructive CAD with proximal LAD 20% and diagonal 1 20% stenosis. Echo pending. Suspect symptoms caused by her A. fib with RVR. (3) Hypokalemia Current Visit: Yes Status: Acute Per Cardiology: Replaced by primary service. Continue to monitor. (4) Anticoagulated on Coumadin Current Visit: Yes Status: Chronic Per Cardiology: On Coumadin, therapeutic INR. Discussion w patient/family: The assessment and plan as outlined above was discussed with the patient who expressed understanding and agreement. All questions were answered. Thank you for involving us in the care of your patient. Please call with any questions. Discussed and reviewed with Dr. Colón. History of Present Illness Consult date: 10/24/16 Requesting physician: Francis Murphy Consult reason: Afib Chief complaint: "Afib", rapid heart rate History of present illness: Ms. Sabillon is a very pleasant 71 year old female well known to cardiology within relevant past medical history of hyperlipidemia, iron deficiency anemia, hypertension, paroxysmal atrial fibrillation with failed antiarrhythmic therapy and on Coumadin for anticoagulation, GERD, mild nonobstructive CAD. Patient reports recent left knee surgery about one month ago. Reports episode of diarrhea with GI upset about 2-3 weeks ago. Reports over the past one week has noted blood pressures running on the lower side and recently stopped Norvasc as directed by her primary product scientist Dr. Perez. Also noticed heart rates running in the 100s to 110s. She reports she called in yesterday with concerns of her typical symptoms of anxiousness, lightheadedness, shortness of breath. She denies any chest pain. Denies any current fever, chills, nausea, vomiting, diarrhea, cough. Denies any current UTI symptoms. Reports recent deaths in her family of her , [id number], and sister over the past 6 months. Past Med Surg Social Fam HX - Past Medical History Attestation: Yes The following information was validated with the patient. Source: patient, old records reviewed Medical history: arthritis, atrial fibrillation, GERD, GI bleed, hypertension, osteoporosis, RA Psychiatric history: no psych history - Past Surgical History Surgical History: hysterectomy, knee replacement - Social History Smoking Status: Never smoker Smokeless Tobacco Status: No Alcohol use: none Drug use: none - Family History Father Living Status: Age at : 62 Cause of : Heart attack Hx Family Cardiac Disorders: Yes Mother Adopted: No Family Member Ethnicity: Non- Living Status: Age at : 72 Cause of : Heart attack Hx Family Cardiac Disorders: Yes Hx Family Respiratory Disorders: No Hx Family Cancer: No Hx Family GI Disorders: No Hx Family Endocrine Disorder: Yes (DM) Hx Family Neuromuscular Disorders: No Hx Family Neurologic Disorders: No Hx Family HEENT Disorders: No Hx Family Autoimmune Disorders: Yes Medications and Allergies Alendronate Sodium [Fosamax] 70 mg PO FR 11/18/15 [History] Hydrochlorothiazide 12.5 mg PO QAM 11/18/15 [History] Lovastatin [Mevacor] 20 mg PO HS 11/18/15 [History] Metoprolol XL (24 HR) Succ [Toprol XL] 25 mg PO QAM 11/18/15 [History] Omeprazole [PriLOSEC] 20 mg PO QAM 11/18/15 [History] PredniSONE 5 mg PO QAM 11/18/15 [History] Warfarin [Coumadin] 2.5 mg PO Q48H 11/18/15 [History] OxyCODONE Immed Rel [Roxicodone 5 MG] 5 - 10 mg PO Q6HR PRN #40 tablet 09/28/16 [Rx] Amlodipine Besylate 2.5 mg PO HS 09/29/16 [History] Enoxaparin [Lovenox] 30 mg SQ Q12HR 09/29/16 [History] Warfarin [Coumadin] 5 mg PO Q48H 09/29/16 [History] Allergies codeine Allergy (Verified 09/29/16 11:47) Dizziness albuterol Adverse Reaction (Verified 09/29/16 11:47) Blisters in mouth cephalexin [From Keflex] Adverse Reaction (Verified 09/29/16 11:47) blisters in mouth levofloxacin Adverse Reaction (Verified 09/29/16 11:47) patient unsure of reaction All Systems Review: A 10-system review of systems was performed and is negative for pertinent findings except as documented above in the HPI. - Cardiovascular Cardiovascular: as per HPI, dyspnea at rest, irregular heart rhythm, lightheadedness, palpitations, rapid heart rate Physical Examination Vital Signs, Last 4 Hours Temp Pulse Resp BP Pulse Ox 10/24/16 07:07 98.8 F 65 15 132/86 97 10/24/16 04:42 98.4 F 69 16 130/69 98 General: Conversant, No Apparent Distress HEENT: Atraumatic, Normocephaly, Mucus Membranes Moist Neck: No JVD, Normal carotid pulses Cardiac: No Murmur, Other (Irregularly irregular) Lungs: Normal Breath Sounds, No Wheeze, Rales, Rhonchi Neuro: Alert and responsive, No focal deficits noted Skin: No rashes noted on visualized skin Musculoskeletal: No Chest Wall Tenderness Extremities: No Edema, Normal Pulses Results 10/23/16 18:30 10/24/16 03:31 Lab Results Laboratory Tests 04/24/15 04/24/15 10/23/16 07:20 07:20 18:30 INR 1.84 Potassium 3.0 L Creatinine 0.75 Est GFR ( Amer) > 60 Magnesium AST ALT Troponin I B-Natriuretic Peptide TSH 2.362 Free T4 Free T3 Urine Nitrite Ur Squamous Epith Cells Urine Bacteria Ur Culture Indicated? 10/23/16 10/23/16 10/23/16 18:30 19:57 21:58 INR Potassium Creatinine Est GFR ( Amer) Magnesium AST ALT Troponin I 0.02 0.02 B-Natriuretic Peptide TSH Free T4 Free T3 Urine Nitrite Positive A Ur Squamous Epith Cells Moderate H Urine Bacteria Many H Ur Culture Indicated? YES A 10/24/16 10/24/16 10/24/16 03:31 03:31 03:31 INR 2.3 Potassium 3.4 L Creatinine Est GFR ( Amer) Magnesium 2.0 AST 20 ALT 13 Troponin I 0.02 B-Natriuretic Peptide TSH Free T4 Free T3 Urine Nitrite Ur Squamous Epith Cells Urine Bacteria Ur Culture Indicated? 10/24/16 10/24/16 03:31 03:31 INR Potassium Creatinine Est GFR ( Amer) Magnesium AST ALT Troponin I B-Natriuretic Peptide 193 H TSH Free T4 1.14 Free T3 2.51 Urine Nitrite Ur Squamous Epith Cells Urine Bacteria Ur Culture Indicated? ITS Impressions Chest X-Ray 10/23/16 18:58 IMPRESSION: No acute cardiopulmonary disease. Hiatal hernia. D/ / 10/23/2016 19:30:52 Jamie Leonard MD / bcarter Interpreting Provider: Jamie eLonard MD Intake & Output 10/21/16 10/22/16 10/23/16 10/24/16 23:59 23:59 23:59 23:59 Intake Total 0 / 0 267.2 / 267.2 Output Total 300 / 300 Balance 0 / 0 -32.8 / -32.8 Weight 56.4 kg Active Medications Acetaminophen (Tylenol) 650 mg PO Q6HR PRN PRN Reason: Mild Pain (1-3) Stop: 04/24/17 21:35 Aspirin (Aspirin) 81 mg PO DAILY ELVIN Stop: 04/25/17 09:01 Docusate Sodium (Colace) 100 mg PO BID ELVIN Stop: 04/25/17 09:01 Sodium Chloride (0.9 % Sodium Chloride) 1,000 mls @ 75 mls/hr IV CONT ELVIN Stop: 04/24/17 21:38 Last Admin: 10/23/16 22:59 Dose: 75 mls/hr Diltiazem HCl 125 mg/ Dextrose 125 mls @ 5 mls/hr IVC .Q24H ELVIN; 5 MG/HR PRN Reason: Protocol Stop: 04/24/17 19:31 Last Titration: 10/24/16 05:50 Dose: 2.5 mg/hr, 2.5 mls/hr Aztreonam 1,000 mg/ Dextrose 100 mls @ 200 mls/hr IVPB Q8HR [facility] Stop: 04/25/17 08:01 Potassium Chloride 20 meq/ (Lidocaine 2 ml/ Dextrose) 262 mls @ 131 mls/hr IVPB ONCE ONE Stop: 10/24/16 08:17 Metoprolol Tartrate (Lopressor) 5 mg IVP Q6HR PRN PRN Reason: SEE COMMENTS Stop: 04/24/17 21:35 Morphine Sulfate (Morphine Sulfate) 2 mg IVP Q4HR PRN PRN Reason: Severe Pain (7-10) Stop: 04/24/17 21:35 Naloxone HCl (Narcan) 0.4 mg IVP Q2MIN PRN PRN Reason: Opioid Reversal Stop: 04/24/17 21:35 Omeprazole (Prilosec) 20 mg PO DAILY@0630 [facility] PRN Reason: Protocol Stop: 04/25/17 06:31 Last Admin: 10/24/16 05:54 Dose: 20 mg Ondansetron HCl (Zofran) 4 mg IVP Q8HR PRN PRN Reason: Nausea And Vomiting Stop: 04/24/17 21:35 Oxycodone HCl (Roxicodone) 5 mg PO Q6HR PRN PRN Reason: Moderate Pain (4-6) Stop: 04/24/17 21:35 Prednisone (Prednisone) 5 mg PO QAM [facility] Stop: 04/25/17 09:01 Warfarin Sodium (Coumadin Perpt) 1 each PO DAILY@1800 PRN PRN Reason: SEE COMMENTS Stop: 04/25/17 18:01 Warfarin Sodium (Coumadin) 5 mg PO QD@1800 [facility] Stop: 04/25/17 18:01 - Imaging and Cardiology Chest Xray: report reviewed Echo: pending - EKG Interpretation EKG results cardiology: personally reviewed (A. fib with RVR in the low 100s), other (24-hour telemetry reviewed with average heart rate 78, A. fib noted, currently A. fib in the 70s.) Consult Discharge Plan - Plan Referrals: Eduardo Floyd, DO [Primary Care Provider] - <Moises Colón - Last Filed: 10/24/16 11:38> Date of Encounter: 03/05/17 Assessment and Plan Discussion w patient/family: The assessment and plan as outlined above was discussed with the patient and/or family members who expressed understanding and agreement. All questions were answered. Thank you for involving us in the care of your patient. Please call with any questions. History of Present Illness History of present illness: Ms. Sabillon is a 71 year old female All Systems Review: A 10-system review of systems was performed and is negative for pertinent findings except as documented above in the HPI. Physical Examination Vital Signs, Last 4 Hours Temp Pulse Resp BP Pulse Ox 10/24/16 11:14 97.9 F 88 15 133/86 98 10/24/16 08:43 100 10/24/16 08:41 100 Results 10/23/16 18:30 10/24/16 03:31 Lab Results 10/23/16 10/24/16 10/24/16 21:58 03:31 03:31 INR 2.3 APTT 30.1 Sodium Potassium Chloride Carbon Dioxide BUN Creatinine Glucose Calcium Magnesium Total Bilirubin AST ALT Alkaline Phosphatase Troponin I 0.02 0.02 B-Natriuretic Peptide 10/24/16 10/24/16 10/24/16 03:31 03:31 09:31 INR APTT Sodium 143 Potassium 3.4 L Chloride 110 H Carbon Dioxide 25 BUN 8 Creatinine 0.80 Glucose 97 Calcium 8.0 L Magnesium 2.0 Total Bilirubin 0.7 AST 20 ALT 13 Alkaline Phosphatase 56 Troponin I 0.01 B-Natriuretic Peptide 193 H - Attending Attestation Patient was seen examined and agree with plan as outlined Patient is fairly symptomatic with Afib RVR. Failed multiple meds and treatment. Echo today shows a markedly dilated LV with normal EF. Recs Continue A/c Rate control for today - consider Advanced rhythm therapies with EP tomorrow. Thanks for consult.
[2016-10-24] MEDS: Aztreonam 1,000 MG in D5% in Water (Mini-Bag+) 100 ML IVPB SCH ×2 (08:25→15:43)
[2016-10-24] MEDS: Aspirin 81 MG TAB.CHEW PO SCH (08:25)
[2016-10-24] MEDS: predniSONE 5 MG TABLET PO SCH (08:25)
--- NOTE | 2016-10-24 08:26 | Internal Med Progress Note ---
Date of Encounter: 10/24/16 Time of Encounter: 08:25 - Assessment and plan (1) Chest pain Current Visit: Yes Status: Acute Assessment and plan: Resolved now. Likely related to tachycardia. Serial troponins remain negative. Qualifiers: Chest pain type: precordial pain Qualified Code(s): R07.2 - Precordial pain (2) Atrial fibrillation with RVR Current Visit: Yes Status: Acute Assessment and plan: Currently rate controlled. Has been on low-dose of IV Cardizem drip. Plan to taper it off and start low-dose of oral metoprolol. Patient was recently taken off her Norvasc and dose of metoprolol was decreased due to symptomatic hypotension at home. Monitor vital signs closely. Continue long-term anticoagulation with Coumadin, INR is noted to be therapeutic. Follow up cardiology consult. Follow-up echocardiogram. (3) HTN (hypertension) Current Visit: Yes Status: Chronic Assessment and plan: Blood pressure currently well controlled. Continue to hold Norvasc and start low-dose of metoprolol. Monitor closely. Qualifiers: Hypertension type: essential hypertension Qualified Code(s): I10 - Essential (primary) hypertension (4) Osteoarthritis involving multiple joints on both sides of body Current Visit: Yes Status: Chronic Assessment and plan: Had left knee replacement recently. Continue outpatient physical therapy. Continue low-dose prednisone. - Subjective Interval history: Reports feeling better. Improved chest pain and palpitations. No dizziness, nausea, shortness of breath. - Constitutional Vitals: Temp Pulse Resp BP Pulse Ox 98.8 F 65 15 132/86 97 10/24/16 07:07 10/24/16 07:07 10/24/16 07:07 10/24/16 07:07 10/24/16 07:07 General appearance: Present: A&O X 3, answers questions appropriately - Head Head exam: Present: atraumatic, normocephalic - Neck Neck exam general surgery: Present: supple, trachea midline. Absent: lymphadenopathy - Respiratory Respiratory exam: Present: CTAB. Absent: accessory muscle use, rales, rhonchi, wheezes - Cardiovascular Cardiovascular exam: Present: irregular rhythm, +S1, +S2. Absent: diastolic murmur, gallop, rubs, systolic murmur - GI/Abdominal GI/Abdominal exam: Present: normal bowel sounds, soft, no peritoneal signs. Absent: distended, tenderness - Extremities Exam Extremities exam: Present: full ROM, normal inspection (Status post left knee replacement. Surgical incision healing well, dry bloody scab at the proximal end. No signs of infection.), warm, radial pulses palpable and symetrical. Absent: calf tenderness, cyanotic, pedal edema - Neurological Exam Neurological exam: Present: CN II-XII intact, oriented X3, no focal deficits. Absent: pronater drift, facial droop, speech deficit - Skin Skin exam: Present: dry, intact Internal Medicine: Result - Labs CBC & Chem 7: 10/23/16 18:30 10/24/16 03:31 Labs: BMP 10/24/16 03:31 Sodium 143 Potassium 3.4 L Chloride 110 H Carbon Dioxide 25 BUN 8 Creatinine 0.80 Glucose 97 Calcium 8.0 L Cardiac Enzymes 10/23/16 10/24/16 Range/Units 21:58 03:31 Troponin I 0.02 0.02 (0-0.03) ng/mL Liver Function 10/24/16 Range/Units 03:31 Total Bilirubin 0.7 (0.2-1.2) mg/dL AST 20 (5-34) Units/L ALT 13 (0-55) Units/L Alkaline Phosphatase 56 (38-126) Units/L Albumin 2.7 L (3.5-5.0) g/dL - ABG Interpretation ABG results: PT/INR, D-dimer PT 25.4 Seconds (9.4-12.1) H 10/24/16 03:31 Consult Discharge Plan - Plan Referrals: Eduardo Floyd DO [Primary Care Provider] -
[2016-10-24] MEDS: Metoprolol XL (24 HR) Succ 25 MG TAB.ER.24H PO SCH (10:34)
--- NOTE | 2016-10-24 10:50 | ECHO - Doppler Report ---
Echocardiogram Name: Juan Luis Sabillon Date of Study: 10/24/2016 Date: 1945 Ht: 63.0 in Medical Record#: [id number] Age: 71 Wt: 124.0 lb Gender: Female BSA: 1.58 Order #: [id number] Location: [facility] Room #: 2NE17 Reading Physician: Maximino Schuster MD, [facility] Data Warehouse Architect: Caren Iniguez Ordering Physician: Francis Murphy MD Primary Physician: Eduardo Floyd DO Indications: AFIB RVR Impressions: LVEF 55-60%. Severely dilated left atrium. Mild pulmonary hypertension. No segmental dysfunction. No significant valvular dysfunction. Left Ventricular Wall Motion: Rest Echo Findings All wall segments showed normal motion. Findings: ECG Findings * Atrial fibrillation. Mitral Valve * No mitral stenosis. * Trace mitral regurgitation. * Mild mitral annular calcification Left Atrium * Severely dilated left atrium. Tricuspid Valve * Estimated RVSP is 39 mmHg. * Estimated RA pressure is 3-5 mmHg. * Mild pulmonary hypertension. * No tricuspid stenosis. * Mild tricuspid regurgitation. Pulmonic Valve * No pulmonic stenosis. * Mild pulmonic regurgitation. * Pulmonic valve is not well visualized. Aortic Valve * No aortic stenosis. * No aortic regurgitation. * Aortic valve not well visualized. Left Ventricle * LVEF 55-60%. * No segmental dysfunction. * Indeterminate diastolic function. Aorta * Normally sized aortic root. IVC * Normal IVC dimensions and inspiratory collapse. History Hypertension Hypercholesteremia Family History of CAD 10/03/2014 a Previous Echo was performed. Measurements: BP: 130/ 69 2D Normal Values RVIDd: 2.10 cm <2.7 cm IVSd: .90 cm 0.6 - 1.0 cm LVIDd: 4.50 cm 3.7 - 5.6 cm LVPWd: 1.00 cm 0.6 - 1.1 cm LVIDs: 3.00 cm 1.5 - 3.6 cm AO: 2.40 cm < 4.0 cm LA: 5.30 cm 2.0 - 4.0cm %FS: 33.30 cm >25 % LA volume: 109 Mitral Valve Peak E:1.00 m/sec Peak E' Lat Kash:12 cm/s Peak E' Med Kash:7.9 cm/s E/E' Lat Ratio:8.3 E/E' Med Ratio:12.7 Tricuspid Valve TV Regurg Peak Grad: 39.00mmHg TV Regurg Peak Kash: 3.11m/sec Updated by Maximino Schuster MD, [facility] on 10/24/2016 10:44:20 AM electronically signed on 10/24/2016 10:44:33 AM with status of Final Wall Motion Acstelan: 1=Normal, 2=Hypokinesis, 3=Akinesis, 4=Dyskinesis, 5=Aneurysmal, 6=Hyperkinetic, X=Not Visualized (Blank)=Missing
[2016-10-24] MEDS ORDERED: *HR* Warfarin 2 MG TABLET PO SCH (18:00)
[2016-10-24] MEDS ORDERED: *HR* Warfarin 5 MG TABLET PO SCH ×2 (18:00)
[2016-10-24] MEDS ORDERED: Warfarin perPT PO PRN (18:00)
[2016-10-24] MEDS: 0.9 % Sodium Chloride 1,000 ML IV SCH (21:47)
[2016-10-25] MEDS: Aztreonam 1,000 MG in D5% in Water (Mini-Bag+) 100 ML IVPB SCH ×2 (00:19→08:19)
[2016-10-25 06:48] LABS: Prothrombin Time 21.9 Seconds (9.4-12.1)
[2016-10-25 06:51] LABS: Activated Partial Thrombo Time 28.1 Seconds (26.0-36.0)
[2016-10-25 07:04] LABS: BUN/Creatinine Ratio 10 (6-26); Blood Urea Nitrogen 8 mg/dL (7-20); Calcium 7.9 mg/dL (8.6-10.8); Carbon Dioxide 23 mEq/L (19-29); Chloride 112 mEq/L (98-109); Glucose 81 mg/dL (70-99); Osmolality,Calculated 293 (280-300); Potassium 3.7 mEq/L (3.5-4.5); Sodium 143 mEq/L (136-145); eGFR For African Americans > 60 (> 60); eGFR For Non-African Americans > 60 (> 60)
--- NOTE | 2016-10-25 07:20 | Electrocardiograph Report ---
[place] [id number] Test Date: 2016-10-23 Pat Name: Juan Luis Sabillon Department: 105 Room: 2NE17 Gender: F Application Administrator: : 1945 Requested By: Carlo Farah Order Number: [id number] Reading MD: Maximino Schuster MD Measurements Intervals [place] Rate: 100 P: [place]: 0 QRS: 17 QRSD: 104 T: 18 QT: 362 QTc: 419 Interpretive Statements ATRIAL FIBRILLATION WITH RAPID VENTRICULAR RESPONSE WITH ABERRANT CONDUCTION OR VENTRICULAR PREMATURE COMPLEXES Electronically Signed On 10-25-2016 7:19:07 EST by Maximino Schuster MD
[2016-10-25 07:21] VITALS: BP 143/90
--- NOTE | 2016-10-25 07:57 | Cardiology Progress Note ---
Date of Encounter: 10/25/16 Time of Encounter: 08:00 Assessment and Plan (1) Atrial fibrillation with RVR Current Visit: Yes Status: Acute Per Cardiology: History of symptomatic paroxysmal atrial fibrillation with failed antiarrhythmic therapy of flecainide, sotalol, Tikosyn, and amiodarone. On beta jodee of Toprol-XL 25 mg by mouth daily (home dose) Currently rate controlled in the 80s, however remains A. fib. Continue with rate control strategy for now. Discussed with Dr. Perez and Dr. Armando Mendiola, cardiology will sign off, reconsult as needed, follow up scheduled in A. fib clinic with Dr. Mendiola for discussion of possible procedural intervention. All questions answered. Discussed with hospitalist service as well. Regarding long-term anticoagulation, anticoagulated with Coumadin followed by [facility]. Current INR 2.0. Denies any active bleeding or blood loss. (2) Chest pain, rule out acute myocardial infarction Current Visit: Yes Status: Acute Per Cardiology: Troponins negative 3. Currently chest pain-free. Negative stress test in September 2014. Heart catheterization October 2011 showed mild obstructive CAD with proximal LAD 20% and diagonal 1 20% stenosis. Echo shows EF preserved 55-60 %, no significant valvular dysfunction, no segment wall motion abnormalities, severely dilated left atrium.. Suspect symptoms caused by her A. fib with RVR. (3) Hypokalemia Current Visit: Yes Status: Acute Per Cardiology: Replaced by primary service-- improved to 3.7. No ventricular arrhythmias noted. Continue to monitor. (4) Anticoagulated on Coumadin Current Visit: Yes Status: Chronic Per Cardiology: On Coumadin, therapeutic INR. Discussion w patient/family: The assessment and plan as outlined above was discussed with the patient who expressed understanding and agreement. All questions were answered. Thank you for involving us in the care of your patient. Please call with any questions. Subjective Principal diagnosis: Afib RVR Interval history: Patient denies any chest pain, shortness of breath, palpitations. Denies any concerns over night other than mild blood pressure elevations. Reports left knee improving. Objective Vital Signs, Last 4 Hours Temp Pulse Resp BP Pulse Ox 10/25/16 07:18 98.2 F 86 16 143/90 98 10/25/16 06:14 147/91 10/25/16 05:14 98.3 F 81 18 152/101 97 General: Conversant, No Apparent Distress Cardiac: No Murmur, Other (Irregularly irregular) Lungs: Normal Breath Sounds, No Wheeze, Rales, Rhonchi Neuro: Alert and responsive, No focal deficits noted Skin: Other (Left knee incision site well approximated, no erythema, no drainage ) Extremities: No Edema Results 10/23/16 18:30 10/25/16 05:49 Lab Results Laboratory Tests 10/25/16 05:49 INR 2.0 Active Medications Acetaminophen (Tylenol) 650 mg PO Q6HR PRN PRN Reason: Mild Pain (1-3) Stop: 04/24/17 21:35 Aspirin (Aspirin) 81 mg PO DAILY [facility] Stop: 04/25/17 09:01 Last Admin: 10/24/16 08:25 Dose: 81 mg Docusate Sodium (Colace) 100 mg PO BID [facility] Stop: 04/25/17 09:01 Last Admin: 10/24/16 21:45 Dose: 100 mg Sodium Chloride (0.9 % Sodium Chloride) 1,000 mls @ 75 mls/hr IV CONT [facility] Stop: 04/24/17 21:38 Last Admin: 10/24/16 21:47 Dose: 75 mls/hr Aztreonam 1,000 mg/ Dextrose 100 mls @ 200 mls/hr IVPB Q8HR [facility] Stop: 04/25/17 08:01 Last Infusion: 10/25/16 05:21 Dose: Infused Metoprolol Succinate (Toprol Xl) 25 mg PO DAILY [facility] Stop: 04/25/17 10:46 Last Admin: 10/24/16 10:34 Dose: Not Given Metoprolol Tartrate (Lopressor) 5 mg IVP Q6HR PRN PRN Reason: SEE COMMENTS Stop: 04/24/17 21:35 Morphine Sulfate (Morphine Sulfate) 2 mg IVP Q4HR PRN PRN Reason: Severe Pain (7-10) Stop: 04/24/17 21:35 Naloxone HCl (Narcan) 0.4 mg IVP Q2MIN PRN PRN Reason: Opioid Reversal Stop: 04/24/17 21:35 Omeprazole (Prilosec) 20 mg PO DAILY@0630 [facility] PRN Reason: Protocol Stop: 04/25/17 06:31 Last Admin: 10/25/16 05:27 Dose: 20 mg Ondansetron HCl (Zofran) 4 mg IVP Q8HR PRN PRN Reason: Nausea And Vomiting Stop: 04/24/17 21:35 Oxycodone HCl (Roxicodone) 5 mg PO Q6HR PRN PRN Reason: Moderate Pain (4-6) Stop: 04/24/17 21:35 Prednisone (Prednisone) 5 mg PO QAM [facility] Stop: 04/25/17 09:01 Last Admin: 10/24/16 08:25 Dose: 5 mg Warfarin Sodium (Coumadin Perpt) 1 each PO DAILY@1800 PRN PRN Reason: SEE COMMENTS Stop: 04/25/17 18:01 Warfarin Sodium (Coumadin) 4 mg PO QD@1800 [facility] Stop: 04/25/17 18:01 Last Admin: 10/24/16 18:53 Dose: 4 mg - Imaging and Cardiology Echo: report reviewed - EKG Interpretation EKG results cardiology: other (24 hour telemetry reviewed potential rate 86, remains atrial fibrillation) Consult Discharge Plan - Plan Referrals: Eduardo Floyd DO [Primary Care Provider] -
[2016-10-25] MEDS: predniSONE 5 MG TABLET PO SCH (08:18)
[2016-10-25] MEDS: Metoprolol XL (24 HR) Succ 25 MG TAB.ER.24H PO SCH (08:18)
[2016-10-25] MEDS: Aspirin 81 MG TAB.CHEW PO SCH (08:18)
--- NOTE | 2016-10-25 11:46 | Discharge Summary ---
Date of Encounter: 10/25/16 Time of Encounter: 11:44 - Discharge Diagnosis (1) UTI (urinary tract infection) Priority: Primary Status: Acute Qualifiers: Urinary tract infection type: site unspecified Hematuria presence: without hematuria Qualified Code(s): N39.0 - Urinary tract infection, site not specified (2) Chest pain Priority: Primary Status: Acute Qualifiers: Chest pain type: precordial pain Qualified Code(s): R07.2 - Precordial pain (3) Atrial fibrillation with RVR Priority: Primary Status: Acute (4) HTN (hypertension) Priority: Secondary Status: Chronic Qualifiers: Hypertension type: essential hypertension Qualified Code(s): I10 - Essential (primary) hypertension (5) Osteoarthritis involving multiple joints on both sides of body Priority: Secondary Status: Chronic - Discharge Medications Prescriptions: Nitrofurantoin (BID) [Macrobid] 100 mg PO BID #4 capsule Home Medications: Alendronate Sodium [Fosamax] 70 mg PO 11/18/15 [History] Hydrochlorothiazide 12.5 mg PO [facility] 11/18/15 [History] Lovastatin [Mevacor] 20 mg PO 11/18/15 [History] Metoprolol XL (24 HR) Succ [Toprol XL] 25 mg PO QA 11/18/15 [History] Omeprazole [PriLOSEC] 20 mg PO [facility] 11/18/15 [History] PredniSONE 5 mg PO QA 11/18/15 [History] Warfarin [Coumadin] 2.5 mg PO SUMOTUWETHFR 11/18/15 [History] OxyCODONE Immed Rel [Roxicodone 5 MG] 5 - 10 mg PO Q6HR PRN #40 tablet 09/28/16 [Rx] Amlodipine Besylate 2.5 mg PO HS 09/29/16 [History] Warfarin [Coumadin] 5 mg PO SA 09/29/16 [History] Aspirin [Lo-Dose Aspirin EC] 81 mg PO DAILY 10/24/16 [History] Nitrofurantoin (BID) [Macrobid] 100 mg PO BID #4 capsule 10/25/16 [Rx] Allergies/Adverse Reactions: Allergies codeine Allergy (Verified 09/29/16 11:47) Dizziness albuterol Adverse Reaction (Verified 09/29/16 11:47) Blisters in mouth cephalexin [From Keflex] Adverse Reaction (Verified 09/29/16 11:47) blisters in mouth levofloxacin Adverse Reaction (Verified 09/29/16 11:47) patient unsure of reaction Procedures/tests Complete & Pending: Procedures Performed prior 72 hours Category Date Time Status EV echocardiogram Stat Y 10/24/16 21:41 Completed Date of admission: 10/23/16 20:52 Primary care physician: Iván Rees Consults: 10/24/16 08:00 Consult to Cardiology [CONS] Routine Comment: Consulting Provider: Card[facility] Reason for Consult: Long-standing paroxysmal atrial fibrillation with history of being refractory/intolerant of pharmacologic treatments presents with atrial fibrillation RVR and acute chest pain. Please evaluate and advise. Time Notified: 23:17 Call Completed: No Discharging clinician: Florence Dent Anticipated date of discharge: 10/25/16 - Patient Status Disposition: Home, Self-Care Condition: Good Functional capacity at discharge: independent ambulation Overall status at discharge: patient is progressing back to baseline - Discharge Instructions Instructions: Warfarin (By mouth), Atrial Fibrillation (DC), Chest Pain (DC), Urinary Tract Infection in Women (DC) Follow Up With: Ashwin Muñoz MD [Partnered Physician] - 10/26/16 10:35 am Armando Mendiola MD [Partnered Physician] - Eduardo Floyd DO [Primary Care Provider] - 11/02/16 12:00 pm Additional Instructions: F/up with [facility]- in 1-2 weeks - Diet and Activity Activity: resume usual activities as tolerated Diet: low fat, low cholesterol, low salt diet Hospital course: Ms. Sabillon is a 71 year old female was admitted with chest discomfort and palpitations. She was noted to be in atrial fibrillation with RVR and briefly started on low dose IV Cardizem drip. Her HR was better controlled by next morning and Cardizem drip was tapered off and started on home dose of Metoprolol. assisted anticoagulation was continued with Coumadin and INR remained therapeutic. Echocardiogram was done showing preserved EF, mild LV diastolic dysfunction, severe LAD. Cardiology was consulted and agreed with management and patient is encouraged to f/up with [facility] as outpatient to discuss about ablation. She is medically stable for discharge. She was also noted to have asymptomatic UTI and received IV Aztreonam in the hospital and is being discharged on Nitrofurantoin to complete 3 day course, based on prior urine cultures; present culture grows gram negative rods, pending full report. - Time Spent with Patient Total time spent providing and/or coordinating discharge services: Greater than 30 minutes (45 min) - Constitutional Vitals: Temp Pulse Resp BP Pulse Ox 98.2 F 86 16 143/90 98 10/25/16 07:18 10/25/16 07:18 10/25/16 07:18 10/25/16 07:18 10/25/16 08:25 General appearance: Present: A&O X 3, answers questions appropriately - Respiratory Respiratory exam: Present: CTAB. Absent: accessory muscle use, rales, rhonchi, wheezes - Cardiovascular Cardiovascular exam: Present: irregular rhythm, +S1, +S2. Absent: diastolic murmur, gallop, rubs, systolic murmur
[2016-10-25] MEDS ORDERED: *HR* Warfarin 5 MG TABLET PO ONE (18:00)
== END 2016-10-25 14:02 | disposition home or self-care (01) | DRG 308 ==
LOC: EMEROO 18:42 → 2NENU 18:42 → OBSVTOIN 20:52 → 2NENU 21:33
PROVIDERS: ADMIT Internal Medicine; ATTEND Internal Medicine

== ENCOUNTER 2016-11-19 23:59 | Observation (INO) ==
[2016-11-20 01:01] LABS: Basophils % 0.3 %; Eosinophils % 0.3 %; Hematocrit 34.3 % (35.3-44.9); Hemoglobin 10.3 g/dL (11.5-15.4); Immature Granulocytes % 0.3 % (0-4); Lymphocytes # 1.9 K/mcL (0.6-4.6); Lymphocytes % 24.8 %; Mean Corpuscular Hemoglobin 24.2 pg (28.0-33.3); Mean Corpuscular Volume 80.7 fL (83.0-100.0); Mean Platelet Volume 11.4 fL (9.4-12.4); Monocytes # 0.7 K/mcL (0.0-1.3); Monocytes % 9.1 %; Neutrophils # 5.1 K/mcL (1.6-8.9); Platelet Count 287 K/mcL (140-400); Red Blood Count 4.25 M/mcL (3.82-4.97); Red Cell Distribution Width 15.7 % (11.5-14.5); Segmented Neutrophils % 65.2 %
[2016-11-20 01:15] LABS: BUN/Creatinine Ratio 18 (6-26); Blood Urea Nitrogen 17 mg/dL (7-20); Calcium 9.3 mg/dL (8.6-10.8); Carbon Dioxide 27 mEq/L (19-29); Chloride 105 mEq/L (98-109); Glucose 94 mg/dL (70-99); Osmolality,Calculated 293 (280-300); Potassium 3.3 mEq/L (3.5-4.5); Sodium 141 mEq/L (136-145); eGFR For African Americans > 60 (> 60); eGFR For Non-African Americans 57 (> 60)
[2016-11-20] MEDS ORDERED: 0.9 % Sodium Chloride 1,000 ML IVC ONE (03:12)
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
[2016-11-20] MEDS ORDERED: *HR* HYDROmorphone (PF) 1 MG/ML SYRINGE IVP ONE (03:17)
[2016-11-20] MEDS ORDERED: Ondansetron 4 MG/2 ML VIAL IVP ONE (03:17)
[2016-11-20] MEDS ORDERED: Vancomycin 750 MG in D5% in Water 250 ML IVPB SCH ×2 (04:00→07:00)
[2016-11-20] MEDS: Vancomycin 1,000 MG in D5% in Water 250 ML IVPB SCH (04:25)
[2016-11-20] MEDS ORDERED: Ondansetron 4 MG/2 ML VIAL IVP PRN (06:10)
[2016-11-20] MEDS ORDERED: Mag Hydrox/Al Hydrox/Simeth 30 ML UDC PO PRN (06:10)
[2016-11-20] MEDS ORDERED: *HR* OxyCODONE Immed Rel 5 MG TABLET PO PRN ×2 (06:10→06:19)
[2016-11-20] MEDS ORDERED: Naloxone 0.4 MG/ML INJ IVP PRN (06:10)
[2016-11-20] MEDS ORDERED: Acetaminophen 325 MG TABLET PO PRN (06:10)
[2016-11-20] MEDS ORDERED: *HR* HYDROmorphone (PF) 1 MG/ML SYRINGE IVP PRN (06:10)
[2016-11-20] MEDS ORDERED: Potassium Chloride Elixir 20 MEQ/15 ML UDC PO ONE (06:20)
--- NOTE | 2016-11-20 06:24 | Internal Med History&Physical ---
Date of Encounter: 11/20/16 Time of Encounter: 06:00 Assessment and Plan (1) Knee pain, left Current visit: Yes Status: Acute . Qualifiers: Chronicity: acute Qualified Code(s): M25.562 - Pain in left knee (2) Infection of total knee replacement Current visit: Yes Status: Acute . Qualifiers: Encounter type: initial encounter Qualified Code(s): T84.59XA - Infection and inflammatory reaction due to other internal joint prosthesis, initial encounter; Z96.659 - Presence of unspecified artificial knee joint (3) Septic joint of left knee joint Current visit: Yes Status: Acute . Qualifiers: Septic arthritis organism: due to unspecified organism Qualified Code(s): M00.9 - Pyogenic arthritis, unspecified Internal Medicine - H&P: HPI Chief complaint: Pain and swelling of the left knee. Unable to walk. Admitted From: Emergency Dept Plans for Post Hospital Care: Home History of present illness: Ms. Sabillon is a 71 year old female with history of paroxysmal atrial fibrillation, chronic anticoagulation (warfarin), hypertension, dyslipidemia, osteoarthritis, osteoporosis, RA, nonsmoker is admitted to [facility] via the emergency department when she presents with complaints of left knee pain and redness swelling and incisional wound drainage. The patient had underwent left total knee replacement surgery 09/29/2016. Her postoperative course was uneventful receiving a satisfactory report from her orthopedic surgeon approximately a month prior to this presentation. Within 2 weeks of this presentation she began to notice increasing redness swelling and tenderness about the the left knee. Incisional wound opened with purulent drainage evident over the last 2 weeks. Within days of this presentation she was unable to weight-bear due to pain. She reported her symptoms to the offices of the orthopedic surgery group and plans were made. The [employer] and outpatient but she was unable to complete those arrangements. She declares at this time pain is most severe. Rates it at a 10/10 constant aching nagging pain. Nothing seems to improve pain when present. It is worsened with attempts at weightbearing and movement of joint. She denied any associated complaints of fevers chills sweats nausea vomiting shortness severe chest pain lateral weakness syncopal or presyncopal events. She reported compliance with prescribed medications without indiscretion. Vital signs were stable and demonstrated a temperature of 98.2. Blood pressure was elevated at presentation due to pain at 172/115. This improved spontaneously with adequate pain control. WBC 7.8 hemoglobin 10.3 MCV 80.7 and C6 H 24.2. RDW 15.7. Platelets 287,000. Differential normal. Metabolic panel normal except potassium of 3.3. BUN was 17 with a creatinine of 0.96 GFR 57. X-ray of the knee demonstrated effusion within the suprapatellar bursa. No acute osseous findings were seen in this limited study. Preliminary impression suggests development of infection of surgical with progressive invasion. Presentation is worrisome for left septic knee joint infection with associated cellulitis and purulent effusion. The patient presents risk for further acute clinical decline and morbidity in this setting. Patient in orthopedic surgery has been notified and accepts patient early in the course and disposition. Workup and treatment progress comprehensively. The patient was visited and interviewed and examined. Cumulative laboratory and radiographic data base will be considered and discussed. Pertinent ancillary medical records including ECW and PCI documentation when available was reviewed and considered. Given the patient's presenting concerns, past medical history, clinical findings and symptoms, she is admitted at this time will undergo further evaluation and disposition. Orders were written as per Computerized physician line ordering clinician system.......................................................................... .................... Consultative opinion will be sought as clinical circumstances justify. Pain management needs will be addressed. Laboratory /radiographic data base will be updated as appropriate. Studies include: Cultures blood wound urine, cpk, pt/inr, APTT, UA, cardiac injury panel, BNP, metabolic and hematologic panel, magnesium ,phosphorus, ionized calcium, thyroid panel, lipid profile, A1c, C-peptide, CRP ,sedimentation rate, blood gas, lactic acid, iron profile, serologies, etc. Precautions: Aspiration, fall, delirium protocol/surveillance initiated. Telemetry with continuous hemodynamic monitoring and pulse oximetry initiated. Orthostatic vital signs. Empiric antibiotic coverage: Intravenous vancomycin and meropenem pending culture data. Special studies: CT left knee, left knee x-rays, chest x-ray, telemetry, EKG. Pulmonary toilet: Incentive spirometry. PRN: aerosol bronchodilator, mucolytic, antitussive. Supplemental oxygen. Corticosteroid therapy. CPAP/BiPAP supplemental oxygen deliveryPRN. Aerosol Mucomyst therapy PRN. Fluid and electrolyte repletion efforts will proceed. Careful attention to fluid balance and renal recovery will be emphasized. Avoidance of nephrotoxic exposure and adverse drug drug interaction in the setting of impaired renal function will be monitored closely. Acute coronary syndrome protocol/surveillance initiated. Continued chronic anticoagulation. Coumadin dosing per pharmacy with goal INR of 2-3. DVT and PUD prophylaxis initiated: PPI therapy, intermittent pneumatic cuffs. Early ambulation will be encouraged as patient circumstances permit. Immunization updates recommended. Influenza and pneumococcal vaccinations as part of ongoing preventative healthcare recommendations strongly recommended. Smoking cessation counseling briefly addressed. Patient is a nonsmoker. Advanced care directive discussion briefly addressed. Patient does not declare any healthcare restrictions at this time. Cardiovascular risk appraisal and cardiovascular risk reduction efforts will be emphasized. Physical /occupational therapy consulted to evaluate patient's functional capacity and progressive mobility if her circumstances permit. Sliding scale insulin coverage, ADA dietary restraint and schedule an as-needed basis fingerstick glucose assessments were initiated. Nutrition/diabetes education counseling may be considered as circumstances justify. Outpatient medication schedules will be reviewed, confirmed and facilitated as appropriate. Reconciliation of home treatments including adjustments, substitutions and reintroduction into the treatment regimen will address necessary maintenance therapies for chronic pre-existing medical conditions. Plan of care has been reviewed and discussed in detail with the patient. Questions addressed. Hospital course dictated by clinical findings, treatment response and potential consultative interventions. Patient is a risk for further acute clinical decline due to her age, chief complaints and comorbid conditions. Condition is serious. Prognosis is guarded. CODE STATUS is full. Past Med Surg Social Fam HX - Past Medical History Medical history: arthritis, atrial fibrillation, GERD, GI bleed, hypertension, osteoporosis, RA Psychiatric history: no psych history - Past Surgical History Surgical History: hysterectomy, knee replacement - Social History Smoking Status: Never smoker Smokeless Tobacco Status: No Alcohol use: none Drug use: none - Family History Father Living Status: Hx Family Cardiac Disorders: Yes Mother Adopted: No Family Member Ethnicity: Non- Living Status: Hx Family Cardiac Disorders: Yes Hx Family Respiratory Disorders: No Hx Family Cancer: No Hx Family GI Disorders: No Hx Family Endocrine Disorder: No Hx Family Neuromuscular Disorders: No Hx Family Neurologic Disorders: No Hx Family HEENT Disorders: No Hx Family Autoimmune Disorders: Yes Internal Medicine - H&P: Meds Alendronate Sodium [Fosamax] 70 mg PO FR 11/18/15 [History] Hydrochlorothiazide 12.5 mg PO QAM 11/18/15 [History] Lovastatin [Mevacor] 20 mg PO HS 11/18/15 [History] Metoprolol XL (24 HR) Succ [Toprol XL] 25 mg PO QAM 11/18/15 [History] Omeprazole [PriLOSEC] 20 mg PO QAM 11/18/15 [History] PredniSONE 5 mg PO QAM 11/18/15 [History] Warfarin [Coumadin] 2.5 mg PO SUMOTUWETHFR 11/18/15 [History] OxyCODONE Immed Rel [Roxicodone 5 MG] 5 - 10 mg PO Q6HR PRN #40 tablet 09/28/16 [Rx] Amlodipine Besylate 2.5 mg PO HS 09/29/16 [History] Warfarin [Coumadin] 5 mg PO SA 09/29/16 [History] Aspirin [Lo-Dose Aspirin EC] 81 mg PO DAILY 10/24/16 [History] Nitrofurantoin (BID) [Macrobid] 100 mg PO BID #4 capsule 10/25/16 [Rx] Allergies codeine Allergy (Verified 11/20/16 00:05) Dizziness albuterol Adverse Reaction (Verified 11/20/16 00:05) Blisters in mouth cephalexin [From Keflex] Adverse Reaction (Verified 11/20/16 00:05) blisters in mouth levofloxacin Adverse Reaction (Verified 11/20/16 00:05) patient unsure of reaction All Systems PM: A 10-system review of systems was performed and is negative for pertinent findings except as documented above in the HPI. Allergies Allergy/AdvReac Type Severity Reaction Status Date / Time codeine Allergy Dizziness Verified 11/20/16 00:05 albuterol AdvReac Blisters Verified 11/20/16 00:05 in mouth cephalexin [From Keflex] AdvReac blisters Verified 11/20/16 00:05 in mouth levofloxacin AdvReac patient Verified 11/20/16 00:05 unsure of reaction Patient Problems (Last Updated 11/20/16 @ 06:24 by Francis Murphy MD) Weakness generalized (Acute Medical) R53.1 PAF (paroxysmal atrial fibrillation) (Chronic Medical) I48.0 Cough (Acute Medical) R05 Diverticulitis (Chronic Medical) K57.92 Dehydration (Acute Medical) E86.0 KRANTHI (acute kidney injury) (Resolved Medical) N17.9 Hypokalemia (Acute Medical) E87.6 Anemia associated with acute blood loss (Chronic Medical) D62 GIB (gastrointestinal bleeding) (Acute Medical) K92.2 Arthritis of knee, left (Acute Medical) M17.12 HTN (hypertension) (Chronic Medical) I10 A-fib (Chronic Medical) I48.91 Anticoagulated on Coumadin (Chronic Medical) Z51.81, Z79.01 Acute blood loss anemia (Acute Medical) D62 Atrial fibrillation with RVR (Acute Medical) I48.91 Chest pain, rule out acute myocardial infarction (Acute Medical) R07.9 Chest pain with low risk of acute coronary syndrome (Acute Medical) R07.9 Dyslipidemia (Chronic Medical) E78.5 Hypocalcemia (Acute Medical) E83.51 Osteoarthritis involving multiple joints on both sides of body (Chronic Medical ) M15.9 Osteoporosis (Chronic Medical) M81.0 Chest pain (Acute Medical) R07.9 UTI (urinary tract infection) (Acute Medical) N39.0 Septic joint of left knee joint (Acute Medical) M00.9 Infection of total knee replacement (Acute Medical) T84.59XA, Z96.659 Knee pain, left (Acute Medical) M25.562 A-fib (Inactive Medical) I48.91 KRANTHI (acute kidney injury) (Inactive Medical) N17.9 Afib (Inactive Medical) I48.91 HTN (hypertension) (Inactive Medical) I10 Hypertension (Inactive Medical) I10 UTI (urinary tract infection) (Inactive Medical) N39.0 - Constitutional Constitutional: as per HPI, malaise, no chills, no fever(s), no night sweats - EENT Eyes: as per HPI, no change in vision, no discharge, no pain, no photophobia Ears: as per HPI, no ear discharge, no ear pain, no tinnitus Nose, mouth and throat: as per HPI, no dysphagia, no nasal discharge, no neck pain, no sore throat - Cardiovascular Cardiovascular ROS IM: as per HPI, no chest pain, no diaphoresis, no dyspnea, no lightheadedness, no palpitations, no syncope - Respiratory Respiratory: as per HPI, no cough, no dyspnea, no wheezing, no excessive phlegm production - Gastrointestinal Gastrointestinal: as per HPI, no abdominal pain, no diarrhea, no hematemesis, no hematochezia, no melena, no nausea, no vomiting - Genitourinary Genitourinary: as per HPI, no change in urinary stream, no dysuria, no flank pain, no hematuria - Musculoskeletal Musculoskeletal ROS IM: as per HPI, arthralgias, deformity, joint swelling, limited range of motion, myalgias, stiffness, other, no numbness, no tingling - Integumentary Integumentary IM: as per HPI, erythema, new lesions, rash, other, no unusual bruising - Neurological Neurological ROS: as per HPI, other, no confusion, no convulsions, no focal weakness, no numbness, no tingling, no tremor(s) - Psychiatric Psychiatric: as per HPI - Endocrine Endocrine IM: as per HPI - Hematologic/Lymphatic Hematologic/Lymphatic: as per HPI, no easy bruising - Allergic/Immunologic Allergic/Immunologic: as per HPI - Constitutional Vitals: Temp Pulse Resp BP Pulse Ox 98.2 F 80 20 119/68 97 11/20/16 00:00 11/20/16 05:30 11/20/16 05:30 11/20/16 05:30 11/20/16 05:30 Vital Signs Temp Pulse Resp BP Pulse Ox 11/20/16 05:30 80 20 119/68 97 11/20/16 05:00 92 20 118/66 97 11/20/16 04:36 109 20 124/74 96 11/20/16 00:00 98.2 F 96 16 172/115 94 Intake and Output 11/19/16 11/19/16 11/20/16 15:59 23:59 07:59 Other: Weight 56.699 kg Patient Weight 11/20/16 23:59 Weight 56.699 kg General appearance: Present: mild distress, A&O X 3, answers questions appropriately - Head Head exam: Present: atraumatic, normocephalic - Eye Eye exam: Present: EOMI, PERRL, conjuntiva pink, sclera anicteric Pupils: Present: normal accommodation, PERRL - ENT ENT exam: Present: mucous membranes moist, normal oropharynx - Neck Neck exam general surgery: Present: supple, trachea midline. Absent: lymphadenopathy - Respiratory Respiratory exam: Present: decreased breath sounds, CTAB. Absent: accessory muscle use, rales, rhonchi, wheezes - Cardiovascular Cardiovascular exam: Present: distant heart sounds, RRR, +S1, +S2. Absent: diastolic murmur, gallop, rubs, systolic murmur - GI/Abdominal GI/Abdominal exam: Present: normal bowel sounds, soft, no peritoneal signs. Absent: distended, tenderness - Extremities Exam Extremities exam: Present: joint swelling, tenderness, warm, radial pulses palpable and symetrical. Absent: calf tenderness, cyanotic, full ROM, normal inspection (Diffuse tenderness, generalized swelling erythema with purulent drainage from's. Aspect of left knee wound incision noted.), pedal edema - Expanded Lower Extremities Exam Knee exam: Present: deformity, ecchymosis, effusion, erythema, swelling, tenderness, warmth. Absent: full ROM, normal inspection Neuro vascular tendon exam: Present: significant pain with passive ROM of distal joint Gait: Present: not tested/not observed - Neurological Exam Neurological exam: Present: alert, CN II-XII intact, oriented X3, no focal deficits. Absent: pronater drift, facial droop, speech deficit - Psychiatric Psychiatric exam: Present: normal affect, normal mood - Skin Skin exam: Present: dry, erythema, intact, warm Internal Med - H&P Results - Labs CBC & Chem 7: 11/20/16 00:05 11/20/16 00:05 Labs: Short CBC 11/20/16 Range/Units 00:05 WBC 7.8 (4.3-11.1) K/mcL Hgb 10.3 L (11.5-15.4) g/dL Hct 34.3 L (35.3-44.9) % Plt Count 287 (140-400) K/mcL Neutrophils # 5.1 (1.6-8.9) K/mcL BMP 11/20/16 Range/Units 00:05 Sodium 141 (136-145) mEq/L Potassium 3.3 L (3.5-4.5) mEq/L Chloride 105 (98-109) mEq/L Carbon Dioxide 27 (19-29) mEq/L BUN 17 (7-20) mg/dL Creatinine 0.96 (0.57-1.11) mg/dL Glucose 94 (70-99) mg/dL Calcium 9.3 (8.6-10.8) mg/dL Abnormal lab results Hgb 10.3 g/dL (11.5-15.4) L 11/20/16 00:05 Hct 34.3 % (35.3-44.9) L 11/20/16 00:05 MCV 80.7 fL (83.0-100.0) L 11/20/16 00:05 MCH 24.2 pg (28.0-33.3) L 11/20/16 00:05 MCHC 30.0 g/dL (31.6-35.5) L 11/20/16 00:05 RDW 15.7 % (11.5-14.5) H 11/20/16 00:05 Potassium 3.3 mEq/L (3.5-4.5) L 11/20/16 00:05 Est GFR (Non-Af Amer) 57 (> 60) L 11/20/16 00:05 Laboratory Last Values WBC 7.8 K/mcL (4.3-11.1) 11/20/16 00:05 RBC 4.25 M/mcL (3.82-4.97) 11/20/16 00:05 Hgb 10.3 g/dL (11.5-15.4) L 11/20/16 00:05 Hct 34.3 % (35.3-44.9) L 11/20/16 00:05 MCV 80.7 fL (83.0-100.0) L 11/20/16 00:05 MCH 24.2 pg (28.0-33.3) L 11/20/16 00:05 MCHC 30.0 g/dL (31.6-35.5) L 11/20/16 00:05 RDW 15.7 % (11.5-14.5) H 11/20/16 00:05 Plt Count 287 K/mcL (140-400) 11/20/16 00:05 MPV 11.4 fL (9.4-12.4) 11/20/16 00:05 Immature Gran % 0.3 % (0-4) 11/20/16 00:05 Seg Neutrophils % 65.2 % 11/20/16 00:05 Lymphocytes % 24.8 % 11/20/16 00:05 Monocytes % 9.1 % 11/20/16 00:05 Eosinophils % 0.3 % 11/20/16 00:05 Basophils % 0.3 % 11/20/16 00:05 Neutrophils # 5.1 K/mcL (1.6-8.9) 11/20/16 00:05 Lymphocytes # 1.9 K/mcL (0.6-4.6) 11/20/16 00:05 Monocytes # 0.7 K/mcL (0.0-1.3) 11/20/16 00:05 Eosinophils # 0.0 K/mcL (0.0-0.6) 11/20/16 00:05 Basophils # 0.0 K/mcL (0.0-0.2) 11/20/16 00:05 Sodium 141 mEq/L (136-145) 11/20/16 00:05 Potassium 3.3 mEq/L (3.5-4.5) L 11/20/16 00:05 Chloride 105 mEq/L (98-109) 11/20/16 00:05 Carbon Dioxide 27 mEq/L (19-29) 11/20/16 00:05 BUN 17 mg/dL (7-20) 11/20/16 00:05 Creatinine 0.96 mg/dL (0.57-1.11) 11/20/16 00:05 Est GFR ( Amer) > 60 (> 60) 11/20/16 00:05 Est GFR (Non-Af Amer) 57 (> 60) L 11/20/16 00:05 BUN/Creatinine Ratio 18 (6-26) 11/20/16 00:05 Glucose 94 mg/dL (70-99) 11/20/16 00:05 Calculated Osmolality 293 (280-300) 11/20/16 00:05 Calcium 9.3 mg/dL (8.6-10.8) 11/20/16 00:05 - Impressions Knee X-Ray 11/20/16 00:11 IMPRESSION: 1. Effusion in the suprapatellar bursa. 2. No acute osseous findings identified. D/ / Napoleon Posadas MD / Napoleon Posadas MD Interpreting Provider: Napoleon Posadas MD - Attending Attestation Allergies codeine Allergy (Verified 11/20/16 00:05) Dizziness albuterol Adverse Reaction (Verified 11/20/16 00:05) Blisters in mouth cephalexin [From Keflex] Adverse Reaction (Verified 11/20/16 00:05) blisters in mouth levofloxacin Adverse Reaction (Verified 11/20/16 00:05) patient unsure of reaction Home Medications Medication Instructions Recorded Confirmed Type Alendronate Sodium [Fosamax] 70 mg PO 11/18/15 10/24/16 History Hydrochlorothiazide 12.5 mg PO [facility] 11/18/15 10/24/16 History Lovastatin [Mevacor] 20 mg PO 11/18/15 10/24/16 History Metoprolol XL (24 HR) Succ [Toprol 25 mg PO [facility] 11/18/15 10/24/16 History XL] Omeprazole [PriLOSEC] 20 mg PO [facility] 11/18/15 10/24/16 History PredniSONE 5 mg PO [facility] 11/18/15 10/24/16 History Warfarin [Coumadin] 2.5 mg PO SUMOTUWETHFR 11/18/15 10/24/16 History Amlodipine Besylate 2.5 mg PO 09/29/16 10/24/16 History Warfarin [Coumadin] 5 mg PO SA 09/29/16 10/24/16 History Aspirin [Lo-Dose Aspirin EC] 81 mg PO DAILY 10/24/16 10/24/16 History I & O 11/17/16 11/18/16 11/19/16 11/20/16 23:59 23:59 23:59 23:59 Weight 56.699 kg Medications Acetaminophen (Tylenol) 650 mg PO Q6HR PRN PRN Reason: Mild Pain (1-3) Stop: 05/22/17 06:11 Al Hydrox/Mg Hydrox/Simethicone (Maalox) 15 ml PO Q6HR PRN PRN Reason: Dyspepsia Stop: 05/22/17 06:11 Aspirin (Aspirin Ec) 81 mg PO DAILY [facility] Stop: 05/22/17 09:01 Docusate Sodium (Colace) 100 mg PO BID PRN PRN Reason: Constipation Stop: 05/22/17 06:11 Hydromorphone HCl (Dilaudid) 0.5 mg IVP Q4HR PRN PRN Reason: Severe Pain (7-10) Stop: 05/22/17 06:11 Vancomycin HCl 1,000 mg/ (Dextrose) 250 mls @ 167 mls/hr IVPB Q24H [facility] PRN Reason: Protocol Stop: 05/22/17 05:01 Last Admin: 11/20/16 04:25 Dose: 167 mls/hr Sodium Chloride (0.9 % Sodium Chloride) 1,000 mls @ 50 mls/hr IVC .Q20H [facility] Stop: 05/22/17 06:16 Meropenem 1,000 mg/ Sodium (Chloride) 100 mls @ 200 mls/hr IVPB Q8HR [facility] Stop: 05/22/17 08:01 Vancomycin HCl 750 mg/ (Dextrose) 250 mls @ 167 mls/hr IVPB RPHPROT [facility] PRN Reason: Protocol Stop: 05/22/17 07:01 Lovastatin (Mevacor) 20 mg PO HS [facility] Stop: 05/22/17 21:01 Metoprolol Succinate ([facility] Xl) [facility] [place] Stop: 05/22/17 09:01 Naloxone HCl (Narcan) 0.4 mg IVP Q2MIN PRN PRN Reason: Opioid Reversal Stop: 05/22/17 06:11 Non-Formulary Medication (Amlodipine Besylate [Amlodipine Besylate]) 2.5 mg PO HS [facility] Stop: 05/22/17 21:01 Omeprazole (Prilosec) [facility] [place] PRN Reason: Protocol Stop: 05/22/17 09:01 Ondansetron HCl (Zofran) 4 mg IVP Q8HR PRN PRN Reason: Nausea And Vomiting Stop: 05/22/17 06:11 Oxycodone HCl (Roxicodone) 5 mg PO Q4H PRN PRN Reason: Moderate Pain (4-6) Stop: 05/22/17 06:11 Potassium Chloride (Potassium Chloride) 40 meq PO ONCE ONE Stop: 11/20/16 06:21 Prednisone (Prednisone) [facility] [place] Stop: 05/22/17 09:01 Warfarin Sodium (Coumadin Perpt) 1 each PO DAILY@1800 PRN PRN Reason: SEE COMMENTS Stop: 05/22/17 18:01 Discontinued Medications Hydromorphone HCl (Dilaudid) 1 mg IVP ONCE ONE Stop: 11/20/16 03:18 Last Admin: 11/20/16 04:24 Dose: 1 mg Sodium Chloride (0.9 % Sodium Chloride) 1,000 mls @ 3,750 mls/hr IVC .Q16M ONE Stop: 11/20/16 03:27 Last Admin: 11/20/16 04:25 Dose: 3,750 mls/hr Vancomycin HCl 750 mg/ (Dextrose) 250 mls @ 167 mls/hr IVPB RPHPROT [facility] PRN Reason: Protocol Stop: 05/22/17 04:01 Ondansetron HCl (Zofran) 4 mg IVP ONCE ONE PRN Reason: Protocol Stop: 11/20/16 03:18 Last Admin: 11/20/16 04:24 Dose: 4 mg Oxycodone HCl (Roxicodone) 5 mg PO Q6HR PRN PRN Reason: Moderate Pain (4-6) Stop: 05/22/17 06:11 Orders 11/20/16 00:05 CBC [Complete Blood Count] [HEME] Stat Comment: Specimen: Send someone from the department to collect Chem 7 [Basic Metabolic Panel] Stat Comment: Specimen: Send someone from the department to collect 11/20/16 00:11 XR knee 3V LT [XR] Stat Mode Of Transportation: Ambulatory Reason For Exam: pain/swelling Order Doctor: Claudio Simon Exam Performed At:: [facility] Additional Notes/Special Instructions: [id number] 11/20/16 01:47 Culture,Blood,Additional [BC] Stat Comment: CARRIE Source: Peripheral Venipuncture Quantity: 2 Specimen: Send someone from the department to collect Specimen Description: 11/20/16 03:10 Culture,Wound [RM] Stat Comment: CARRIE Source: Incision Specimen: Send someone from the department to collect Specimen Description: 11/20/16 03:12 0.9 % Sodium Chloride 1,000 ml IVC 3,750 mls/hr 11/20/16 03:17 HYDROmorphone (PF) [Dilaudid] 1 mg IVP ONCE ONE Ondansetron [Zofran] 4 mg IVP ONCE ONE 11/20/16 03:[address] Stat Comment: Reason for Visit: septic joint, can't walk 11/20/16 03:48 Consult to Orthopedic Surgery [CONS] Routine Consulting Provider: Narinder White Reason for Consult: septic knee Time Notified: 03:48 Call Completed: Yes 11/20/16 04:00 Vancomycin [Vancocin (wt based)] 750 mg D5% in Water [Dextrose 5%] 250 ml IVPB RPHPROT 11/20/16 05:00 Vancomycin [Vancocin] 1,000 mg D5% in Water [Dextrose 5%] 250 ml IVPB Q24H 11/20/16 06:10 Aspiration precautions [RC] .CONTINUOUS Falls precautions (Khris-Felton [RC] ONCE Incentive Spirometry [RC] .6 TIMES PER HR WHILE AWAKE Peripheral IV [RC] CONT Placement to Observation Routine Physician Instructions: Reason for Visit: Left knee pain and swelling Is VTE Prophylaxis Indicated?: Yes Vital Signs Assessment [RC] Q4H Activated Partial Thrombo Time [COAG] Stat Specimen: Send someone from the department to collect Comment: C-Reactive Protein Stat Specimen: Send someone from the department to collect Comment: Culture,Blood [BC] Stat Quantity: 2 Specimen: Send someone from the department to collect Comment: CARRIE Source: Peripheral Venipuncture Specimen Description: Erythrocyte Sedimentation Rate [HEME] Stat Specimen: Send someone from the department to collect Comment: Hgb A1C Stat Specimen: Send someone from the department to collect Comment: Lactate [Lactic Acid ([facility] Only)] Stat Specimen: Send someone from the department to collect Comment: Magnesium Stat Specimen: Send someone from the department to collect Comment: Phosphorous Stat Specimen: Send someone from the department to collect Comment: Prothrombin Time INR [COAG] Stat Specimen: Send someone from the department to collect Comment: Thyroid Stimulating Hormone Stat Specimen: Send someone from the department to collect Comment: Urinalysis reflex Microscopic [URIN] Stat Specimen: Send someone from the department to collect Comment: Acetaminophen [Tylenol] 650 mg PO Q6HR PRN Docusate [Colace] 100 mg PO BID PRN HYDROmorphone (PF) [Dilaudid] 0.5 mg IVP Q4HR PRN Mag Hydrox/Al Hydrox/Simeth [Maalox] 15 ml PO Q6HR PRN Naloxone [Narcan] 0.4 mg IVP Q2MIN PRN Ondansetron [Zofran] 4 mg IVP Q8HR PRN OxyCODONE Immed Rel [Roxicodone] 5 mg PO Q6HR PRN ECG 12 lead ECG [ECG] Stat Mode Of Transportation: Ambulatory Reason For Exam: preop Order Doctor: Francis Murphy Exam Performed At:: [facility] 11/20/16 06:11 Bed rest [RC] .CONT Physician Instructions: Bed rest w/bedside commode [RC] .PRN Cardiac Monitoring Med/Surg [RC] .CONT Telemetry Reason: ACS/CP Continuous pulse oximetry [RC] CONT Comment: Measure intake and output [RC] QSHIFT Measure weight [RC] DAILY RT has an order or consult [RC] NOW 11/20/16 06:12 Oxygen via nasal cannula Nasal Cannula 2 lpm Comment: Titrate O2 to main O2 sat greater than: 92% 11/20/16 06:14 Consult to Occupational Therapy [CONS] Routine Comment: Evaluate, develop and implement POC Consult to Physical Therapy [CONS] Routine Comment: Evaluate, develop and implement POC 11/20/16 06:15 Troponin I Q6H Specimen: Send someone from the department to collect Comment: 0.9 % Sodium Chloride 1,000 ml IVC 50 mls/hr Up with Assist Daily Physician Instructions: Comment: 11/20/16 06:16 12 lead ECG assessment [RC] NOW 11/20/16 06:19 OxyCODONE Immed Rel [Roxicodone] 5 mg PO Q4H PRN 11/20/16 06:20 Potassium Chloride Elixir [Potassium Chloride] 40 meq PO ONCE ONE 11/20/16 07:00 Vancomycin [Vancocin (wt based)] 750 mg D5% in Water [Dextrose 5%] 250 ml IVPB RPHPROT 11/20/16 08:00 Consult to Physician [CONS] Routine Consulting Provider: Narinder White Reason for Consult: 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 His evaluate and advise. Time Notified: 06:15 Call Completed: Yes Meropenem [Merrem] 1,000 mg 0.9 % Sodium Chloride Mini Bag [0.9 % Sodium Chloride (Mini-Bag +)] 100 ml IVPB Q8HR 11/20/16 09:00 Aspirin Enteric Coated [Aspirin EC] 81 mg PO DAILY Metoprolol XL (24 HR) Succ [Toprol XL] 25 mg PO QAM Omeprazole [PriLOSEC] 20 mg PO QAM PredniSONE 5 mg PO QAM 11/20/16 12:15 Troponin I Q6H Specimen: Send someone from the department to collect Comment: 11/20/16 18:00 Warfarin perPT [Coumadin perPT] 1 each PO DAILY@1800 PRN 11/20/16 18:15 Troponin I Q6H Specimen: Send someone from the department to collect Comment: 11/20/16 21:00 Amlodipine Besylate [Amlodipine Besylate] 2.5 mg PO HS How will this medication be supplied?: Pharmacy to Subsitute Lovastatin [Mevacor] 20 mg PO HS 11/20/16 Breakfast Cardiac Diet Diet Modifications: 11/21/16 04:00 Activated Partial Thrombo Time [COAG] AM 0400 Specimen: Send someone from the department to collect Comment: Prothrombin Time INR [COAG] AM 0400 Specimen: Send someone from the department to collect Comment: 11/21/16 06:15 Up with Assist Daily Physician Instructions: Comment: 11/22/16 04:00 Activated Partial Thrombo Time [COAG] AM 0400 Specimen: Send someone from the department to collect Comment: Prothrombin Time INR [COAG] AM 0400 Specimen: Send someone from the department to collect Comment: 11/22/16 06:15 Up with Assist Daily Physician Instructions: Comment: 11/23/16 04:00 Activated Partial Thrombo Time [COAG] AM 0400 Specimen: Send someone from the department to collect Comment: Prothrombin Time INR [COAG] AM 0400 Specimen: Send someone from the department to collect Comment: 11/24/16 04:00 Activated Partial Thrombo Time [COAG] AM 0400 Specimen: Send someone from the department to collect Comment: Prothrombin Time INR [COAG] AM 0400 Specimen: Send someone from the department to collect Comment: 11/25/16 04:00 Activated Partial Thrombo Time [COAG] AM 0400 Specimen: Send someone from the department to collect Comment: Prothrombin Time INR [COAG] AM 0400 Specimen: Send someone from the department to collect Comment: 11/26/16 04:00 Activated Partial Thrombo Time [COAG] AM 0400 Specimen: Send someone from the department to collect Comment: Prothrombin Time INR [COAG] AM 0400 Specimen: Send someone from the department to collect Comment: 11/27/16 04:00 Activated Partial Thrombo Time [COAG] AM 0400 Specimen: Send someone from the department to collect Comment: Prothrombin Time INR [COAG] AM 0400 Specimen: Send someone from the department to collect Comment: Patient Problems (Last Updated 11/20/16 @ 03:20 by Merline Mast DO) Septic joint of left knee joint (Acute) Vital Signs Temp Pulse Resp BP Pulse Ox 11/20/16 05:30 80 20 119/68 97 11/20/16 05:00 92 20 118/66 97 11/20/16 04:36 109 20 124/74 96 11/20/16 00:00 98.2 F 96 16 172/115 94 Laboratory Results 11/20/16 11/20/16 Range/Units 00:05 00:05 WBC 7.8 (4.3-11.1) K/mcL RBC 4.25 (3.82-4.97) M/mcL Hgb 10.3 L (11.5-15.4) g/dL Hct 34.3 L (35.3-44.9) % MCV 80.7 L (83.0-100.0) fL MCH 24.2 L (28.0-33.3) pg MCHC 30.0 L (31.6-35.5) g/dL RDW 15.7 H (11.5-14.5) % Plt Count 287 (140-400) K/mcL MPV 11.4 (9.4-12.4) fL Immature Gran % 0.3 (0-4) % Seg Neutrophils % 65.2 % Lymphocytes % 24.8 % Monocytes % 9.1 % Eosinophils % 0.3 % Basophils % 0.3 % Neutrophils # 5.1 (1.6-8.9) K/mcL Lymphocytes # 1.9 (0.6-4.6) K/mcL Monocytes # 0.7 (0.0-1.3) K/mcL Eosinophils # 0.0 (0.0-0.6) K/mcL Basophils # 0.0 (0.0-0.2) K/mcL Sodium 141 (136-145) mEq/L Potassium 3.3 L (3.5-4.5) mEq/L Chloride 105 (98-109) mEq/L Carbon Dioxide 27 (19-29) mEq/L BUN 17 (7-20) mg/dL Creatinine 0.96 (0.57-1.11) mg/dL Est GFR ( Amer) > 60 (> 60) Est GFR (Non-Af Amer) 57 L (> 60) BUN/Creatinine Ratio 18 (6-26) Glucose 94 (70-99) mg/dL Calculated Osmolality 293 (280-300) Calcium 9.3 (8.6-10.8) mg/dL Assessments/Treatments ED Lower Extremity Injury Assessment Start: 11/20/16 00: 00 Freq: Status: Complete Document 11/20/16 01:50 CRS (Rec: 11/20/16 01:55 CRS [id number]) Extremity Injury, Lower Symptoms/Complaint Knee Injury Onset couple weeks ago Place Injury Occurred surgery Context Unknown Improves With NSAID Immobilization Rest Worsens With Weight Bearing Movement Associated Symptoms Swelling Other Symptoms None Treatment Prior to Arrival NSAIDs Right Knee Pain Description Ache Intensity 10 Scale Used Numeric (1 - 10) Capillary Refill < 3 Seconds Level Of Consciousness Awake Alert Appropriate Follows Commands Patient Orientation Person Place Time Name Age Date of Day of Month Day of Week Month Year Time of Day Patient Behavior Appropriate Cooperative Ability to Follow Directions Good Impaired Cognition Yes Respiratory Depth Normal Respiratory Effort Normal for Patient Spontaneous Non-Labored Respiratory Pattern Regular left knee Edema Type Non-Pitting Left knee Wound Type Surgical Wound Surrounding Tissue Appearance Erythematous Drainage Description Yellow Drainage Amount None Primary Dressing Type [facility] ED Comment patient had a knee replacement on 09/29/16 and since then the surgical incision healed all but the top of the incision. Patient reports 10/10 pain that is aching. it does not get worse or better with any treatments. Saline lock insertion/management Start: 11/20/16 03: 32 Freq: Status: Complete Document 11/20/16 03:32 CRS (Rec: 11/20/16 03:33 CRS [id number]) IV Insertion/Site Assessment IV Attempt 2 Successful Successful Blood drawn and sent to Lab No Right Forearm Date of Insertion 11/20/16 Reason for IV Insertion Replace Lost Fluids Provide Access for IV Medication(s) Provide Access for Emergency IV Catheter Type Peripheral IV Gauge (gauge) 20 Site Observation Patent Dressing Applied Window Dressing Dry/Intact Patient Tolerance Tolerated Well Triage Start: 11/20/16 00: 00 Freq: Status: Complete Document 11/20/16 00:00 [facility] (Rec: 11/20/16 00:05 [facility] [id number]) Triage Chief Complaint triage ED Extremity Injury, Lower Patient Stated Complaint "left knee pain, swelling" ALFREDO 3 Onset (ago) hour(s) Description of Symptoms Patient reports having surgery in Sep on left knee and now having pain, swelling and drainage from the left knee. Was unable to get to her doctors appointment today due to the high water. General Appearance alert Work Related Injury? No Mode of arrival wheelchair Source patient Limitations no limitations Ebola Risk: Travel/Contact With Anyone No From Affected Area/s Has Patient Experienced Ebola Symptoms No Temperature (97.6 F-99.6 F) 98.2 F Temperature Source Oral Pulse Rate 96 Respiratory Rate 16 Blood Pressure 172/115 O2 Sat by Pulse Oximetry 94 Oxygen Delivery Room Air Height 1.57 m Weight 56.699 kg Weight Measurement Method Stated by Patient Pain Scale 10 Pain Scale Used Standard (1-10) Medical history arthritis atrial fibrillation GERD GI bleed hypertension osteoporosis RA Female surgical history knee replacement other Additional surgical history PMH lower back surgery, left Psychiatric history no psych history Smoking Status Never smoker Smokeless Tobacco Status No Alcohol Use none Drug Use none Patient resides with/at Alone Do you currently feel hopless, have No thoughts of self harm, or thoughts of harming others History of fall in last 14 days? No SACK LIFTER history no SACK LIFTER history Influenza vaccine up to date Yes Pneumonia vaccine up to date Yes Tetanus UTD yes Coma Scale Eye Opening Spontaneous Coma Scale Motor Response Obeys Commands Coma Scale Verbal Response Oriented Coma Scale Total 15 Father Family Member Living Status Hx Family Cardiac Disorders Yes Mother Adopted No Family Member Ethnicity Non- Family Member Living Status Hx Family Cardiac Disorders Yes Hx Family Respiratory Disorders No Hx Family Cancer No Hx Family GI Disease No Hx Family Endocrine Disorder No Hx Family Neuromuscular Dysfunction No Hx Family Neurologic Problems No Hx Family HEENT Problems No Hx Family Autoimmune Disease Problems Yes Vital Signs Assessment Start: 11/20/16 00: 00 Freq: Status: Active Document 11/20/16 04:36 CRS (Rec: 11/20/16 04:36 CRS [id number]) ED Vital Signs Pain Reported Pain Reported Pain Scale 8 Blood Pressure 124/74 Pulse Rate 109 Respiratory Rate 20 Pulse Oximetry 96 Oxygen Delivery Nasal Cannula Oxygen Flow Rate (LPM) 2 Document 11/20/16 05:00 CRS (Rec: 11/20/16 05:56 CRS [id number]) ED Vital Signs Pain Reported No Pain Reported Blood Pressure 118/66 Pulse Rate 92 Respiratory Rate 20 Pulse Oximetry 97 Oxygen Delivery Nasal Cannula Oxygen Flow Rate (LPM) 2 Document 11/20/16 05:30 CRS (Rec: 11/20/16 05:56 CRS [id number]) ED Vital Signs Pain Reported No Pain Reported Blood Pressure 119/68 Pulse Rate 80 Respiratory Rate 20 Pulse Oximetry 97 Oxygen Delivery Nasal Cannula Oxygen Flow Rate (LPM) 2 Discharge Information ED Provider: Claudio Simon Status: Admitted Observation Patient Time Seen by Provider: 11/20/16 02:48 Condition: Fair Triaged At: 11/20/16 00:00 Other ED Providers: Narinder White Emergency Discharge Date/Time: Emergency Discharge Disposition: Admitted As Inpatient Clinical Impression Septic joint of left knee joint Emergency Discharge Comment: Admit Intervention Last Done ED Lower Extremity Injury Assessment 11/20/16 01:50 Query Result Lower Extremity Injury Symptoms/ Knee Injury Complaint Lower Extremity Injury Onset couple weeks ago Place Fall Occurred surgery Lower Extremity Injury Context Unknown Lower Extremity Injury Improves With NSAID Immobilization Rest Lower Extremity Injury Worsens With Weight Bearing Movement Lower Extremity Injury Associated Swelling Symptoms Lower Extremity Injury Other Symptoms None Lower Extremity Injury Treatments Prior NSAIDs to Arrival Right Knee -Pain Description Ache -Pain Intensity 10 -Pain Scale Used Numeric (1 - 10) Capillary Refill < 3 Seconds Level Of Consciousness Awake Alert Appropriate Follows Commands Patient Orientation Person Place Time Name Age Date of Day of Month Day of Week Month Year Time of Day Patient Behavior Appropriate Cooperative Ability to Follow Directions Good Impaired Cognition Yes Respiratory Depth Normal Respiratory Effort Normal for Patient Spontaneous Non-Labored Respiratory Pattern Regular left knee -Edema Type Non-Pitting Left knee -Wound Type Surgical Wound -Wound Surrounding Tissue Appearance ( Erythematous Periwound) -Wound Drainage Description Yellow -Wound Drainage Amount 1 None -Wound Primary Dressing Type [employer] ED Comment patient had a knee replacement on 09/29/16 and since then the surgical incision healed all but the top of the incision. Patient reports 10/10 pain that is aching. it does not get worse or better with any treatments. ED Discharge Assessment Observation Discharge Date/Time: Observation Discharge Disposition: Observation Discharge Comment: Instructions: Stand-Alone Forms: Prescriptions: Visit Report - Forms: - Referrals: Radiology Results Knee X-Ray 11/20/16 00:11
[2016-11-20 06:57] LABS: INR 2.7; Prothrombin Time 29.8 Seconds (9.4-12.1)
[2016-11-20 07:00] LABS: Hemoglobin A1C 5.2 %
[2016-11-20 07:04] LABS: Magnesium 1.6 mg/dL (1.6-2.6); Phosphorous 4.2 mg/dL (2.3-4.7)
[2016-11-20] MEDS: 0.9 % Sodium Chloride 1,000 ML IVC SCH (07:05)
[2016-11-20] MEDS: Meropenem 1,000 MG in 0.9 % Sodium Chloride Mini Bag 100 ML IVPB SCH ×2 (07:06→15:35)
[2016-11-20 07:27] LABS: Thyroid Stimulating Hormone 3.418 mcIU/mL (0.350-4.840)
[2016-11-20] MEDS: predniSONE 5 MG TABLET PO SCH (10:02)
[2016-11-20] MEDS: Aspirin Enteric Coated 81 MG Tablet PO SCH (10:02)
[2016-11-20] MEDS: Metoprolol XL (24 HR) Succ 25 MG TAB.ER.24H PO SCH (10:02)
--- NOTE | 2016-11-20 15:25 | Event Note ---
Date of Encounter: 11/20/16 Time of Encounter: 12:30 Patient is doing well. Swelling and erythema around her left knee is improving. There is a small open wound with clean base surrounded by mild erythema tender to palpation in the superior portion of the knee joint. There is slight purulent drainage at this site. Discussed case with Dr. Muñoz who recommended patient continue to receive IV antibiotics for another day and be discharged home tomorrow on oral antibiotics with follow-up on Tuesday in the orthopedics clinic. Patient agreeable to current plan.
--- NOTE | 2016-11-20 17:41 | Orthopedics Progress Note ---
Date of Encounter: 11/20/16 Time of Encounter: 17:37 - Assessment and Plan (1) Wound dehiscence, external operation Current Visit: Yes Status: Acute s/p TKA last month recommend IV abx overnight d/c on po abx Continue local wound care with Mesalt TID f/u w/ Dr. Muñoz on Tuesday. Qualifiers: Encounter type: initial encounter Qualified Code(s): T81.31XA - Disruption of external operation (surgical) wound, not elsewhere classified, initial encounter Subjective Principal diagnosis: L TKA Interval history: Pt presented to ER last night with swelling, pain and redness at her L TKA site. Pt reports an eschar at to of wound that fell off yesterday and there was drainage. She says the pain is better today and the redness has gone down. L knee: open wound at proximal end of incision Fibrinous buildup was debrided, getting to healthy tissue. Wound is 1.5 cm in diam, 1 cm deep. Pin hole opening more proximally that communicateds with larger opening. ! cm undermining distally, no purulent fluid encountered. Minimal erythema, no warmth. + knee effusion Fair ROM w/o pain Objective Vital signs: Vital Signs Temp Pulse Resp BP Pulse Ox 11/20/16 14:59 98.3 F 97 16 109/61 93 11/20/16 10:52 97.9 F 81 14 105/70 93 11/20/16 07:14 97.7 F 90 16 128/79 99 11/20/16 06:20 0 0/0 11/20/16 05:30 80 20 119/68 97 Intake and Output 11/20/16 11/20/16 11/20/16 07:59 15:59 23:59 Intake Total 700 / 700 Output Total 0 / 0 400 / 400 Balance 0 / 0 300 / 300 Intake: IV Fluids 100 / 100 Merrem 1,000 MG In 0.9 % 100 / 100 Sodium Chloride (Mini-Bag +) 100 ML @ 200 mls/hr IVPB Q8HR ELVIN Rx#: [id number] Oral 600 / 600 Output: Urine 0 / 0 400 / 400 Other: Meal Lunch Percent of Meal Consumed 25% # Voids 1 - Labs CBC & BMP: 11/20/16 00:05 11/20/16 00:05 Labs: Abnormal lab results Hgb 10.3 g/dL (11.5-15.4) L 11/20/16 00:05 Hct 34.3 % (35.3-44.9) L 11/20/16 00:05 MCV 80.7 fL (83.0-100.0) L 11/20/16 00:05 MCH 24.2 pg (28.0-33.3) L 11/20/16 00:05 MCHC 30.0 g/dL (31.6-35.5) L 11/20/16 00:05 RDW 15.7 % (11.5-14.5) H 11/20/16 00:05 ESR 38 mm/hr (0-15) H 11/20/16 06:40 PT 29.8 Seconds (9.4-12.1) H 11/20/16 06:40 Potassium 3.3 mEq/L (3.5-4.5) L 11/20/16 00:05 Est GFR (Non-Af Amer) 57 (> 60) L 11/20/16 00:05 C-Reactive Protein 30 mg/L (Less than 5) H 11/20/16 06:40 Consult Discharge Plan - Plan Referrals: Eduardo Floyd DO [Primary Care Provider] -
[2016-11-20] MEDS ORDERED: *HR* Warfarin 5 MG TABLET PO SCH ×2 (18:00)
[2016-11-20] MEDS ORDERED: Warfarin perPT PO PRN (18:00)
[2016-11-20] MEDS ORDERED: amLODIPine 5 MG TABLET PO SCH (21:00)
[2016-11-20 23:39] LABS: Bilirubin,Urine Negative (Negative); Blood,Urine Negative (Negative); Clarity,Urine Clear (Clear); Color,Urine Yellow (Yellow); Glucose,Urine (UA) Normal (Normal); Ketones,Urine Negative (Negative); Leukocyte Esterase,Urine Trace (Negative); Nitrite,Urine Negative (Negative); Protein,Urine Negative (Neg-Trace); Urobilinogen,Urine Normal (Normal)
[2016-11-20 23:42] LABS: Bacteria,Urine None Seen per hpf (None-Few); Hyaline Casts,Urine None Seen per lpf (None-Few); RBC,Urine 0-3 per hpf (0-3); Squamous Epithelial Cell,Urine Few per lpf (None-Few); WBC,Urine 0-3 per hpf (0-3)
[2016-11-21] MEDS: Meropenem 1,000 MG in 0.9 % Sodium Chloride Mini Bag 100 ML IVPB SCH ×2 (00:01→08:23)
[2016-11-21 03:11] LABS: Prothrombin Time 33.8 Seconds (9.4-12.1)
[2016-11-21 03:13] LABS: Activated Partial Thrombo Time 34.1 Seconds (26.0-36.0)
[2016-11-21] MEDS: 0.9 % Sodium Chloride 1,000 ML IVC SCH (05:49)
[2016-11-21] MEDS: Vancomycin 1,000 MG in D5% in Water 250 ML IVPB SCH (05:49)
--- NOTE | 2016-11-21 08:10 | Discharge Summary ---
Date of Encounter: 11/21/16 Time of Encounter: 08:07 - Discharge Diagnosis (1) Knee pain, left Priority: Primary Status: Acute Qualifiers: Chronicity: acute Qualified Code(s): M25.562 - Pain in left knee (2) PAF (paroxysmal atrial fibrillation) Priority: Secondary Status: Chronic (3) Septic joint of left knee joint Priority: Secondary Status: Ruled-out Qualifiers: Septic arthritis organism: due to unspecified organism Qualified Code(s): M00.9 - Pyogenic arthritis, unspecified (4) Infection of total knee replacement Priority: Secondary Status: Ruled-out Qualifiers: Encounter type: initial encounter Qualified Code(s): T84.59XA - Infection and inflammatory reaction due to other internal joint prosthesis, initial encounter; Z96.659 - Presence of unspecified artificial knee joint (5) Wound dehiscence, external operation Priority: Secondary Status: Acute Qualifiers: Encounter type: initial encounter Qualified Code(s): T81.31XA - Disruption of external operation (surgical) wound, not elsewhere classified, initial encounter - Discharge Medications Prescriptions: Sodium Chloride [Mesalt] 1 each TP TID #30 bandage Sulfamethoxazole/Trimeth DS [Bactrim DS] 1 each PO BID #20 tablet Warfarin [Coumadin] 2 mg PO DAILY 10 Days Home Medications: Alendronate Sodium [Fosamax] 70 mg PO FR 11/18/15 [History] Hydrochlorothiazide 12.5 mg PO QAM 11/18/15 [History] Metoprolol XL (24 HR) Succ [Toprol XL] 25 mg PO QAM 11/18/15 [History] Omeprazole [PriLOSEC] 20 mg PO QAM 11/18/15 [History] PredniSONE 5 mg PO QAM 11/18/15 [History] OxyCODONE Immed Rel [Roxicodone 5 MG] 5 - 10 mg PO Q6HR PRN #40 tablet 09/28/16 [Rx] Sodium Chloride [Mesalt] 1 each TP TID #30 bandage 11/21/16 [Rx] Sulfamethoxazole/Trimeth DS [Bactrim DS] 1 each PO BID #20 tablet 11/21/16 [Rx] Warfarin [Coumadin] 2 mg PO DAILY 10 Days 11/21/16 [Rx] Allergies/Adverse Reactions: Allergies codeine Allergy (Verified 11/20/16 00:05) Dizziness albuterol Adverse Reaction (Verified 11/20/16 00:05) Blisters in mouth cephalexin [From Keflex] Adverse Reaction (Verified 11/20/16 00:05) blisters in mouth levofloxacin Adverse Reaction (Verified 11/20/16 00:05) patient unsure of reaction Procedures/tests Complete & Pending: Procedures Performed prior 72 hours Category Date Time Status ECG 12 lead ECG [ECG] Stat Y 11/20/16 06:10 Ordered Date of admission: 11/20/16 05:16 Primary care physician: Iván Rees Consults: 11/20/16 06:14 Consult to Occupational Therapy [CONS] Routine Comment: Evaluate, develop and implement POC Consult to Physical Therapy [CONS] Routine Comment: Evaluate, develop and implement POC 11/20/16 08:00 Consult to Physician [CONS] Routine Consulting Provider: Narinder White Reason for Consult: 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 His evaluate and advise. Time Notified: 06:15 Call Completed: Yes - Patient Status Disposition: Home, Self-Care Condition: Good Functional capacity at discharge: independent ambulation Overall status at discharge: patient is progressing back to baseline - Discharge Instructions Instructions: Atrial Fibrillation (DC) Follow Up With: Eduardo Floyd DO [Primary Care Provider] - Ashwin Muñoz MD [Partnered Physician] - (TOmorrow) Additional Instructions: Drink plenty of fluids while taking bactrim. Decrease coumadin dosage to 2 mg PO daily while on this medication. Follow up with coumadin clinic for further recommendations - Diet and Activity Activity: increase activity as tolerated Diet: low fat, low cholesterol, low salt diet Hospital course: Ms. Sabillon is a 71 year old female with history of atrial fibrillation, hypertension, gastroesophageal reflex disease status post recent left knee replacement was hospitalized here with swelling and inflammation surrounding her left knee joint. There was initial concern for septic arthritis. Patient was started on antibiotics. Patient does not appear to be having septic arthritis at this time but she does have wound dehiscence near the upper part of the incision of her surgical site with some infection and cellulitis involving this region. With IV antibiotics the swelling has significantly improved along with the erythema. She was evaluated by orthopedics and recommended IV antibiotics initially followed by oral antibiotics and follow-up with orthopedics as outpatient. Discharged today on Bactrim and will follow up with orthopedics tomorrow. Given the interaction of Bactrim with Coumadin that the patient takes for anticoagulation related to atrial fibrillation and increasing the dosage of her Coumadin to 2 mg daily. She can follow up further with the Coumadin clinic that she uses to better titrate it further. Currently her INR is 3 - Time Spent with Patient Total time spent providing and/or coordinating discharge services: Greater than 30 minutes (35 min) - Constitutional Vitals: Temp Pulse Resp BP Pulse Ox 98.2 F 85 14 151/86 97 11/21/16 07:12 11/21/16 07:12 11/21/16 07:12 11/21/16 07:12 11/21/16 07:12 General appearance: Present: cooperative, A&O X 3, no acute distress, answers questions appropriately - Respiratory Respiratory exam: Present: CTAB. Absent: accessory muscle use, rales, rhonchi, wheezes - Cardiovascular Cardiovascular exam: Present: RRR, +S1, +S2. Absent: diastolic murmur, gallop, rubs, systolic murmur - GI/Abdominal GI/Abdominal exam: Present: normal bowel sounds, soft, no peritoneal signs. Absent: distended, tenderness - Extremities Exam Extremities exam: Present: warm, radial pulses palpable and symetrical. Absent : calf tenderness, cyanotic, pedal edema Additional comments: Swelling over left knee joint and erythema improving. Open wound has been cleaned and bandage applied - Neurological Exam Neurological exam: Present: alert, oriented X3, no focal deficits. Absent: facial droop, speech deficit
[2016-11-21] MEDS: Aspirin Enteric Coated 81 MG Tablet PO SCH (08:24)
[2016-11-21] MEDS: predniSONE 5 MG TABLET PO SCH (08:24)
[2016-11-21] MEDS: Metoprolol XL (24 HR) Succ 25 MG TAB.ER.24H PO SCH (08:24)
[2016-11-21 10:59] VITALS: BP 149/86
[2016-11-21] MEDS ORDERED: Aminoglycoside Consult 1 EACH MC ONE (11:46)
[2016-11-21] MEDS ORDERED: *HR* Warfarin 2.5 MG TABLET PO SCH ×2 (18:00)
== END 2016-11-21 11:47 | disposition home or self-care (01) ==
LOC: EMEROO 23:59 → 3ANU 23:59
PROVIDERS: ADMIT Internal Medicine; ATTEND Internal Medicine